=== PATIENT | female | born 1995 | race Hispanic/Latino ===

== ENCOUNTER 2017-05-30 14:33 | Emergency (ER) | payer OTHER ==
--- OUTSIDE RECORDS SUMMARY | 2017-05-30 14:36 | XMS REPORT | Clinical Summary ---
:1995 Author Organization [facility] Address [address] [place] [address] Phone Care Team Providers Name Role Phone Unavailable Primary Care Provider Unavailable Allergies No Known Allergies Current Medications Prescription Sig. Disp. Refills Start Date End Date Status MEDROXYPROGESTERONE Inject Active ACETATE (DEPO-PROVERA IM) intramuscularly . BUDESONIDE/FORMOTEROL Inhale by mouth Active FUMARATE (SYMBICORT INHL) via inhaler. naproxen (NAPROSYN) 500 Take 1 tablet 20 tablet 0 01/05/2016 MG tablet (500 mg total) 7 by mouth 2 (two) times daily with breakfast and dinner. Active Problems Not on file Social History Tobacco Use Types Packs/Day Years Used Date Current Every Day Smoker Cigarettes 0.25 Alcohol Use Drinks/Week oz/Week Comments No Sex Assigned at Date Recorded Not on file Last Filed Vital Signs Not on file Plan of Treatment Not on file Results Not on fileafter 05/29/2016
[2017-05-30] MEDS ORDERED: HYDROCODONE/APAP 5/325 MG TAB ONE (15:11)
--- NOTE | 2017-05-30 16:11 | RAD REPORT ---
EXAM DESCRIPTION: RAD - Ankle Left 3 View -05/30/2017 4:04 pm CLINICAL HISTORY: Left ankle pain status post injury FINDINGS: No fracture or dislocation is seen. Soft tissue swelling is present
--- NOTE | 2017-05-30 16:18 | EDPHYS ---
Physician Documentation [facility] Name: Britney Umana Age: 21 yrs Sex: Female : 1995 Arrival Date: 05/30/2017 Time: 14:36 Bed 23 Private MD: ED Physician Pieter Medrano HPI: 05/30 15:07 This 21 yrs old Female presents to ER via Wheelchair with complaints of Ankle kb Injury. 15:07 The patient presents with decreased range of motion, an injury, pain, that is acute, kb tenderness. The complaints affect the left ankle. Onset: The symptoms/episode began/occurred just prior to arrival. Context: The problem was sustained outdoors, resulted from walking and twisted ankle, The mechanism of injury involved inversion of the affected ankle. The patient is unable to bear weight. The patient is not able to ambulate. Associated signs and symptoms: The patient has no apparent associated signs or symptoms, Pertinent negatives: calf tenderness, fever, nausea, numbness, rash, swelling, tingling, vomiting, warmth, weakness. Modifying factors: The symptoms are alleviated by nothing, the symptoms are aggravated by weight bearing, movement. Severity of symptoms: At their worst the symptoms were mild, moderate, in the emergency department the symptoms are unchanged. The patient has not experienced similar symptoms in the past. The patient has not recently seen a physician. 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 - Social history:: Smoking status: Patient uses tobacco products, smokes one-half pack cigarettes per day. ROS: 15:07 Constitutional: Negative for fever, chills, and weight loss, Cardiovascular: Negative kb for chest pain, palpitations, and edema, Respiratory: Negative for shortness of breath, cough, wheezing, and pleuritic chest pain, Abdomen/GI: Negative for abdominal pain, nausea, vomiting, diarrhea, and constipation, Skin: Negative for injury, rash, and discoloration, Neuro: Negative for headache, weakness, numbness, tingling, and seizure. 15:07 MS/extremity: Positive for injury or acute deformity, decreased range of motion, pain, tenderness. Exam: 15:07 Constitutional: This is a well developed, well nourished patient who is awake, alert, kb and in no acute distress. Head/Face: Normocephalic, atraumatic. Chest/axilla: Normal chest wall appearance and motion. Nontender with no deformity. No lesions are appreciated. Cardiovascular: Regular rate and rhythm with a normal S1 and S2. No gallops, murmurs, or rubs. Normal PMI, no JVD. No pulse deficits. Respiratory: Lungs have equal breath sounds bilaterally, clear to auscultation and percussion. No rales, rhonchi or wheezes noted. No increased work of breathing, no retractions or nasal flaring. Abdomen/GI: Soft, non-tender, with normal bowel sounds. No distension or tympany. No guarding or rebound. No evidence of tenderness throughout. Skin: Warm, dry with normal turgor. Normal color with no rashes, no lesions, and no evidence of cellulitis. Neuro: Awake and alert, GCS 15, oriented to person, place, time, and situation. Cranial nerves II-XII grossly intact. Motor strength 5/5 in all extremities. Sensory grossly intact. Cerebellar exam normal. Normal gait. 15:07 Musculoskeletal/extremity: Extremities: grossly normal except: noted in the left lateral ankle: decreased ROM, pain, tenderness, ROM: limited active range of motion, in the left lateral ankle, Circulation is intact in all extremities. Sensation intact. Weight bearing: is unable to bear weight. Vital Signs: 14:51 BP 119 / 66; Pulse 96; Resp 17; Temp 98.0; Pulse Ox 97% on R/A; Weight 92.99 kg; Height aj 5 ft. 2 in. (157.48 cm); Pain 7/10; 16:50 BP 125 / 76; Pulse 99; Resp 16; Pulse Ox 97% on R/A; rk2 14:51 Body Mass Index 37.49 (92.99 kg, 157.48 cm) aj MDM: 15:04 Patient medically screened. kb 15:13 Data reviewed: vital signs, nurses notes. Data interpreted: Pulse oximetry: on room air kb is 97 %. Interpretation: normal. 16:16 Counseling: I had a detailed discussion with the patient and/or guardian regarding: the kb historical points, exam findings, and any diagnostic results supporting the discharge/admit diagnosis, radiology results, the need for outpatient follow up, a family practitioner, to return to the emergency department if symptoms worsen or persist or if there are any questions or concerns that arise at home. 05/30 14:52 Order name: Ankle Left 3 View XRAY; Complete Time: 16:16 kb 05/30 16:17 Order name: Crutches; Complete Time: 16:54 kb 05/30 16:17 Order name: Ankle Splint: Aircast; Complete Time: 16:54 kb Administered Medications: 15:12 Drug: [place] 5 mg-325 mg 1 tabs {Note: Rates pain 10/28.} Route: PO; rk2 15:45 Follow up: Response: No adverse reaction rk2 16:27 Drug: TORadol 60 mg Route: IM; Site: right deltoid; rk2 16:50 Follow up: Response: No adverse reaction rk2 Disposition: 05/31 08:09 Co-signature as Attending Physician, Pieter Medrano MD I agree with the assessment and wa plan of care. Disposition: 05/30/17 16:17 Discharged to Home. Impression: Sprain of unspecified ligament of left ankle. - Condition is Stable. - Discharge Instructions: Ankle Sprain, [id number]. - Prescriptions for Diclofenac Sodium 75 mg Oral Tablet, Delayed Release (E.C.) - take 1 tablet by ORAL route 2 times per day As needed; 30 tablet. - Medication Reconciliation Form, Thank You Letter, Antibiotic Education, Prescription Opioid Use form. - Follow up: Emergency Department; When: As needed; Reason: Worsening of condition. Follow up: Private Physician; When: 2 - 3 days; Reason: Recheck today's complaints, Continuance of care, Re-evaluation by your physician. Signatures: Dispatcher [employer] Em Nicolas, RYAN SARMIENTO-Gabriela Davidson, RN Pieter Keenan MD MD wa Kidder, Rhonda RN RN rk2
--- NOTE | 2017-05-30 16:18 | ER ---
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 Patient aj reports she is unable to bare weight. Transition of care: patient was not received from another setting of care. Onset of symptoms was May 30, 2017. Note Patient is laughing with friend in triage and drinking from Sonic cup. Care prior to arrival: None. 14:50 Method Of Arrival: Wheelchair aj 14:50 Acuity: CARLYLE 4 aj Triage Assessment: 14:51 General: Appears in no apparent distress. comfortable, Behavior is calm, cooperative, aj appropriate for age. Pain: Complains of pain in anterior aspect of left ankle Pain currently is 7 out of 10 on a pain scale. Neuro: Level of Consciousness is awake, alert, obeys commands, Oriented to person, place, time, situation. Respiratory: Airway is patent Respiratory effort is even, unlabored, Respiratory pattern is regular, symmetrical. Derm: Skin is intact, is healthy with good turgor, Skin is pink, warm \T\ dry. normal. Musculoskeletal: Swelling present in anterior aspect of left ankle Reports pain in anterior aspect of left ankle. RN NIGHT: 14:51 LMP 05/30/2017 aj Historical: - Allergies: 14:51 No Known Allergies; aj - Home Meds: 14:51 None [Active]; aj - PMHx: 14:51 Asthma; aj - PSHx: 14:51 None; aj - Immunization history:: Adult Immunizations up to date. - Social history:: Smoking status: Patient uses tobacco products, smokes one-half pack cigarettes per day. Screenin:16 Abuse screen: Denies threats or abuse. Nutritional screening: No deficits noted. rk2 Tuberculosis screening: No symptoms or risk factors identified. Fall Risk Fall in past 12 months (25 points). Assessment: 15:17 General: Appears in no apparent distress. well groomed, well developed, well nourished, rk2 Behavior is calm, cooperative. Pain: Complains of pain in left lateral ankle and left leg and anterior aspect of left ankle. Neuro: Level of Consciousness is alert, obeys commands, Oriented to person, place, time, situation. Respiratory: Airway is patent Trachea midline Respiratory effort is even, unlabored, Respiratory pattern is regular, symmetrical. Derm: Skin is pink, warm \T\ dry. Injury Description: Mild swelling to left ankle, pain on palpation. 16:00 Reassessment: Pt. resting in room with a friend \T\ bedside... appears to be in no rk2 obvious distress. Pt. voiced no needs \T\ this time. Vital Signs: 14:51 BP 119 / 66; Pulse 96; Resp 17; Temp 98.0; Pulse Ox 97% on R/A; Weight 92.99 kg; Height aj 5 ft. 2 in. (157.48 cm); Pain 7/10; 16:50 BP 125 / 76; Pulse 99; Resp 16; Pulse Ox 97% on R/A; rk2 14:51 Body Mass Index 37.49 (92.99 kg, 157.48 cm) aj ED Course: 14:36 Patient arrived in ED. sb2 14:51 Triage completed. aj 14:51 Arm band placed on left wrist. Patient placed in waiting room, Patient notified of wait aj time. X-ray ordered. 15:04 Ken Rai PA is PHCP. cp 15:04 Pieter Medrano MD is Attending Physician. cp 15:04 PHCP role handed off by Ken Rai PA kb 15:04 Em Harris FNP-C is PHCP. kb 15:08 Niki Powers RN is Primary Nurse. rk2 15:16 Patient has correct armband on for positive identification. Bed in low position. Call rk2 light in reach. 15:55 X-ray completed. Portable x-ray completed in exam room. Patient tolerated procedure ml well. 15:56 Ankle Left 3 View XRAY In Process Unspecified. EDMS 16:55 Crutch training done. Air stirrup applied to left ankle. Notified patient to elevate to ag prevent swelling and not to make it to tight. 17:02 No provider procedures requiring assistance completed. Patient did not have IV access rk2 during this emergency room visit. Administered Medications: 15:12 Drug: [place] 5 mg-325 mg 1 tabs {Note: Rates pain 9/10.} Route: PO; rk2 15:45 Follow up: Response: No adverse reaction rk2 16:27 Drug: TORadol 60 mg Route: IM; Site: right deltoid; rk2 16:50 Follow up: Response: No adverse reaction rk2 Outcome: 16:17 Discharge ordered by . leon 17:02 Discharged to home via wheelchair. rk2 17:02 Condition: good 17:02 Discharge instructions given to patient, Prescriptions given X 1. 17:03 Patient left the ED. rk2 Signatures: Dispatcher [employer] EDMS Em Harris, CHIEF INFORMATION OFFICER-C CHIEF INFORMATION OFFICER-CkGabriela Ingram, RN RN Krystyna Chavez Ana ag Page, Corey, PA PA cp Kidder, Rhonda RN RN rk2 Tamia Kirkland sb2
[2017-05-30] MEDS ORDERED: KETOROLAC 30 MG/ML INJ ONE (16:23)
== END 2017-05-30 17:03 | disposition home or self-care (01) ==
LOC: ER 14:33
DX: S93.402A Sprain of unspecified ligament of left ankle, initial encounter (principal); X50.1XXA Overexertion from prolonged static or awkward postures, initial encounter; Y93.01 Activity, walking, marching and hiking; Y92.9 Unspecified place or not applicable
CPT/HCPCS: 96372; 99284

== ENCOUNTER 2017-09-13 15:22 | Emergency (ER) | payer OTHER ==
--- OUTSIDE RECORDS SUMMARY | 2017-09-13 15:25 | XMS REPORT | Clinical Summary ---
:1995 Author Organization [facility] Address [address] [place] [address] Phone Care Team Providers Name Role Phone [...] Not on file Results Not on fileafter 09/12/2016
[2017-09-13] MEDS ORDERED: DIPHENHYDRAMINE 50 MG/ML VIAL ONE (16:18)
[2017-09-13] MEDS ORDERED: METOCLOPRAMIDE 10 MG/2mL INJ ONE (16:18)
[2017-09-13] MEDS ORDERED: NA CHLORIDE 0.9% 1,000 ML ONE (16:19)
[2017-09-13 16:31] LABS: Urine Blood 2+ (NEG); Urine Glucose NEGATIVE (NEG); Urine Protein TRACE (NEG); Urine pH 5.5 (5.0-7.0)
[2017-09-13 16:43] LABS: Absolute Lymphocytes (CBC) 2.4 K/uL (0.7-4.9); Absolute Monocytes 0.8 K/uL (0.1-1.3); Absolute Neutrophil 8.6 K/uL (1.8-8.0); Basophils % 0.8 % (0-1.3); Eosinophils % 0.5 % (0-4.4); Hematocrit 44.5 % (36.0-45.0); MCH 28.9 pg (27.0-35.0); MCV 87.3 fL (80-100); MPV 8.1 fL (7.6-11.3); Monocytes % 6.5 % (3.3-12.3)
[2017-09-13 16:59] LABS: BUN Blood Urea Nitrogen 9 mg/dL (7-18); Bicarbonate 24 mmol/L (21-32); Glucose Level 76 mg/dL (74-106); Potassium 3.7 mmol/L (3.5-5.1); Sodium Level 139 mmol/L (136-145)
--- NOTE | 2017-09-13 17:20 | EDPHYS ---
Physician Documentation [facility] Name: Britney Umana Age: 22 yrs Sex: Female : 1995 Arrival Date: 09/13/2017 Time: 15:30 Bed 19 Private MD: ED Physician Ken Tamayo HPI: 09/13 16:05 This 22 yrs old Female presents to ER via Ambulatory with complaints of CANT cp EAT. 16:05 multiple complaints: decreased appetite, insomnia, headache. Onset: The cp symptoms/episode began/occurred 2 week(s) ago. 16:05 Severity of symptoms: in the emergency department the symptoms are unchanged despite cp home interventions. Patient denies taking any prescribed or OTC meds or supplements. Denies depression. 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 - Social history:: Smoking status: Patient uses tobacco products, 4- 5 cigarettes per week, Patient uses alcohol, occasionally. Patient/guardian denies using street drugs. - Ebola Screening: : Patient denies travel to an Ebola-affected area in the 21 days before illness onset. ROS: 16:12 Constitutional: Negative for body aches, chills, fever, poor PO intake, weight loss. cp 16:12 Eyes: Negative for injury, pain, redness, and discharge. cp 16:12 ENT: Negative for drainage from ear(s), ear pain, rhinorrhea, sinus congestion, sore throat, difficulty swallowing, difficulty handling secretions. 16:12 Neck: Negative for pain with movement, pain at rest, stiffness, swollen nodes. 16:12 Cardiovascular: Negative for chest pain, palpitations. 16:12 Respiratory: Negative for cough, shortness of breath, wheezing. 16:12 Abdomen/GI: Positive for nausea, Negative for abdominal pain, vomiting, diarrhea, constipation, black/tarry stool, rectal bleeding. 16:12 Back: Negative for pain at rest, pain with movement, radiated pain. 16:12 : Negative for urinary symptoms, vaginal bleeding, vaginal discharge. 16:12 Skin: Negative for cellulitis, rash. 16:12 Neuro: Positive for dizziness, headache, Negative for altered mental status, speech changes, syncope, near syncope, weakness. 16:12 Psych: Positive for insomnia, Negative for anxiety, depression, auditory hallucinations, visual hallucinations, homicidal ideation, suicide gesture, suicidal ideation. 16:12 All other systems are negative. Exam: 16:18 Constitutional: The patient appears in no acute distress, alert, awake, non-toxic, well cp developed, well nourished. 16:18 Head/Face: Normocephalic, atraumatic. Eyes: Pupils equal round and reactive to light, cp extra-ocular motions intact. Lids and lashes normal. Conjunctiva and sclera are non-icteric and not injected. Cornea within normal limits. Periorbital areas with no swelling, redness, or edema. ENT: Nares patent. No nasal discharge, no septal abnormalities noted. Tympanic membranes are normal and external auditory canals are clear. Oropharynx with no redness, swelling, or masses, exudates, or evidence of obstruction, uvula midline. Mucous membranes moist. Neck: Trachea midline, no thyromegaly or masses palpated, and no cervical lymphadenopathy. Supple, full range of motion without nuchal rigidity, or vertebral point tenderness. No Meningismus. Chest/axilla: Normal chest wall appearance and motion. Nontender with no deformity. No lesions are appreciated. 16:18 Cardiovascular: Rate: normal, Rhythm: regular, Pulses: Pulses are 2+ in right radial artery and left radial artery. Edema: is not appreciated, JVD: is not appreciated. 16:18 Respiratory: the patient does not display signs of respiratory distress, Respirations: normal, no use of accessory muscles, no retractions, no splinting, no tachypnea, Breath sounds: are clear throughout, no decreased breath sounds, no stridor, no wheezing. 16:18 Abdomen/GI: Inspection: abdomen appears normal, Bowel sounds: active, all quadrants, Palpation: abdomen is soft and non-tender, in all quadrants, rebound tenderness, is not appreciated, voluntary guarding, is not appreciated, involuntary guarding, is not appreciated. 16:18 Back: pain, is absent, ROM is normal. 16:18 Skin: cellulitis, is not appreciated, no rash present. 16:18 Neuro: Orientation: to person, place \T\ time. Mentation: lucid, able to follow commands, Cerebellar function: is grossly normal, Motor: moves all fours, strength is normal, Sensation: is normal. 16:22 ECG was reviewed by the Attending Physician. cp Vital Signs: 15:35 BP 134 / 92; Pulse 88; Resp 18; Temp 97.7(TE); Pulse Ox 99% on R/A; Weight 92.99 kg aj1 (R); Height 5 ft. 2 in. (157.48 cm) (R); Pain 6/10; 16:25 BP 107 / 76 Supine; Pulse 92; em 16:25 BP 87 / 55 Sitting; Pulse 94; em 16:25 BP 78 / 69 Standing; Pulse 101; em 16:52 BP 100 / 61; Pulse 92; Resp 18; Pulse Ox 100% on R/A; dh3 17:53 BP 113 / 76; Pulse 85; Resp 18; Temp 98.1(O); Pulse Ox 100% on R/A; em 15:35 Body Mass Index 37.49 (92.99 kg, 157.48 cm) aj1 MDM: 15:42 Patient medically screened. cp 17:18 Data reviewed: vital signs, nurses notes, lab test result(s), EKG. cp 17:18 Test interpretation: by ED physician or midlevel provider: ECG. Counseling: I had a cp detailed discussion with the patient and/or guardian regarding: the historical points, exam findings, and any diagnostic results supporting the discharge/admit diagnosis, lab results, the need for outpatient follow up, a family practitioner. Response to treatment: the patient's symptoms have mildly improved after treatment, Patient requesting to be discharged to home, and as a result, I will discharge patient. 09/13 16:02 Order name: CBC with Diff; Complete Time: 17:02 09/13 17:02 Interpretation: Normal except: WBC 11.9; RBC 5.10; MCV 87.3; MCH 28.9; NEUT A 8.6. 09/13 16:02 Order name: BMP; Complete Time: 17:02 09/13 16:02 Order name: TSH; Complete Time: 17:02 09/13 16:16 Order name: Urine Dipstick--Ancillary (enter results); Complete Time: 17:02 09/13 17:02 Interpretation: Normal except: UKET 2+; UBLD 2+. cp 09/13 16:16 Order name: Urine --Ancillary (enter results); Complete Time: 17:02 eb 09/13 15:42 Order name: Urine Dipstick-Ancillary (obtain specimen); Complete Time: 16:23 cp 09/13 15:42 Order name: Urine Test (obtain specimen); Complete Time: 16:23 cp 09/13 15:42 Order name: Orthostatics; Complete Time: 16:23 cp 09/13 16:02 Order name: IV; Complete Time: 16:23 cp 09/13 16:02 Order name: Misc. Order: place in IV fluids; Complete Time: 17:53 cp 09/13 16:02 Order name: EKG; Complete Time: 16:03 cp 09/13 16:02 Order name: EKG - Nurse/Tech; Complete Time: 16:23 cp 09/13 17:04 Order name: PO challenge; Complete Time: 17:53 cp EC:22 Rhythm is regular. UT interval is normal. QRS interval is normal. QT interval is cp normal. No ST changes noted. Interpreted by me. Reviewed by me. Administered Medications: 16:48 Drug: NS 0.9% 1000 ml Route: IV; Rate: 1 bolus; Site: right antecubital; em 18:01 Follow up: IV Status: Completed infusion; IV Intake: 1000ml em 16:52 Drug: Reglan 20 mg Route: IVP; Site: right antecubital; iw 18:01 Follow up: Response: No adverse reaction em 16:52 Drug: Benadryl 25 mg Route: IVP; Site: right antecubital; iw 18:01 Follow up: Response: No adverse reaction em Disposition: 09/13/17 17:19 Discharged to Home. Impression: Dehydration, Headache. - Condition is Stable. - Discharge Instructions: Dehydration, Adult, General Headache Without Cause. - Prescriptions for Fiorinal 50- 325-40 mg Oral Capsule - take 1 capsule by ORAL route every 4 hours As needed - not to exceed 6 capsules per day; 20 capsule. Zofran 4 mg Oral Tablet - take 1 tablet by ORAL route every 12 hours As needed; 20 tablet. - Medication Reconciliation Form, Thank You Letter, Antibiotic Education, Prescription Opioid Use form. - Follow up: Private Physician; When: 1 - 2 days; Reason: Recheck today's complaints. - Problem is new. - Symptoms have improved. Addendum: 09/16/2017 10:05 Co-signature as Attending Physician, Ken Tamayo MD I agree with the assessment and c francisco plan of care. Signatures: Dispatcher [employer] Amy Corrigan RN RN aj1 Kne Tamayo MD MD cha Munoz, Edgar, SOFTWARE TEST TECHNICIAN SOFTWARE TEST TECHNICIAN em Karely Olvera RN OBIE iw Ken Rai PA PA cp Corrections: (The following items were deleted from the chart) 09/13 18:02 17:19 09/13/2017 17:19 Discharged to Home. Impression: Dehydration; Headache. Condition em is Stable. Forms are Medication Reconciliation Form, Thank You Letter, Antibiotic Education, Prescription Opioid Use. Follow up: Private Physician; When: 1 - 2 days; Reason: Recheck today's complaints. Problem is new. Symptoms have improved. cp
--- NOTE | 2017-09-13 17:20 | ER ---
Nurse's Notes [facility] Name: Britney Umana Age: 22 yrs Sex: Female : 1995 Arrival Date: 09/13/2017 Time: 15:30 Bed 19 Private MD: Diagnosis: Dehydration;Headache Presentation: 09/13 15:31 Presenting complaint: Patient states: "For a couple weeks now I've been having these aj1 little problems like staying up really late and it started getting worse and worse, where I go days without sleeping and when I do sleep its only for 2 hours. I've started slowing down on eating too. I haven't eaten anything in 3 days. I'm shaking I passed out twice today, my vision has been going in and out". Transition of care: patient was not received from another setting of care. Onset of symptoms was August 2017. Risk Assessment: Do you want to hurt yourself or someone else? Patient reports no desire to harm self or others. Initial Sepsis Screen: Does the patient meet any 2 criteria? No. Patient's initial sepsis screen is negative. Does the patient have a suspected source of infection? No. Patient's initial sepsis screen is negative. Care prior to arrival: None. 15:31 Method Of Arrival: Ambulatory aj1 15:31 Acuity: CARLYLE 3 aj1 Triage Assessment: 15:35 General: Appears in no apparent distress. comfortable, Behavior is calm, cooperative, aj1 appropriate for age. Pain: Complains of pain in forehead, right eye and left eye Pain currently is 6 out of 10 on a pain scale. Quality of pain is described as pounding. Neuro: Level of Consciousness is awake, alert, obeys commands, Oriented to person, place, time, situation, Speech is normal, Facial symmetry appears normal, Reports dizziness, a syncopal episode. Cardiovascular: Patient's skin is warm and dry. Respiratory: Airway is patent Respiratory effort is even, unlabored, Respiratory pattern is regular, symmetrical. SEO STRATEGIST: 15:35 LMP N/A - control method aj1 Historical: - Allergies: 15:35 No Known Allergies; aj1 - Home Meds: 15:35 None [Active]; aj1 - PMHx: 15:35 Asthma; aj1 - PSHx: 15:35 None; aj1 - Immunization history:: Flu vaccine is not up to date. - Social history:: Smoking status: Patient uses tobacco products, 4- 5 cigarettes per week, Patient uses alcohol, occasionally. Patient/guardian denies using street drugs. - Ebola Screening: : Patient denies travel to an Ebola-affected area in the 21 days before illness onset. Screenin:30 Abuse screen: Denies threats or abuse. Nutritional screening: No deficits noted. em Tuberculosis screening: No symptoms or risk factors identified. Fall Risk None identified. Assessment: 16:20 General: Appears in no apparent distress. comfortable, Behavior is calm, cooperative, em Reports chills for not eating and drinking minimally for 3 days, has headache that won't go away. Pain: Complains of pain in head Pain currently is 6 out of 10 on a pain scale. Neuro: Level of Consciousness is awake, alert, obeys commands, Oriented to person, place, time, situation. Cardiovascular: Capillary refill < 3 seconds Patient's skin is warm and dry. Respiratory: Airway is patent Respiratory effort is even, unlabored, Respiratory pattern is regular, symmetrical. GI: Abdomen is round non-distended. : Urine is clear. EENT: No signs and/or symptoms were reported regarding the EENT system. Derm: Skin is intact, Skin is pink, warm \\T\\ dry. Musculoskeletal: Range of motion: intact in all extremities. 16:45 Reassessment: Patient appears in no apparent distress at this time. I agree with above iw assessment by Jasvir Pollack LVN. 17:20 Reassessment: Patient appears in no apparent distress at this time. Patient and/or em family updated on plan of care and expected duration. Pain level reassessed. Patient is alert, oriented x 3, equal unlabored respirations, skin warm/dry/pink. 17:50 Reassessment: Patient appears in no apparent distress at this time. Patient and/or em family updated on plan of care and expected duration. Pain level reassessed. given water for PO challenge, tolerated well. Vital Signs: 15:35 BP 134 / 92; Pulse 88; Resp 18; Temp 97.7(TE); Pulse Ox 99% on R/A; Weight 92.99 kg aj1 (R); Height 5 ft. 2 in. (157.48 cm) (R); Pain 6/10; 16:25 BP 107 / 76 Supine; Pulse 92; em 16:25 BP 87 / 55 Sitting; Pulse 94; em 16:25 BP 78 / 69 Standing; Pulse 101; em 16:52 BP 100 / 61; Pulse 92; Resp 18; Pulse Ox 100% on R/A; dh3 17:53 BP 113 / 76; Pulse 85; Resp 18; Temp 98.1(O); Pulse Ox 100% on R/A; em 15:35 Body Mass Index 37.49 (92.99 kg, 157.48 cm) aj1 ED Course: 15:30 Patient arrived in ED. jb7 15:34 Triage completed. aj1 15:35 Arm band placed on. aj1 15:38 Patient placed in an exam room. aj1 15:41 Ken Rai PA is PHCP. cp 15:41 Ken Tamayo MD is Attending Physician. cp 15:49 Jasvir Pollack LVN is Primary Nurse. em 16:10 Urine collected: clean catch specimen, cloudy. 3 16:22 EKG done, by aviation safety technician. reviewed by Ken CROW. 3 16:22 Initial lab(s) drawn, by me, sent to lab. Inserted saline lock: 20 gauge in right 3 antecubital area, using aseptic technique. Blood collected. 16:30 Patient has correct armband on for positive identification. Bed in low position. Call em light in reach. Side rails up X2. 17:57 No provider procedures requiring assistance completed. IV discontinued, intact, em bleeding controlled, No redness/swelling at site. Pressure dressing applied. Administered Medications: 16:48 Drug: NS 0.9% 1000 ml Route: IV; Rate: 1 bolus; Site: right antecubital; em 18:01 Follow up: IV Status: Completed infusion; IV Intake: 1000ml em 16:52 Drug: Reglan 20 mg Route: IVP; Site: right antecubital; iw 18:01 Follow up: Response: No adverse reaction em 16:52 Drug: Benadryl 25 mg Route: IVP; Site: right antecubital; iw 18:01 Follow up: Response: No adverse reaction em Intake: 18:01 IV: 1000ml; Total: 1000ml. em Outcome: 17:19 Discharge ordered by . cp 18:02 Patient left the ED. em Signatures: Amy Chang RN RN aj1 Jasvir Pollack, BOARD FILLER BOARD FILLER em Karely Olvera RN RN iw Ken Rai PA PA cp Bryant, Jason jb7 Reena La 3 Delmi Fatima 3 Corrections: (The following items were deleted from the chart) 16:30 No provider procedures requiring assistance completed. em em 57 16:30 IV discontinued, intact, bleeding controlled, No redness/swelling at site. em Pressure dressing applied, em
--- NOTE | 2017-09-13 18:07 | EKG ---
Test Date: 2017-09-13 Test Time: 16:12:22 Body Man: SUZANNE MEASUREMENT RESULTS: Intervals: Rate: 87 MI: 124 QRSD: 80 QT: 362 QTc: 435 [place]: P: 15 MI: 124 QRS: 63 T: 26 INTERPRETIVE STATEMENTS: Normal sinus rhythm Normal ECG Compared to ECG 09/25/2014 01:32:05 No significant changes Electronically Signed On 09-13-17 18:06:16 CDT by Capo Baxter
== END 2017-09-13 18:02 | disposition home or self-care (01) ==
LOC: ER 15:22
DX: E86.0 Dehydration (principal); R51 Headache; J45.909 Unspecified asthma, uncomplicated; Z72.0 Tobacco use
CPT/HCPCS: 36415; 80048; 81003; 81025; 84443; 85025; 93005; 96361; 96374; 96375; 99284; J2765; J7030

== ENCOUNTER 2019-08-17 16:41 | Emergency (ER) | payer OTHER ==
--- OUTSIDE RECORDS SUMMARY | 2019-08-17 17:25 | XMS REPORT | Summary of Care ---
:1995 Author Organization [facility] - Health Address [address] [place] [address] Care Team Providers Name Role Phone Doctor Unassigned, Name Insurance Hmo Unavailable Sandro Moran MD Primary Care Provider Encounter Details Date Type Department Care Team Description 06/08/2019 Orders Only [facility] Doctor Unassigned, No [address] [facility] [place] [address] [address] [place] [address] Allergies Active Allergy Reactions Severity Noted Date Comments Egg Unknown - See comments 03/20/2013 Nasal congestion and stuffy nose Milk Other - See comments 03/20/2013 Nasal c ongestion and stuffy nose documented as of this encounter (statuses as of 06/08/2019) Medications Medication Sig Dispensed Refills Start Date End Date Status PROAIR HFA 90 INHALE 2 PUFFS 1 08/10/2015 Active mcg/actuation inhaler EVERY 4-6 HOURSAS NEEDED vit Take 1 Packet by 30 Each 6 01/20/2018 Active 50-vips-nbkjj-dha mouth daily. (SELECT-OB + DHA) 29 mg iron-1 mg -250 mg combo packIndications: Supervision of high risk , antepartum ferrous sulfate (IRON, Take 1 tablet by 60 tablet 3 08/21/2018 Active FERROUS SULFATE,) 325 mouth 2 (two) mg (65 mg iron) times daily. tabletIndications: Anemia of mother in , antepartum vitamin w/FA Take 1 tablet by 100 tablet 3 09/03/2018 Active tabletIndications: mouth daily. Liveborn , of [place] , born in hospital by vaginal delivery, Morbid obesity with body mass index of 40.0-49.9, Insufficient care in third trimester, 39 weeks gestation of , Encounter for elective induction of labor docusate calcium 240 Take 1 capsule by 30 capsule 1 09/03/2018 Active mg capsuleIndications: mouth once daily Liveborn infant, of as needed for [place] , Constipation. born in hospital by vaginal delivery, Morbid obesity with body mass index of 40.0-49.9, Insufficient care in third trimester, 39 weeks gestation of , Encounter for elective induction of labor ferrous sulfate 325 mg Take 1 tablet by 60 tablet 2 09/03/2018 Active (65 mg iron) mouth 2 (two) tabletIndications: times daily. Liveborn , of [place] , born in hospital by vaginal delivery, Morbid obesity with body mass index of 40.0-49.9, Insufficient care in third trimester, 39 weeks gestation of , Encounter for elective induction of labor ibuprofen 600 mg Take 1 tablet by 30 tablet 1 09/03/2018 Active tabletIndications: mouth every 6 Liveborn infant, of (six) hours as [place] , needed for Pain born in hospital by (scale 1-3) or vaginal delivery, Pain (scale 4-6) Morbid obesity with (Pain). Take with body mass index of food or milk. 40.0-49.9, Insufficient care in third trimester, 39 weeks gestation of , Encounter for elective induction of labor SERTraline (ZOLOFT) 50 Take 1 tablet by 30 tablet 2 09/24/2018 Active mg tabletIndications: mouth daily. depression documented as of this encounter (statuses as of 06/08/2019) Active Problems Problem Noted Date 39 weeks gestation of 09/01/2018 Insufficient care in third trimester 07/02/19 19 Right arm weakness 05/29/2018 Morbid obesity with body mass index of 40.0-49.9 05/29 Depression, unspecified depression type 02/19/2018 Rubella non-immune status, antepartum 02/19/2018 Overview: Address in Maternal varicella, non-immune 02/19/2018 Overview: Address in . High risk , antepartum 01/20/2018 Multiparity 01/20/2018 Obesity in 01/20/2018 Left breast mass 01/17/2017 Overview: LEFT BREAST: Solid mass on ultrasound at 2 o'clock. 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 Since it has grown in size over time histology using core biopsy is recommended at this time. OVERALL ASSESSMENT - CATEGORY 4A - LOW S USPICION END OF IMPRESSION Asthma 03/20/2013 Overview: ICD10 Diagnosis Term Manager Health Utility documented as of this encounter (statuses as of 06/08/2019) Resolved Problems Problem Noted Date Resolved Date Liveborn infant, of [place] , born in hospital by 09/03/2018 10/27/2018 vaginal delivery Encounter for elective induction of labor 09/01/2018 10/27/2018 24 weeks gestation of 05/29/2018 09/02/19 19 Nausea and vomiting during prior to 22 weeks 01/2009/01/2018 gestation Encounter for contraceptive management, unspecified type 11/201701/20/2018 Chlamydia trachomatis infection of lower genitourinary sites 01/18/2017 01/20/2018 Tobacco use disorder 01/17/2017 01/20/2018 Right foot pain 08/31/2015 01/17/2017 Lower back pain 03/20/2013 01/17/2017 Lump or mass in breast 03/20/2013 01/17/2017 Rubella immune 03/20/2013 01/17/2017 documented as of this encounter (statuses as of 06/08/2019) Immunizations Name Administration Dates Next Due HPV9 01/17/2017 Influenza Virus Vaccine 12/10/2017 Tdap 07/01/2018 documented as of this encounter Social History Tobacco Use Types Packs/Day Years Used Date Former Smoker Cigarettes 0.25 4 01/17/2013 - 1 03/08/2017 Smokeless Tobacco: Never Used Comments: desires to quit smoking- 4x a month Alcohol Use Drinks/Week oz/Week Comments No 0 Standard drinks or equivalent 0.0 Sex Assigned at Date Recorded Not on file Job Start Date Occupation Industry Not on file Not on file Not on file Travel History Travel Start Travel End No recent travel history available. documented as of this encounter Last Filed Vital Signs Not on filedocumented in this encounter Plan of Treatment Date Type Specialty Care Team Description 06/08/2019 Initial Visit [facility] [place]y [place], [employer] [address] [id number] 15 [phone] Health Maintenance Due Date Last Done Comments VARICELLA VACCINES (1 of 2 - 1998 2-dose childhood series) PNEUMOCOCCAL 0-64 YEARS 07/12/2003 COMBINED SERIES (1 of 1 - PPSV23) MENINGOCOCCAL B VACCINES (1 07/12/2007 of 2 - Risk Bexsero 2-dose series) WELL CARE VISIT: 12-21 YEARS 2009 (yearly) HPV VACCINES (2 - Female 02/14/2017 01/17/2017 3-dose series) PAP SMEAR 2018 INFLUENZA VACCINE (#1) 2018 12/10/2017, 12/10/2017 CHLAMYDIA SCREENING 08/19/2019 08/18/2018, 07/30/2018, 02/17/2018, Additional history exists DTaP,Tdap,and Td Vaccines (2 07/01/2028 07/01/2018 - Td) MENINGOCOCCAL VACCINE Aged Out No longer eligible based on patient 's age to complete this topic documented as of this encounter Procedures Procedure Name Priority Date/Time Associated Diagnosis Comme nts ASSIGNMENT OF BENEFITS Routine 06/08/2019 1:53 PM CDT documented in this encounter Results Not on filedocumented in this encounter Insurance Payer Benefit Plan / Subscriber ID Effective Dates Phone Addre ss Type Group [facility] MEDICAID OF xxxxxxxxx 2019-Present [phone] Medicaid [place] [id number] [place] [phone] documented as of this encounter Advance Directives Type Date Recorded 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
--- OUTSIDE RECORDS SUMMARY | 2019-08-17 17:25 | XMS REPORT | Clinical Summary ---
:1995 Author Organization [facility] Address [address] [place] [address] Care Team Providers Name Role Phone Juni Primary Care Provider Allergies No Known Allergies Medications Medication Sig Dispensed Refills Start Date End Date Status MEDROXYPROGESTERONE ACETATE Inject 0 Active (DEPO-PROVERA IM) intramuscular ly. BUDESONIDE/FORMOTEROL Inhale by 0 Active FUMARATE (SYMBICORT INHL) mouth via inhaler. Active Problems Not on file Social History Tobacco Use Types Packs/Day Years Used Date Current Every Day Smoker Cigarettes 0.25 Alcohol Use Drinks/Week oz/Week Comments No Sex Assigned at Date Recorded Not on file Job Start Date Occupation Industry Not on file Not on file Not on file Travel History Travel Start Travel End No recent travel history available. Last Filed Vital Signs Not on file Plan of Treatment Not on file Results Not on fileafter 08/16/2018 Insurance Payer Benefit Plan / Group Subscriber ID Type Phone A ddress MEDICAID MEDICAID [place] xxxxxxxxx Medicaid
--- OUTSIDE RECORDS SUMMARY | 2019-08-17 17:26 | XMS REPORT | Summary of Care ---
:1995 Author Organization [facility] Address [address] [place] [id number] Care Team Providers Name Role Phone Doctor Unassigned, Name Insurance Hmo Unavailable Sandro Moran MD Primary Care Provider Reason for Visit Reason Comments Initial Visit Encounter Details Date Type Department Care Team Description 06/08/2019 Initial [facility]- Julia England upervision of high risk , antepartum (Primary Dx); Visit Karen R, [employer] Multiparity; [address] [place] [address] Nausea and vomiting during p regnancy prior to 22 weeks gestation; [place], [place] History of anxiety; [id number] [place], [place] History of depression; [phone] [id number] History of asthma; [phone] Obesity in ; [phone] BMI 38.0-38.9,a dult (Fax) Allergies Active Allergy Reactions Severity Noted Date Comments Egg Unknown - See comments 03/20/2013 Nasal congestion and stuffy nose Milk Other - See comments 03/20/2013 Nasal c ongestion and stuffy nose documented as of this encounter (statuses as of 06/08/2019) Medications Medication Sig Dispensed Refills Start Date End Date Status PROAIR HFA 90 INHALE 2 PUFFS 1 08/10/2015 Active mcg/actuation EVERY 4-6 inhaler HOURSAS NEEDED proMETHazine 25 mg Take 1 tablet 30 tablet 1 06/08/2019 Active tabletIndications: by mouth every Nausea and 4 (four) hours vomiting during as needed for prior to Nausea and 22 weeks gestation Vomiting (N/V). vit Take 1 Packet 30 Each 6 06/08/2019 Ac tive 67-muax-ozexw-dha by mouth (SELECT-OB + DHA) daily. 29 mg iron-1 mg -250 mg combo packIndications: Supervision of high risk , antepartum vit Take 1 Packet 30 Each 6 01/20/2018 06/08/2019 D iscontinued 61-qgdf-eziqi-dha by mouth (SELECT-OB + DHA) daily. 29 mg iron-1 mg -250 mg combo packIndications: Supervision of high risk , antepartum ferrous sulfate Take 1 tablet 60 tablet 3 08/21/2018 0 Discontinued (IRON, FERROUS by mouth 2 SULFATE,) 325 mg (two) times (65 mg iron) daily. tabletIndications: Anemia of mother in , antepartum vitamin Take 1 tablet 100 tablet 3 09/03/2018 020 Discontinued w/FA by mouth tabletIndications: daily. Liveborn infant, of [place] , born in hospital by vaginal delivery, Morbid obesity with body mass index of 40.0-49.9, Insufficient care in third trimester, 39 weeks gestation of , Encounter for elective induction of labor docusate calcium Take 1 capsule 30 capsule 1 09/03/20182019 Discontinued 240 mg by mouth once capsuleIndications daily as : Liveborn infant, needed for of mchgee Constipation. , born in hospital by vaginal delivery, Morbid obesity with body mass index of 40.0-49.9, Insufficient care in third trimester, 39 weeks gestation of , Encounter for elective induction of labor ferrous sulfate Take 1 tablet 60 tablet 2 09/03/2018 0 Discontinued 325 mg (65 mg by mouth 2 iron) (two) times tabletIndications: daily. Liveborn infant, of [place] , born in hospital by vaginal delivery, Morbid obesity with body mass index of 40.0-49.9, Insufficient care in third trimester, 39 weeks gestation of , Encounter for elective induction of labor ibuprofen 600 mg Take 1 tablet 30 tablet 1 09/03/2018 06/08/19 20 Discontinued tabletIndications: by mouth every Liveborn infant, 6 (six) hours of [place] as needed for , born in Pain (scale hospital by 1-3) or Pain vaginal delivery, (scale 4-6) Morbid obesity (Pain). Take with body mass with food or index of milk. 40.0-49.9, Insufficient care in third trimester, 39 weeks gestation of , Encounter for elective induction of labor SERTraline Take 1 tablet 30 tablet 2 09/24/2018 06/08/2019 Dis continued (ZOLOFT) 50 mg by mouth tabletIndications: daily. depression documented as of this encounter (statuses as of 06/08/2019) Active Problems Problem Noted Date History of anxiety 06/08/2019 History of depression 06/08/2019 History of asthma 06/08/2019 BMI 38.0-38.9,adult 06/08/2019 39 weeks gestation of 09/01/2018 Insufficient care in third trimester 07/02/19 19 Right arm weakness 05/29/2018 Morbid obesity with body mass index of 40.0-49.9 05/29 Depression, unspecified depression type 02/19/2018 Rubella non-immune status, antepartum 02/19/2018 Overview: Address in Maternal varicella, non-immune 02/19/2018 Overview: Address in . Supervision of high risk , antepartum 018 Nausea and vomiting during prior to 22 weeks gestation 01/20/2018 Multiparity 01/20/2018 Obesity in 01/20/2018 Left breast mass 01/17/2017 Overview: LEFT BREAST: Solid mass on ultrasound at 2 o'clock. 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 Since it has grown in size over time histology using core biopsy is recommended at this time. 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 Estimated Date of Delivery Comments Yes 01/19/2020 Based on last menstr ual period of 04/14/2019 (Exact Date) documented as of this encounter (statuses as of 06/08/2019) Resolved Problems Problem Noted Date Resolved Date Liveborn infant, of [place] , born in hospital by 09/03/2018 10/27/2018 vaginal delivery Encounter for elective induction of labor 09/01/2018 10/27/2018 24 weeks gestation of 05/29/2018 09/02/19 19 Encounter for contraceptive management, unspecified type 11/201701/20/2018 [...] Use Types Packs/Day Years Used Date Current Some Day Smoker Cigarettes 0.25 4 12/21 - 01/06/2018 Smokeless Tobacco: Never Used Comments: 1-2 cig less than a day per wk Alcohol Use Drinks/Week oz/Week Comments No 0 Standard drinks or equivalent 0.0 Estimated Date of Delivery Comments Yes 01/19/2020 Based on last menstr ual period of 04/14/2019 (Exact Date) Sex Assigned at Date Recorded Not on file Job Start Date Occupation Industry Not on file Not on file Not on file Travel History Travel Start Travel End No recent travel history available. documented as of this encounter Last Filed Vital Signs Vital Sign Reading Time Taken Comments Blood Pressure 109/76 06/08/2019 2:14 PM CDT Pulse 91 06/08/2019 2:14 PM CDT Temperature 37.3 C (99.1 F) 06/08/2019 2:14 PM CDT Respiratory Rate 16 06/08/2019 2:14 PM CDT Oxygen Saturation - - Inhaled Oxygen Concentration - - Weight 95 kg (209 lb 8 oz) 06/08/2019 2:14 PM CDT Height 157.5 cm (5' 2") 06/08/2019 2:14 PM CDT Body Mass Index 38.32 06/08/2019 2:14 PM CDT documented in this encounter Progress Notes Julia England FNP - 06/08/2019 2:15 PM CDT Chief complaint: Chief Complaint Patient presents with Initial Visit HPI CC: Initial Visit Britney Umana is a 23 year old, , /White female. Patient's last menstrual period was 04/14/2019 (exact date). She is 7w6d with an intrauterine . Her Estimated Date of Delivery: 01/19/20. She is being seen today for her first obstetrical visit. She complains of nausea and vomiting. Patient has a history of depression and anxiety was on medication but is no longer taking them. Patient also so has a history of asthma, no current problems. Patient admits to being tested for COVID 19 in [place], results on chert, negative. She reports +FM and denies contractions, LOF and bleeding today.Patient denies current or past physical, sexual or emotional abuse. OB History Para Term AB Living 3 2 2 0 2 SAB TAB Ectopic Multiple Live Births 0 2 # Outcome Date GA Lbr Avtar/2nd Weight Sex Delivery Anes PTL Lv 3 Current 2 Term 09/02/18 39w3d 6 lb 5 oz (2.863 kg) F Vag-Spont JOSE 1 Term 02/02/14 37w0d 6 lb 15 oz (3.147 kg) F NORMAL SPONT N JOSE Histories OB History Para Term AB Living 3 2 2 0 2 SAB TAB Ectopic Multiple Live Births 0 2 # Outcome Date GA Lbr Avtar/2nd Weight Sex Delivery Anes PTL Lv 3 Current 2 Term 09/02/18 39w3d 6 lb 5 oz (2.863 kg) F Vag-Spont JOSE 1 Term 02/02/14 37w0d 6 lb 15 oz (3.147 kg) F NORMAL SPONT N JOSE Past Medical History: Diagnosis Date Anxiety 02/2018 resolved Asthma as a child, uses proair inhaler prn Depression, unspecified depression type 02/19/2018 Right foot pain 08/31/2015 Tobacco use disorder 01/17/2017 Family History Problem Relation Age of Onset Depression Mother Hypertension Mother Depression Maternal Aunt Breast Cancer Paternal Grandmother No Significant Medical Problems Father No Significant Medical Problems Sister No Significant Medical Problems Brother Arthritis NoFHx Asthma NoFHx defects NoFHx Colon Cancer NoFHx Ovarian Cancer NoFHx Uterine Cancer NoFHx Cancer NoFHx Diabetes NoFHx Genetic NoFHx Heart NoFHx High cholesterol NoFHx Mental retardation NoFHx Neurological NoFHx Osteoporosis NoFHx Psychiatry NoFHx Other - see comments NoFHx Family Status Relation Name Status Mo Alive MAunt (Not Specified) PGMo (Not Specified) Fa Alive Sis Alive Bro Alive NoFHx (Not Specified) Past Surgical History: Procedure Laterality Date INSERT CERVICAL DILATOR 09/01/2018 Social History Socioeconomic History Marital status: Single Spouse name: Not on file Number of children: Not on file Years of education: Not on file Highest education level: Not on file Occupational History Occupation: student Social Needs Financial resource strain: Not on file Food insecurity: Worry: Not on file Inability: Not on file Transportation needs: Medical: Not on file Non-medical: Not on file Tobacco Use Smoking status: Current Some Day Smoker Packs/day: 0.25 Years: 4.00 Pack years: 1.00 Types: Cigarettes Start date: 01/17/2013 Last attempt to quit: 01/06/2018 Years since quittin.4 Smokeless tobacco: Never Used Tobacco comment: 1-2 cig less than a day per wk Substance and Sexual Activity Alcohol use: No Alcohol/week: 0.0 standard drinks Drug use: No Sexual activity: Yes Partners: Male control/protection: None Comment: Last sexual intercourse: 04/05/2019 Lifestyle Physical activity: Days per week: Not on file Minutes per session: Not on file Stress: Not on file Relationships Social connections: Talks on phone: Not on file Gets together: Not on file Attends buddhist service: Not on file Active member of club or organization: Not on file Attends meetings of clubs or organizations: Not on file Relationship status: Not on file Intimate partner violence: Fear of current or ex partner: Not on file Emotionally abused: Not on file Physically abused: Not on file Forced sexual activity: Not on file Other Topics Concern Not on file Social History Narrative No domestic violence or abuse Patient lives with boyfriend and children. One inside dog. Religion preference is none. Social History Substance and Sexual Activity Sexual Activity Yes Partners: Male control/protection: None Comment: Last sexual intercourse: 04/05/2019 Genetic Screen Autism / Mental Retardation: No Brissa Disease: No Congenital Heart Defect: No Cystic Fibrosis: No Down Syndrome: No Familial Dysautonomia: No Hemophilia or other Blood Disorders: No Wilkes Chorea: No Maternal Metabolic Disorder--specify (eg. Type 1 Diabetes, PKU): No Muscular Dystrophy: No Neural Tube Defect: No Recurrent Loss or a Stillbirth: No Sickle Cell Disease or Trait: No German Sachs: No Teratological Substances (specify type & strength/dose) since LMP: No Thalassemia: No Other Inherited Genetic or Chromosomal Disorder (specify): No No Significant History of Genetic Disorders: No Significant History of Genetic Disorders Labs Labs are pending. Radiology No new radiology. Allergies Britney is allergic to eggs [egg] and milk. Medications Britney has a current medication list which includes the following prescription(s): proair hfa. Review of Systems Constitutional: Negative for activity change, appetite change, fatigue, unexpected weight change, weight gain and weight loss. HENT: Negative for sore throat. Eyes: Negative for visual disturbance. Respiratory: Negative for cough and shortness of breath. Breasts: Negative for discharge, mass, pain and unequal size. Cardiovascular: Negative for chest pain, palpitations and leg swelling. Gastrointestinal: Positive for nausea and vomiting. Negative for abdominal pain, anal bleeding, blood in stool, constipation, diarrhea and rectal pain. Genitourinary: Negative for bladder incontinence, dysuria, urgency, flank pain, vaginal bleeding, vaginal discharge, genital sores, vaginal pain and pelvic pain. Skin: Negative for color change and rash. Neurological: Negative. Negative for dizziness, syncope and headaches. Psychiatric/Behavioral: Negative for confusion, self-injury and sleep disturbance. The patient is not nervous/anxious. Hematological: Negative for cold intolerance and heat intolerance. Endocrine: Negative for hair loss, cold intolerance, heat intolerance, weight gain and weight loss. BP 109/76 (BP Location: Right arm, Patient Position: Sitting, BP CUFF SIZE: Adult Medium) | Pulse 91 | Temp 37.3 C (99.1 F) (Oral) | Resp 16 | Ht 5' 2" (1.575 m) | Wt 209 lb 8 oz (95 kg) | LMP 04/14/2019 (Exact Date) | BMI 38.32 kg/m Pregravid BMI: 38.2 Physical Exam Vitals reviewed. Constitutional: She is oriented to person, place, and time. She appears well- developed, well-nourished and well-groomed. She has no deformities. Neck: No tenderness and no mass. No thyroid nodules and no thyromegaly palpated. Cardiovascular: Regular rate and rhythm. No murmur auscultated. Pulmonary/Chest: Breath sounds clear to auscultation. Normal inspiratory effort. Abdominal: Abdomen is soft. No mass palpated. No tenderness present. There is no guarding. Neuro/Psychiatric: She has a normal mood and affect. She is oriented to person, place, and time. Skin: Skin normal. No lesion and no rash present. Tattoos present on bilateral arms, left thigh, right rib, left shoulder and back of right shoulder Breast: Right breast exhibits no mass, no nipple discharge and no tenderness. Left breast exhibits no mass, no nipple discharge and no tenderness. Normal left breast and normal right breast Rectal: normal rectum External genitalia: Normal external genitalia appropriate for age. Normal hair distribution. No labial lesion. Senior Policy Associate present for the exam: Gabriela Jason MA Vagina:Normal vagina. No lesion inspected. No abnormal vaginal discharge found. Cervix: Normal cervix. No lesion. No tenderness and no discharge present. Closed/50/-3 Uterus: Uterus is normal size and non-tender. 8cm Normal uterus Adnexa: Right adnexa without tenderness or mass. Left adnexa without tenderness or mass. Normal leftadnexa and normal right adnexa Anus/perineum: Normal perineum. PHYSICAL: General Exam: HEENT: Normal Thyroid: Normal Lymph Node: Normal Neurological: Normal Abdomen: Normal Skin: Normal Extremities: Normal Pelvic Exam: Vulva: Normal Vagina: Normal Senior Policy Associate present for the exam: Gabriela Jason MA Cervix: Normal Closed/50/-3 Membrane status: Intact Uterus: 8cm Weeks Adnexa: Normal Spines: Average Sacrum: Concave Subpubic Arch: Normal Assessment/Plan Supervision of high risk , antepartum (primary encounter diagnosis) Multiparity Comment: Routine Visit Plan: POCT URINALYSIS W SPECIFIC GRAVITY, POCT TEST, POCT URINALYSIS W SPECIFIC GRAVITY, GLUCOSE 1 HOUR POST PRANDIAL, CBC WITH DIFF, HEPATITIS B SURFACE ANTIGEN, HIV 1/2 AG-AB WITH REFLEX, POCT URINALYSIS W SPECIFIC GRAVITY, WORKUP, BLOOD BANK, RUBELLA SCREEN (MICHELLE) IGG, GALV ONLY - SYPHILIS IGG/IGM, URINE CULTURE, VZV ANTIBODY SCREEN, GC & CHLAMYDIA AMPLIFIED ASSAY, CBC WITH DIFF, HEPATITIS B SURFACE ANTIGEN, HIV 1/2 AG-AB WITH REFLEX, RUBELLA SCREEN (MICHELLE) IGG, GALV ONLY - SYPHILIS IGG/IGM, URINE CULTURE, VZV ANTIBODY SCREEN, GC & CHLAMYDIA AMPLIFIED ASSAY, CBC WITH DIFFERENTIAL, vit 30-jgkd-urmmb-dha (SELECT-OB + DHA) 29 mg iron-1 mg -250 mg combo pack, PAP Smear-Liquid Based Denies zika virus risk, signs and symptoms such as fever,rash,joint pain, conjunctivitis (red eyes), muscle pain, headaches; outside [place] travel to areas affected by zika, and FOB exposure to zika.Educated on use of mosquito repellent. Nausea and vomiting during prior to 22 weeks gestation Comment: patient reports symptoms Plan: proMETHazine 25 mg tablet History of anxiety History of depression Comment: denies any current complaints, patient denies any SI/HU thoughts or feelings. Plan: will continue to monitor History of asthma Comment: history, no current symtoms Plan: will continue to monitor Obesity in BMI 38.0-38.9,adult Comment: BMI: 38.32 Plan: Patient encouraged to limit weight gain and advised to eat healthy diet, fruits, vegetables, increased fiber and water intake and protein low in fat. Encouraged exercise for 30 min everyday; begin regimen with caution to prevent injury. Encouraged to decrease BMI to <25. Return to clinic in 4 weeks via tele health. Discussed treatment options. Medications as ordered. Reviewed patient instructions and provided printed copy. This visit did not involve counseling and coordination that comprised more than 50% of the visit time. GUILLERMINA Diaz 06/08/2019 3:16 PM Izabela Melendez RN - 06/08/2019 2:15 PM CDTPatient is 23 year old female here for current . Patient is . 1) Previous delivery methods Vaginal deliveries 2) Patient is experiencing mild cramping 3) Patient is not experiencing bleeding. 4) LMP: 04/14/2019 5) Last Pap was: N/a Results: N/a 6) Have you had a flu vaccine this season? Yes 7) PPD candidate? no 8) Patient complains of nausea and mild cramping to the lower abdomen. 9) Patient denies history of physical, emotional, or sexual abuse. Patient states she currently feels safe at home. NOB packet given and reviewed with patient. documented in this encounter Plan of Treatment Date Type Specialty Care Team Description 07/09/2019 Telemedicine Visit [facility] Romy England nda R, [employer] [address] [place], [place] [address] [phone] Name Type Priority Associated Diagnoses Order S chedule POCT URINALYSIS W LAB Routine Supervision of high 20 Occurrences starting SPECIFIC GRAVITY risk , 06/08/19 until antepartum 04/03/2020, 1 c ompleted GLUCOSE 1 HOUR POST LAB Routine Supervision of high O rdered: 06/08/2019 PRANDIAL risk , antepartum CBC WITH DIFF LAB Routine Supervision of high Expecte d: 06/08/2019, risk , Expires: antepartum HEPATITIS B SURFACE LAB Routine Supervision of high E xpected: 06/08/2019, ANTIGEN risk , Expires: antepartum HIV 1/2 AG-AB WITH REFLEX LAB Routine Supervision of high Expected: 06/08/2019, risk , Expires: antepartum POCT URINALYSIS W LAB Routine Supervision of high 20 Occurrences starting SPECIFIC GRAVITY risk , 06/08/19 until antepartum 04/03/2020 WORKUP, BLOOD LAB Routine Supervision of hig h Expected: 06/08/2019, BANK risk , Expires: antepartum RUBELLA SCREEN (MICHELLE) LAB Routine Supervision of hig h Expected: 06/08/2019, IGG risk , Expires: antepartum GALV ONLY - SYPHILIS LAB Routine Supervision of high Expected: 06/08/2019, IGG/IGM risk , Expires: antepartum URINE CULTURE LAB Routine Supervision of high Expecte d: 06/08/2019, risk , Expires: antepartum VZV ANTIBODY SCREEN LAB Routine Supervision of high E xpected: 06/08/2019, risk , Expires: antepartum GC & CHLAMYDIA AMPLIFIED LAB Routine Supervision of h igh Expected: 06/08/2019, ASSAY risk , Expires: antepartum CBC WITH DIFFERENTIAL LAB Routine Supervision of high Ordered: 06/08/2019 risk , antepartum PAP Smear-Liquid Based LAB Routine Supervision of erick mireles Expected: 06/08/2019, risk , Expires: antepartum Health Maintenance Due Date Last Done Comments [...] Name Priority Date/Time Associated Diagnosis Comme nts POCT URINALYSIS Routine 06/08/2019 2:25 Supervision of R esults for this PM CDT risk , procedure ar e in antepartum the results section. POCT TEST Routine 06/08/2019 2:24 Supervision of ak gh Results for this PM CDT risk , procedure ar e in antepartum the results section. documented in this encounter Results POCT URINALYSIS W SPECIFIC GRAVITY (06/08/2019 2:25 PM CDT) Pathologist Sig nature POCT U SP GRAV . 1.005 - 1.025 mg/dl POCT PH U 7 5 - 8 mg/dl POCT U LEUK EST 1+ Negative - Negative POCT U NIT negative Negative - Negative POCT U PROT trace Negative - Negative POCT U GLU negative Negative - Negative POCT U KETONE negative Negative - Negative POCT U UROBILI . 0.2 - 1 mg/dl POCT U BILI . Negative - Negative POCT U BLD negative Negative - Negative POCT U COLOR POCT U APPEAR Specimen Urine - URINE, CLEAN CATCH POCT TEST (06/08/2019 2:24 PM CDT) Pathologist Sig nature POCT PREG Positive On board controls acceptable Yes with C Line POCT PREG LOT # POCT PREG TEST DATE Specimen Urine - URINE, CLEAN CATCH documented in this encounter Visit Diagnoses Diagnosis Supervision of high risk , ante - Primary Multiparity Nausea and vomiting during micaela or to 22 weeks gestation History of anxiety Personal history of other mental disorde r History of depression Personal history of other mental disorde r History of asthma Personal history of other diseases of re spiratory system Obesity in Obesity complicating , childbir th, or the puerperium, unspecified as to episode of care or not applicable BMI 38.0-38.9,adult Body Mass Index 38.0-38.9, adult documented in this encounter Insurance Payer Benefit Plan / Subscriber ID Effective Dates Phone Addre ss Type Group [facility] MEDICAID OF xxxxxxxxx 2019-Present [phone] [address] [place] [id number] [place] [address] [place] [address] documented as of this encounter Advance Directives Type Date Recorded 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
--- OUTSIDE RECORDS SUMMARY | 2019-08-17 17:26 | XMS REPORT | Summary of Care ---
:1995 Author Organization [facility] Address [address] [place] [address] Care Team Providers Name Role Phone Doctor Unassigned, Name Insurance Hmo Unavailable Sandro Moran MD Primary Care Provider Reason for Visit Reason Comments Initial Visit Encounter Details Date Type Department Care Team Description 06/08/2019 Initial [facility]- Julia England upervision of high risk , antepartum (Primary Dx); Visit Karen R, ELECTRONIC DEVICE MONITOR Multiparity; [address] [place] [address] Nausea and vomiting during p regnancy prior to 22 weeks gestation; [place], [place] History of anxiety; [phone] [place], [place] History of depression; [phone] History of asthma; [phone] Obesity in ; [phone] BMI 38.0-38.9,a dult (Fax) Allergies Active Allergy [...] Packet 30 Each 6 06/08/2019 Ac tive 95-qsat-qffcn-dha by mouth (SELECT-OB + DHA) daily. 29 mg iron-1 mg -250 mg combo packIndications: Supervision of high risk , antepartum vit Take 1 Packet 30 Each 6 01/20/2018 06/08/2019 D iscontinued 17-vnwh-tcxcy-dha by mouth (SELECT-OB + DHA) daily. 29 [...] as : Liveborn infant, needed for of [place] Constipation. , born in hospital by vaginal [...] IMPRESSION Asthma 03/20/2013 Overview: ICD10 Diagnosis Term Cuff Knitter Utility Estimated Date of Delivery Comments Yes [...] to being tested for COVID 19 in [place], results on chert, negative. She reports +FM [...] file Gets together: Not on file Attends yazdanism service: Not on file Active member of [...] with boyfriend and children. One inside dog. Judaism preference is none. Social History Substance and Sexual Activity Sexual Activity Yes Partners: Male control/protection: None Comment: Last sexual intercourse: 04/05/2019 Genetic Screen Autism / Mental Retardation: No Brissa Disease: No Congenital Heart Defect: No Cystic Fibrosis: No Down Syndrome: No Familial Dysautonomia: No Hemophilia or other Blood Disorders: No [place] Chorea: No Maternal Metabolic Disorder--specify (eg. Type [...] age. Normal hair distribution. No labial lesion. Endoscopy Tech present for the exam: Gabriela Jason MA [...] Normal Pelvic Exam: Vulva: Normal Vagina: Normal Endoscopy Tech present for the exam: Gabriela Jason MA [...] CHLAMYDIA AMPLIFIED ASSAY, CBC WITH DIFFERENTIAL, vit 79-xzbn-krsfg-dha (SELECT-OB + DHA) 29 mg iron-1 mg [...] 07/09/2019 Telemedicine Visit [facility] Romy [place] R, ELECTRONIC DEVICE MONITOR [address] [place], [place] [address] [phone] Name Type Priority Associated Diagnoses Date/Ti me GLUCOSE 1 HOUR POST LAB Routine Supervision of high r isk 06/08/2019 3:16 PM PRANDIAL , antepartum CDT CBC WITH DIFF LAB Routine Supervision of high risk 3:34 PM , antepartum CDT HEPATITIS B SURFACE LAB Routine Supervision of high r isk 06/08/2019 3:34 PM ANTIGEN , antepartum CDT HIV 1/2 AG-AB WITH REFLEX LAB Routine Supervision of high risk 06/08/2019 3:34 PM , antepartum CDT RUBELLA SCREEN (MICHELLE) LAB Routine Supervision of hig h risk 06/08/2019 3:34 PM IGG , antepartum CDT GALV ONLY - SYPHILIS LAB Routine Supervision of high risk 06/08/2019 3:34 PM IGG/IGM , antepartum CDT URINE CULTURE LAB Routine Supervision of high risk 3:35 PM , antepartum CDT VZV ANTIBODY SCREEN LAB Routine Supervision of high r isk 06/08/2019 3:34 PM , antepartum CDT GC & CHLAMYDIA AMPLIFIED LAB Routine Supervision of h igh risk 06/08/2019 3:35 PM ASSAY , antepartum CDT CBC WITH DIFFERENTIAL LAB Routine Supervision of high risk 06/08/2019 3:34 PM , antepartum CDT PAP Smear-Liquid Based LAB Routine Supervision of hig h risk 06/08/2019 3:33 PM , antepartum CDT Name Type Priority Associated Diagnoses Order S chedule POCT URINALYSIS W LAB Routine Supervision of high ris k 20 Occurrences starting SPECIFIC GRAVITY , antepartum until 04/03/2020, 1 c ompleted CBC WITH DIFF LAB Routine Supervision of high risk Ex pected: 06/08/2019, , antepartum s: 06/07/2020 HEPATITIS B SURFACE LAB Routine Supervision of high r isk Expected: 06/08/2019, ANTIGEN , antepartum s: 06/07/2020 HIV 1/2 AG-AB WITH LAB Routine Supervision of high ri sk Expected: 06/08/2019, REFLEX , antepartum s: 06/07/2020 POCT URINALYSIS W LAB Routine Supervision of high ris k 20 Occurrences starting SPECIFIC GRAVITY , antepartum until 04/03/2020 WORKUP, BLOOD LAB Routine Supervision of hig h risk Expected: 06/08/2019, BANK , antepartum s: 06/07/2020 RUBELLA SCREEN (MICHELLE) LAB Routine Supervision of hig h risk Expected: 06/08/2019, IGG , antepartum s: 06/07/2020 GALV ONLY - SYPHILIS LAB Routine Supervision of high risk Expected: 06/08/2019, IGG/IGM , antepartum s: 06/07/2020 URINE CULTURE LAB Routine Supervision of high risk Ex pected: 06/08/2019, , antepartum s: 06/07/2020 VZV ANTIBODY SCREEN LAB Routine Supervision of high r isk Expected: 06/08/2019, , antepartum s: 06/07/2020 GC & CHLAMYDIA LAB Routine Supervision of high risk E xpected: 06/08/2019, AMPLIFIED ASSAY , antepartum Exp ires: 06/07/2020 PAP Smear-Liquid Based LAB Routine Supervision of hig h risk Expected: 06/08/2019, , antepartum s: 06/07/2020 Health Maintenance Due Date Last Done Comments [...] POCT URINALYSIS Routine 06/08/2019 2:25 Supervision of high R esults for this PM CDT risk , procedure ar e in antepartum the results section. POCT TEST Routine 06/08/2019 2:24 Supervision of hi gh Results for this PM CDT risk [...] Effective Dates Phone Addre ss Type Group [facility] MEDICAID OF xxxxxxxxx 2019-Present [phone] [address] Medicaid [place] [id number] [place] [phone] [place] [address] documented as of this encounter Advance Directives Type Date Recorded Patient Bulldozer/Loader/Compactor/Scraper Explanati on Advance Directives and Living Will Power of Purchasing Manager Name Relationship Healthcare Agent Relationship Co mmunication Lis Wheeler Mother Primary healthcare agent [email or web address]
--- OUTSIDE RECORDS SUMMARY | 2019-08-17 17:26 | XMS REPORT | Summary of Care ---
:1995 Author Organization [facility] Address [address] [place] [address] Care Team Providers Name Role Phone Doctor Unassigned, Name Insurance Hmo Unavailable Sandro Moran MD Primary Care Provider Reason for Visit Reason Comments Initial Visit Encounter Details Date Type Department Care Team Description 06/08/2019 Initial [facility]CH[facility]- Julia England upervision of high risk , antepartum (Primary Dx); Visit Karen R, OIL GAUGER Multiparity; [address] [place] [address] Nausea and vomiting during p regnancy prior to 22 weeks gestation; [place], [place] History of anxiety; [address] [place], [place] History of depression; [phone] History of asthma; [phone] Obesity in ; [phone] BMI 38.0-38.9,a dult (Fax) Allergies Active Allergy [...] Packet 30 Each 6 06/08/2019 Ac tive 26-emxn-ptdlu-dha by mouth (SELECT-OB + DHA) daily. 29 mg iron-1 mg -250 mg combo packIndications: Supervision of high risk , antepartum vit Take 1 Packet 30 Each 6 01/20/2018 06/08/2019 D iscontinued 73-nyct-xefra-dha by mouth (SELECT-OB + DHA) daily. 29 [...] IMPRESSION Asthma 03/20/2013 Overview: ICD10 Diagnosis Term Leather Sprayer Utility Estimated Date of Delivery Comments Yes [...] to being tested for COVID 19 in [place], results on chert, negative. She reports +FM [...] file Gets together: Not on file Attends restoration service: Not on file Active member of [...] with boyfriend and children. One inside dog. Islam preference is none. Social History Substance and Sexual Activity Sexual Activity Yes Partners: Male control/protection: None Comment: Last sexual intercourse: 04/05/2019 Genetic Screen Autism / Mental Retardation: No Brissa Disease: No Congenital Heart Defect: No Cystic Fibrosis: No Down Syndrome: No Familial Dysautonomia: No Hemophilia or other Blood Disorders: No [place] Chorea: No Maternal Metabolic Disorder--specify (eg. Type [...] age. Normal hair distribution. No labial lesion. Filter Changing Technician present for the exam: Gabriela Jason MA [...] Normal Pelvic Exam: Vulva: Normal Vagina: Normal Filter Changing Technician present for the exam: Gabriela Jason MA [...] CHLAMYDIA AMPLIFIED ASSAY, CBC WITH DIFFERENTIAL, vit 08-hxvt-sclvn-dha (SELECT-OB + DHA) 29 mg iron-1 mg [...] than 50% of the visit time. GUILLERMINA Daiz 06/08/2019 3:16 PM Izabela Melendez RN - [...] Visit [facility] Romy [place] nda R, OIL GAUGER [address] [place], [place] [address] [phone] Name Type Priority Associated Diagnoses Date/Ti me PAP Smear-Liquid LAB Routine Supervision of high risk 06/08/2019 3:33 PM CDT Based , antepartum Name Type Priority Associated Diagnoses Order S [...] PAP Smear-Liquid Based LAB Routine Supervision of [facility] Expected: 06/08/2019, risk , Expires: antepartum Health [...] POCT TEST Routine 06/08/2019 2:24 Supervision of nj gh Results for this PM CDT risk [...] Effective Dates Phone Addre ss Type Group [facility] MEDICAID OF xxxxxxxxx 2019-Present [phone] [address] Medicaid [place] [id number] [place] [phone] [place] [address] documented as of this encounter Advance Directives Type Date Recorded Patient Pole Shaver Explanati on Advance Directives and Living Will Power of Die Holder Name Relationship Healthcare Agent Relationship Co mmunication Lis Wheeler Mother Primary healthcare agent ja
--- OUTSIDE RECORDS SUMMARY | 2019-08-17 17:27 | XMS REPORT | Summary of Care ---
:1997 Author Organization [facility] Address [address] [place] [address] Care Team Providers Name Role Phone Doctor Unassigned, Name Insurance Hmo Unavailable Sandro Moran MD Primary Care Provider Reason for Visit Reason Comments Initial Visit Encounter Details Date Type Department Care Team Description 06/08/2019 Initial [facility]CHP- Julia England upervision of high risk , antepartum (Primary Dx); Visit Karen R, WEAVER NARROW FABRICS Multiparity; [address] [place] [address] Nausea and vomiting during p regnancy prior to 22 weeks gestation; [place], [place] History of anxiety; [phone] [place], [place] History of depression; [phone] History of asthma; [phone] Obesity in ; [phone] BMI 38.0-38.9,a dult (Fax) Allergies Active Allergy [...] Packet 30 Each 6 06/08/2019 Ac tive 18-zxec-zevbu-dha by mouth (SELECT-OB + DHA) daily. 29 mg iron-1 mg -250 mg combo packIndications: Supervision of high risk , antepartum vit Take 1 Packet 30 Each 6 01/20/2018 06/08/2019 D iscontinued 53-ltdr-lvkwo-dha by mouth (SELECT-OB + DHA) daily. 29 [...] IMPRESSION Asthma 03/20/2013 Overview: ICD10 Diagnosis Term Interactive Media Project Manager Utility Estimated Date of Delivery Comments Yes [...] to being tested for COVID 19 in [place], results on chert, negative. She reports +FM [...] file Gets together: Not on file Attends baptist service: Not on file Active member of [...] with boyfriend and children. One inside dog. Methodist preference is none. Social History Substance and Sexual Activity Sexual Activity Yes Partners: Male control/protection: None Comment: Last sexual intercourse: 04/05/2019 Genetic Screen Autism / Mental Retardation: No Brissa Disease: No Congenital Heart Defect: No Cystic Fibrosis: No Down Syndrome: No Familial Dysautonomia: No Hemophilia or other Blood Disorders: No [place] Chorea: No Maternal Metabolic Disorder--specify (eg. Type [...] age. Normal hair distribution. No labial lesion. Jailer/Training Officer present for the exam: Gabriela Jason MA [...] Normal Pelvic Exam: Vulva: Normal Vagina: Normal Jailer/Training Officer present for the exam: Gabriela Jason MA [...] CHLAMYDIA AMPLIFIED ASSAY, CBC WITH DIFFERENTIAL, vit 12-zseh-survm-dha (SELECT-OB + DHA) 29 mg iron-1 mg [...] Telemedicine Visit [facility] Romy [place] R, WEAVER NARROW FABRICS [address] [place], [place] [address] [phone] Name Type Priority Associated Diagnoses Date/Ti me [...] Effective Dates Phone Addre ss Type Group [facility] MEDICAID OF xxxxxxxxx 2019-Present [phone] [address] Medicaid [place] [id number] [place] [phone] [place] [address] documented as of this encounter Advance Directives Type Date Recorded Patient Machine Overhauler Explanati on Advance Directives and Living Will Power of Asset Protection Lead Name Relationship Healthcare Agent Relationship Co mmunication Lis Wheeler Mother Primary healthcare agent [email or web address]
--- OUTSIDE RECORDS SUMMARY | 2019-08-17 17:27 | XMS REPORT | Summary of Care ---
:1997 Author Organization [facility] Address [address] [place] [address] Care Team Providers Name Role Phone Doctor Unassigned, Name Insurance Hmo Unavailable Sandro Moran MD Primary Care Provider Reason for Visit Reason Comments Abnormal Lab ASCUS Pap Smear Encounter Details Date Type Department Care Team Description 06/11/2019 [facility] [place] Ab normal Lab (ASCUS [place] DIRECTOR FUNDRAISING Pap Smear) [address] [facility] [address] [place], [place] [phone] Allergies Active Allergy Reactions Severity Noted Date Comments Egg Unknown - See comments 03/20/2013 Nasal congestion and stuffy nose Milk Other - See comments 03/20/2013 Nasal c ongestion and stuffy nose documented as of this encounter (statuses as of 06/11/2019) Medications Medication Sig Dispensed Refills Start Date End Date Status PROAIR HFA 90 INHALE 2 PUFFS 1 08/10/2015 Active mcg/actuation inhaler EVERY 4-6 HOURSAS NEEDED proMETHazine 25 mg Take 1 tablet by 30 tablet 1 06/08/2019 Active tabletIndications: mouth every 4 Nausea and vomiting (four) hours as during prior needed for Nausea to 22 weeks gestation and Vomiting (N/V). vit Take 1 Packet by 30 Each 6 06/08/2019 Active 99-knov-evvey-dha mouth daily. (SELECT-OB + DHA) 29 mg iron-1 mg -250 mg combo packIndications: Supervision of high risk , antepartum documented as of this encounter (statuses as of 06/11/2019) Active Problems Problem Noted Date Atypical squamous cell changes of undetermined signifi cance (ASCUS) on 06/11/2019 vaginal cytology Overview: Repeat Pap Smear in 2020. History of anxiety 06/08/2019 History of depression 06/08/2019 History of asthma 06/08/2019 BMI 38.0-38.9,adult 06/08/2019 39 weeks gestation of 09/01/2018 Insufficient care in third trimester 07/02/19 19 Right arm weakness 05/29/2018 Morbid obesity with body mass index of 40.0-49.9 05/29 Depression, unspecified depression type 02/19/2018 Rubella non-immune status, antepartum 02/19/2018 Overview: Address in (06/09/2019 Maternal varicella, non-immune 02/19/2018 Overview: Address in [...] IMPRESSION Asthma 03/20/2013 Overview: ICD10 Diagnosis Term Managing Cognitive Engineer Utility Estimated Date of Delivery Comments Yes 01/19/2020 Based on last menstr ual period of 04/14/2019 (Exact Date) documented as of this encounter (statuses as of 06/11/2019) Resolved Problems Problem Noted Date Resolved Date [...] as of this encounter (statuses as of 06/11/2019) Immunizations Name Administration Dates Next Due HPV9 [...] Travel End No recent travel history available. COVID-19 Exposure Response Date Recorded In the last month, have you been in contact with No / Unsure 06/08/2019 2:14 PM CDT someone who was confirmed or suspected to have Coronavirus / COVID-19? documented as of this encounter Last Filed Vital Signs Not on filedocumented in this encounter Plan of Treatment Date Type Specialty Care Team Description 07/09/2019 Telemedicine Visit OB [facility] [place] Romy nda R, DIRECTOR FUNDRAISING [address] [place] [address] [phone] Health Maintenance Due Date Last Done Comments VARICELLA VACCINES (1 of 2 - 1998 2-dose childhood series) PNEUMOCOCCAL 0-64 YEARS 07/12/2003 COMBINED SERIES (1 of 1 - PPSV23) MENINGOCOCCAL B VACCINES (1 07/12/2007 of 2 - Risk Bexsero 2-dose series) WELL CARE VISIT: 12-21 YEARS 2009 (yearly) HPV VACCINES (2 - Female 02/14/2017 01/17/2017 3-dose series) PAP SMEAR 2018 INFLUENZA VACCINE (#1) 2018 12/10/2017 CHLAMYDIA SCREENING 06/07/2020 06/08/2019, 08/18/2018, 07/30/2018, Additional history exists DTaP,Tdap,and Td Vaccines (2 07/01/2028 07/01/2018 - Td) MENINGOCOCCAL VACCINE Aged Out No longer eligible based on patient 's age to complete this topic documented as of this encounter Results Not on filedocumented in this encounter Insurance Payer Benefit Plan / Subscriber ID Effective Dates Phone Addre ss Type Group [facility] MEDICAID OF xxxxxxxxx 2019-Present [phone] [address] Medicaid [place] [id number] [place] [phone] documented as of this encounter Advance Directives Type Date Recorded Patient Car Pilot Explanati on Advance Directives and Living Will Power of Clinical Documentation Consultant Name Relationship Healthcare Agent Relationship Co mmunication Lis Wheeler Mother Primary healthcare agent ja [email or web address]
--- OUTSIDE RECORDS SUMMARY | 2019-08-17 17:28 | XMS REPORT | Summary of Care ---
:1997 Author Organization [facility] Address [address] [place] [address] Care Team Providers Name Role Phone Doctor Unassigned, Name Insurance Hmo Unavailable Sandro Moran MD Primary Care Provider Reason for Visit Reason Comments Abnormal Lab ASCUS Pap Smear Encounter Details Date Type Department Care Team Description [facility] [place] [facility] (ASCUS [place] PLUMBING INSPECTOR Pap Smear) [address] [facility] [place] [address] [place], [place] [phone] Allergies Active Allergy Reactions Severity Noted Date Comments Egg Unknown - See comments 03/20/2013 Nasal congestion and stuffy nose Milk Other - See comments 03/20/2013 Nasal c ongestion and stuffy nose documented as of this encounter (statuses as of 06/12/2019) Medications Medication Sig Dispensed Refills Start Date [...] Packet by 30 Each 6 06/08/2019 Active 14-fzdm-gslgq-dha mouth daily. (SELECT-OB + DHA) 29 mg iron-1 mg -250 mg combo packIndications: Supervision of high risk , antepartum documented as of this encounter (statuses as of 06/12/2019) Active Problems Problem Noted Date Atypical squamous [...] IMPRESSION Asthma 03/20/2013 Overview: ICD10 Diagnosis Term Cage Loader Utility Estimated Date of Delivery Comments Yes 01/19/2020 Based on last menstr ual period of 04/14/2019 (Exact Date) documented as of this encounter (statuses as of 06/12/2019) Resolved Problems Problem Noted Date Resolved Date [...] as of this encounter (statuses as of 06/12/2019) Immunizations Name Administration Dates Next Due HPV9 [...] Care Team Description 07/09/2019 Telemedicine Visit OB [facility] [place] Romy nda R, PLUMBING INSPECTOR [address] [place] [address] [phone] Health Maintenance Due Date Last Done Comments VARICELLA VACCINES (1 of 2 - 1998 2-dose childhood series) PNEUMOCOCCAL 0-64 YEARS 07/12/2003 COMBINED SERIES (1 of 1 - PPSV23) MENINGOCOCCAL B VACCINES (1 07/12/2007 of 2 - Risk Bexsero 2-dose series) WELL CARE VISIT: 12-21 YEARS 2009 (yearly) HPV VACCINES (2 - Female 02/14/2017 01/17/2017 3-dose series) INFLUENZA VACCINE (#1) 2018 12/10/2017 CHLAMYDIA SCREENING 06/07/2020 06/08/2019, 08/18/2018, 07/30/2018, Additional history exists PAP SMEAR 06/07/2022 06/08/2019 DTaP,Tdap,and Td Vaccines (2 07/01/2028 07/01/2018 - Td) MENINGOCOCCAL VACCINE Aged Out No longer eligible based on patient 's age to complete this topic documented as of this encounter Results Not on filedocumented in this encounter Insurance Payer Benefit Plan / Subscriber ID Effective Dates Phone Addre ss Type Group [facility] MEDICAID OF xxxxxxxxx 2019-Present [phone] [address] Medicaid [place] [id number] [place] [phone] documented as of this encounter Advance Directives Type Date Recorded Patient Investigative Writer Explanati on Advance Directives and Living Will Power of Mis Director Name Relationship Healthcare Agent Relationship Co mmunication Lis Wheeler Mother Primary healthcare agent [email or web address]
--- OUTSIDE RECORDS SUMMARY | 2019-08-17 17:28 | XMS REPORT | Summary of Care ---
:[address] Author [address] [facility] Address [address] [place] [address] Care Team Providers Name Role Phone Doctor Unassigned, Name Insurance Hmo Unavailable Sandro Moran MD Primary Care Provider Reason for Visit Reason Comments Abnormal Lab ASCUS Pap Smear Encounter Details Date Type Department Care Team Description [facility] [place] Ab normal Lab (ASCUS [place] TOOL AND DIE ASSEMBLER Pap Smear) [address] [facility] [address] [place], [place] [phone] Allergies Active Allergy Reactions Severity Noted Date [...] Packet by 30 Each 6 06/08/2019 Active 70-uskc-uhbvt-dha mouth daily. (SELECT-OB + DHA) 29 mg [...] IMPRESSION Asthma 03/20/2013 Overview: ICD10 Diagnosis Term Upholsterer Helper Utility Estimated Date of Delivery Comments Yes [...] Care Team Description 07/09/2019 Telemedicine Visit OB [facility] [place] Romy nda R, TOOL AND DIE ASSEMBLER [address] [place] [address] [phone] Health Maintenance Due Date Last Done Comments [...] Type Group [facility] MEDICAID OF xxxxxxxxx 2019-Present [phone] [address] Medicaid [place] [id number] [place] [phone] documented as of this encounter Advance Directives Type Date Recorded Patient Dumpcart Driver Explanati on Advance Directives and Living Will Power of Funeral Planning Counselor Name Relationship Healthcare Agent Relationship Co mmunication Lis Wheeler Mother Primary healthcare agent [email or web address]
--- OUTSIDE RECORDS SUMMARY | 2019-08-17 17:28 | XMS REPORT | Summary of Care ---
:1997 Author Organization [facility] Address [address] [place] [address] Care Team Providers Name Role Phone Doctor Unassigned, Name Insurance Hmo Unavailable Sandro Moran MD Primary Care Provider Reason for Visit Reason Comments Abnormal Lab ASCUS Pap Smear Encounter Details Date Type Department Care Team Description [facility] [place] [facility] (ASCUS [place] MOUNTER AUTOMATIC Pap Smear) [address] [facility] [address] [place], [place] [phone] Allergies Active Allergy Reactions Severity Noted Date [...] Packet by 30 Each 6 06/08/2019 Active 59-qkox-hcspz-dha mouth daily. (SELECT-OB + DHA) 29 mg [...] IMPRESSION Asthma 03/20/2013 Overview: ICD10 Diagnosis Term Opto Mechanical Engineer Utility Estimated Date of Delivery Comments [...] Care Team Description 07/09/2019 Telemedicine Visit OB [facility] [place] Romy nda R, MOUNTER AUTOMATIC [address] [place] [address] [phone] Health Maintenance Due Date Last Done Comments [...] Type Group [facility] MEDICAID OF xxxxxxxxx 2019-Present [phone] [address] Medicaid [place] [id number] [place] [phone] documented as of this encounter Advance Directives Type Date Recorded Patient Strap Maker Explanati on Advance Directives and Living Will Power of Provider Network Analyst Name Relationship Healthcare Agent Relationship Co mmunication Lis Wheeler Mother Primary healthcare agent [email or web address]
--- OUTSIDE RECORDS SUMMARY | 2019-08-17 17:29 | XMS REPORT | Summary of Care ---
:1995 Author Organization [facility] Address [address] [place] [address] Care Team Providers Name Role Phone Doctor Unassigned, Name Insurance Hmo Unavailable Landy England ROOMS DIRECTOR Primary Care Provider Reason for Visit Reason Comments Results returning nurses call- recei buster letter stating to call Encounter Details Date Type Department Care Team Description 06/22/2019 Telephone [facility]- Julia England Re sults (returning [facility] nurses call- received [address] [employer] letter stating to call [place], [place] [address] ) [phone] Allergies Active Allergy Reactions Severity Noted Date Comments Egg Unknown - See comments 03/20/2013 Nasal congestion and stuffy nose Milk Other - See comments 03/20/2013 Nasal c ongestion and stuffy nose documented as of this encounter (statuses as of 06/22/2019) Medications Medication Sig Dispensed Refills Start Date [...] Packet by 30 Each 6 06/08/2019 Active 53-qncd-qfrpi-dha mouth daily. (SELECT-OB + DHA) 29 mg iron-1 mg -250 mg combo packIndications: Supervision of high risk , antepartum documented as of this encounter (statuses as of 06/22/2019) Active Problems Problem Noted Date Atypical squamous [...] IMPRESSION Asthma 03/20/2013 Overview: ICD10 Diagnosis Term Aco Coordinator Utility Estimated Date of Delivery Comments Yes 01/19/2020 Based on last menstr ual period of 04/14/2019 (Exact Date) documented as of this encounter (statuses as of 06/22/2019) Resolved Problems Problem Noted Date Resolved Date [...] as of this encounter (statuses as of 06/22/2019) Immunizations Name Administration Dates Next Due HPV9 [...] Care Team Description 07/09/2019 Telemedicine Visit [facility] Romy England nda R, ROOMS DIRECTOR [address] [address] 15 [phone] Health Maintenance Due Date Last Done Comments VARICELLA VACCINES (1 of 2 - 1998 2-dose childhood series) PNEUMOCOCCAL 0-64 YEARS 07/12/2003 COMBINED SERIES (1 of 1 - PPSV23) MENINGOCOCCAL B VACCINES (1 07/12/2007 of 2 - Risk Bexsero 2-dose series) WELL CARE VISIT: 12-21 YEARS 2009 (yearly) HPV VACCINES (2 - Female 02/14/2017 01/17/2017 3-dose series) INFLUENZA VACCINE (Season 10/20/2019 12/10/2017 Ended) CHLAMYDIA SCREENING 06/07/2020 06/08/2019, 08/18/2018, 07/30/2018, Additional [...] Type Group TMHP MEDICAID OF xxxxxxxxx 2019-Present [phone] [address] Medicaid [place] [id number] [place] [id number] documented as of this encounter Advance Directives Type Date Recorded Patient Cath Lab Tech Explanati on Advance Directives and Living Will Power of Insurance Account Assistant Name Relationship Healthcare Agent Relationship Co mmunication Lis Wheeler Mother Primary healthcare agent ja [email or web address]
--- OUTSIDE RECORDS SUMMARY | 2019-08-17 17:29 | XMS REPORT | Summary of Care ---
:1995 Author Organization [facility] Address [address] [place] [address] Care Team Providers Name Role Phone Doctor Unassigned, Name Insurance Hmo Unavailable Landy England Primary Care Provider Reason for Visit Reason Comments Assessment Encounter Details Date Type Department Care Team Description [facility], GUILLERMINA Assessment [address] [facility] [address] [place] [address] [address] [place] [address] [phone] Allergies Active Allergy Reactions Severity Noted Date Comments Egg Unknown - See comments 03/20/2013 Nasal congestion and stuffy nose Milk Other - See comments 03/20/2013 Nasal c ongestion and stuffy nose documented as of this encounter (statuses as of 07/06/2019) Medications Medication Sig Dispensed Refills Start Date [...] Packet by 30 Each 6 06/08/2019 Active 60-jbij-lnqjy-dha mouth daily. (SELECT-OB + DHA) 29 mg iron-1 mg -250 mg combo packIndications: Supervision of high risk , antepartum documented as of this encounter (statuses as of 07/06/2019) Active Problems Problem Noted Date Atypical squamous [...] IMPRESSION Asthma 03/20/2013 Overview: ICD10 Diagnosis Term Grounding Engineer Utility Estimated Date of Delivery Comments Yes 01/19/2020 Based on last menstr ual period of 04/14/2019 (Exact Date) documented as of this encounter (statuses as of 07/06/2019) Resolved Problems Problem Noted Date Resolved Date [...] as of this encounter (statuses as of 07/06/2019) Immunizations Name Administration Dates Next Due HPV9 [...] Care Team Description 07/09/2019 Telemedicine Visit OB [facility] Romy England nda R, ECG TECHNICIAN [address] [id number] 15 [phone] Health Maintenance Due Date Last Done Comments [...] Payer Benefit Plan / Subscriber ID Effective Phone Address T ype Group Dates [facility] MEDICAID OF xxxxxxxxx 2019-Prese [phone] Med icaid [facility] [phone] [place] [address] [facility] xxxxxxxxx 2019-Prese [place] dicaid [facility] HEALTH PLAN - MANAGED MEDICAID documented as of this encounter Advance Directives Type Date Recorded Patient Maths Tutor Explanati on Advance Directives and Living Will Power of Carpet Sewer Name Relationship Healthcare Agent Relationship Co mmunication Lis Wheeler Mother Primary healthcare agent ja [email or web address]
--- OUTSIDE RECORDS SUMMARY | 2019-08-17 17:29 | XMS REPORT | Summary of Care ---
:1995 Author Organization [facility] Address [address] [place] [address] Care Team Providers Name Role Phone Doctor Unassigned, Name Insurance Hmo Unavailable Landy England Primary Care Provider Encounter Details Date Type Department Care Team Description 06/25/2019 Orders Only [facility] Doctor Unassigned, No [address] [facility] [place] [address] [address] [place] [address] Allergies Active Allergy Reactions Severity Noted Date Comments Egg Unknown - See comments 03/20/2013 Nasal congestion and stuffy nose Milk Other - See comments 03/20/2013 Nasal c ongestion and stuffy nose documented as of this encounter (statuses as of 06/25/2019) Medications Medication Sig Dispensed Refills Start Date [...] Packet by 30 Each 6 06/08/2019 Active 87-gkpt-dulrz-dha mouth daily. (SELECT-OB + DHA) 29 mg iron-1 mg -250 mg combo packIndications: Supervision of high risk , antepartum documented as of this encounter (statuses as of 06/25/2019) Active Problems Problem Noted Date Atypical squamous [...] IMPRESSION Asthma 03/20/2013 Overview: ICD10 Diagnosis Term Wire Worker Utility Estimated Date of Delivery Comments Yes 01/19/2020 Based on last menstr ual period of 04/14/2019 (Exact Date) documented as of this encounter (statuses as of 06/25/2019) Resolved Problems Problem Noted Date Resolved Date Liveborn , of [place] , born in [...] as of this encounter (statuses as of 06/25/2019) Immunizations Name Administration Dates Next Due HPV9 [...] Care Team Description 07/09/2019 Telemedicine Visit OB [facility] Romy England nda R, BRIDGE WORKER APPRENTICE [address] [address] [phone] Health Maintenance Due Date Last Done Comments [...] Name Priority Date/Time Associated Diagnosis Comme nts MEDICAL Routine 06/25/2019 12:01 AM CDT RELEASE/CLEARANCE FORMS documented in this encounter Results Not on filedocumented in this encounter Insurance Payer Benefit Plan / Subscriber ID Effective Dates Phone Addre ss Type Group TMHP MEDICAID OF xxxxxxxxx 2019-Present [phone] [address] Medicaid [place] [id number] [place] [phone] documented as of this encounter Advance Directives Type Date Recorded Patient Machinist Tool And Die Explanati on Advance Directives and Living Will Power of Math And Science Division Chair Name Relationship Healthcare Agent Relationship Co mmunication Lis Wheeler Mother Primary healthcare agent ja [email or web address]
--- OUTSIDE RECORDS SUMMARY | 2019-08-17 17:29 | XMS REPORT | Summary of Care ---
:1995 Author Organization [facility] Address [address] [place] [address] Care Team Providers Name Role Phone Doctor Unassigned, Name Insurance Hmo Unavailable Landy England Primary Care Provider Encounter Details Date Type Department Care Team Description 06/22/2019 Letter (Out) [facility]- Romy England R, [facility] [address] [facility] [address] [place] [address] [place] [address] Allergies Active Allergy Reactions Severity Noted Date [...] Packet by 30 Each 6 06/08/2019 Active 10-glub-yjgxe-dha mouth daily. (SELECT-OB + DHA) 29 mg [...] IMPRESSION Asthma 03/20/2013 Overview: ICD10 Diagnosis Term Fretted Instrument Maker Hand Utility Estimated Date of Delivery Comments Yes [...] [facility] Romy England R, VINYL TOP INSTALLER [address] [address] 15 [phone] Health Maintenance Due Date Last Done Comments [...] Effective Dates Phone Addre ss Type Group [facility] MEDICAID OF xxxxxxxxx 2019-Present [phone] [address] Medicaid [place] [id number] [place] [phone] documented as of this encounter Advance Directives Type Date Recorded Patient Precision Dyer Explanati on Advance Directives and Living Will Power of Quill Picking Machine Operator Name Relationship Healthcare Agent Relationship Co mmunication Lis Summer Mother Primary healthcare agent ja [email or web address]
--- OUTSIDE RECORDS SUMMARY | 2019-08-17 17:30 | XMS REPORT | Summary of Care ---
:1995 Author Organization [facility] Address [address] [place] [address] Care Team Providers Name Role Phone Doctor Unassigned, Name Insurance Hmo Unavailable Landy England Primary Care Provider Reason for Visit Reason Comments Care Encounter Details Date Type Department Care Team Description 08/06/2019 Routine [facility]- Julia England upervision of high risk , antepartum (Primary Dx); Visit GUILLERMINA Sal Multiparity; [address] Nausea an d vomiting during prior to 22 weeks gestation; [address] [place] [address] [phone] Allergies Active Allergy Reactions Severity Noted Date Comments Egg Unknown - See comments 03/20/2013 Nasal congestion and stuffy nose Milk Other - See comments 03/20/2013 Nasal c ongestion and stuffy nose documented as of this encounter (statuses as of 08/06/2019) Medications Medication Sig Dispensed Refills Start Date [...] Packet by 30 Each 6 06/08/2019 Active 33-droj-fvzpt-dha mouth daily. 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 History of anxiety 06/08/2019 History of depression 06/08/2019 History of asthma 06/08/2019 BMI 38.0-38.9,adult 06/08/2019 39 weeks gestation of 09/01/2018 Insufficient care in third trimester 07/02/19 Right arm weakness 05/29/2018 Morbid obesity with [...] IMPRESSION Asthma 03/20/2013 Overview: ICD10 Diagnosis Term Activity Aide Utility Estimated Date of Delivery Comments Yes 01/19/2020 Based on last menstr ual period of 04/14/2019 (Exact Date) documented as of this encounter (statuses as of 08/06/2019) Resolved Problems Problem Noted Date Resolved Date [...] as of this encounter (statuses as of 08/06/2019) Immunizations Name Administration Dates Next Due HPV9 01/17/2017 Influenza Virus Vaccine 12/10/2017 TDAP 07/01/2018 documented as of this encounter Social [...] been in contact with No / Unsure 08/06/2019 2:39 PM CDT someone who was confirmed or suspected to have Coronavirus / COVID-19? documented as of this encounter Last Filed Vital Signs Vital Sign Reading Time Taken Comments Blood Pressure 127/70 08/06/2019 2:39 PM CDT Pulse 98 08/06/2019 2:39 PM CDT Temperature 36.8 C (98.2 F) 08/06/2019 2:39 PM CDT Respiratory Rate 16 08/06/2019 2:39 PM CDT Oxygen Saturation - - Inhaled Oxygen Concentration - - Weight 91.4 kg (201 lb 7 oz) 08/06/2019 2:39 PM CDT Height 157.5 cm (5' 2") 08/06/2019 2:39 PM CDT Body Mass Index 36.84 08/06/2019 2:39 PM CDT documented in this encounter Progress Notes Julia England, GUILLERMINA - 08/06/2019 2:30 PM CDT Chief complaint: Chief Complaint Patient presents with Care HPI CC: Follow Up Visit Britney Umana is a 24 year old, , /White female. Patient's last menstrual period was 04/14/2019 (exact date). She is 16w2d with an intrauterine . Her estimated dateof delivery is 01/19/2020, by Last Menstrual Period. She has no complaints today. She reports +FM and denies contractions, LOF and bleeding today. Patient denies current or past physical, sexual or emotional abuse. Histories OB History Para Term AB Living [...] Last attempt to quit: 01/06/2018 Years since quittin.5 Smokeless tobacco: Never Used Tobacco comment: 1-2 [...] file Gets together: Not on file Attends religion service: Not on file Active member of [...] with boyfriend and children. One inside dog. Holiness preference is none. Social History Substance and Sexual Activity Sexual Activity Yes Partners: Male control/protection: None Comment: Last sexual intercourse: 04/05/2019 Labs Labs are pending. Radiology Radiology pending. Allergies Britney is allergic to eggs [egg] and milk. Medications Britney has a current medication list which includes the following prescription(s): vit 91-djaa-dqkse-dha, promethazine, and proair hfa. Review of Systems Eyes: Negative for visual disturbance. Cardiovascular: Negative for leg swelling. Gastrointestinal: Negative for abdominal pain, nausea and vomiting. Genitourinary: Negative for vaginal bleeding, vaginal discharge and pelvic pain. Neurological: Negative for headaches. BP 127/70 (BP Location: Right arm, Patient Position: Sitting, BP CUFF SIZE: Adult Medium) | Pulse 98 | Temp 36.8 C (98.2 F) (Oral) | Resp 16 | Ht 5' 2" (1.575 m) | Wt 201 lb 7 oz (91.4 kg) | LMP 04/14/2019 (Exact Date) | BMI 36.84 kg/m Pregravid BMI: 38.2 Physical Exam PHYSICAL: General Exam: Neurological: Normal Abdomen: Normal Extremities: Normal Pelvic Exam: Uterus: 16cm Weeks Assessment/Plan Supervision of high risk , antepartum (primary encounter diagnosis) Multiparity Comment: Routine Visit Plan: POCT URINALYSIS W SPECIFIC GRAVITY Denies zika virus risk, signs and symptoms such as fever,rash,joint pain, conjunctivitis (red eyes), muscle pain, headaches; outside [place] travel to areas affected by zika, and FOB exposure to zika.Educated on use of mosquito repellent. Covid x12 screening done, screening results are negative. Nausea and vomiting during prior to 22 weeks gestation Comment: improving Plan: will continue to monitor Obesity in Comment: BMI: 36.84 Plan: Patient encouraged to limit weight gain and advised to eat healthy diet, fruits, vegetables, increased fiber and water intake and protein low in fat. Encouraged exercise for 30 min everyday; begin regimen with caution to prevent injury. Encouraged to decrease BMI to <25. Return to clinic in 4 weeks. Discussed treatment options. Medications as ordered. Reviewed patient instructions and provided printed copy. This visit did not involve counseling and coordination that comprised more than 50% of the visit time. GUILLERMINA Diaz 08/06/2019 2:50 PM documented in this encounter Plan of Treatment Date Type Specialty Care Team Description 09/01/2019 Initial Visit Obstetrics & Moran, yDan Jo MD Gynecology [address] [place] [address] [address] [address] 15 [phone] 09/02/2019 Staff Veterinarian Visit Maternal Medicine Name Type Priority Associated Diagnoses Order S chedule QUAD SCRN LAB Routine Supervision of high risk Exp ected: 08/06/2019, , antepartum s: 08/05/2020 Health Maintenance Due Date Last Done Comments VARICELLA VACCINES (1 of 2 - 1998 2-dose childhood series) PNEUMOCOCCAL 0-64 YEARS 07/12/2003 COMBINED SERIES (1 of 1 - PPSV23) MENINGOCOCCAL B VACCINES (1 07/12/2007 of 2 - Risk Bexsero 2-dose series) HPV VACCINES (2 - Female 02/14/2017 01/17/2017 3-dose series) INFLUENZA VACCINE (Season 10/20/2019 12/10/2017 Ended) CHLAMYDIA SCREENING 06/07/2020 06/08/2019, 08/18/2018, 07/30/2018, Additional history exists Depression Screening 08/05/2020 08/06/2019 PAP SMEAR 06/07/2022 06/08/2019 DTaP,Tdap,and Td Vaccines (2 07/01/2028 07/01/2018 - Td) MENINGOCOCCAL VACCINE Aged Out No longer eligible based on patient 's age to complete this topic documented as of this encounter Procedures Procedure Name Priority Date/Time Associated Diagnosis Comme nts POCT URINALYSIS Routine 08/06/2019 2:40 PM Supervision of erick mireles Results for this CDT risk , procedure ar e in antepartum the results section. documented in this encounter Results POCT URINALYSIS W SPECIFIC GRAVITY (08/06/2019 2:40 PM CDT) Pathologist Sig nature POCT U SP GRAV . 1.005 - 1.025 mg/dl POCT PH U . 5 - 8 mg/dl POCT U LEUK EST . Negative - Negative POCT U NIT . Negative - Negative POCT U PROT trace Negative - Negative POCT U GLU negative Negative - Negative POCT U KETONE . Negative - Negative POCT U UROBILI . 0.2 - 1 mg/dl POCT U BILI . Negative - Negative POCT U BLD . Negative - Negative POCT U COLOR POCT U APPEAR Specimen Urine - URINE, CLEAN CATCH documented in this encounter Visit Diagnoses Diagnosis Supervision of high risk , ante - Primary Multiparity Nausea and vomiting during micaela or to 22 weeks gestation Obesity in Obesity complicating , childbir th, or the puerperium, unspecified as to episode of care or not applicable documented in this encounter Insurance Payer Benefit Plan / Subscriber ID Effective Dates Phone Addre ss Type Group [place] [facility] [place] xxxxxxxxx 2019-Present Medicaid HEALTH PLAN - [place] [address] documented as of this encounter Advance Directives Type Date Recorded Patient Machine Operator Slitter Technician Explanati on Advance Directives and Living Will Power of Gravure Press Set Up Operator Name Relationship Healthcare Agent Relationship Co mmunication Lis Wheeler Mother Primary healthcare agent [email or web address]
--- OUTSIDE RECORDS SUMMARY | 2019-08-17 17:30 | XMS REPORT | Summary of Care ---
:1995 Author Organization [facility] Address [address] [place] [address] Care Team Providers Name Role Phone Doctor Unassigned, Name Insurance Hmo Unavailable Landy England Primary Care Provider Reason for Referral (Routine) Status Reason Specialty Diagnoses / Referred By Referred To Procedures Contact Contact New Request Maternal Diagnoses Supervision of high risk , antepartum Julia England Medicine Procedures CONSULT MATERNAL MEDICINE ULTRASOUND Preferred Location: GUILLERMINA Sal [address] [place] [address] Reason for Visit Reason Comments ROUTINE VISIT Tele Health Visit Encounter Details Date Type Department Care Team Description 07/09/2019 Telemedicine Visit [facility]- Julia England Supervision of high risk , antepartum (Primary Dx); GUILLERMINA Sal Multiparity; [address] Nausea and vomiting during p regnancy prior to 22 weeks gestation; [place], [place] History of anxiety; [id number] [place], [place] History of depression; [phone] [id number] History of asthma; [phone] Obesity in Allergies Active Allergy Reactions Severity Noted Date Comments Egg Unknown - See comments 03/20/2013 Nasal congestion and stuffy nose Milk Other - See comments 03/20/2013 Nasal c ongestion and stuffy nose documented as of this encounter (statuses as of 07/09/2019) Medications Medication Sig Dispensed Refills Start Date [...] Packet by 30 Each 6 06/08/2019 Active 98-lqpp-bvkzl-dha mouth daily. (SELECT-OB + DHA) 29 mg iron-1 mg -250 mg combo packIndications: Supervision of high risk , antepartum documented as of this encounter (statuses as of 07/09/2019) Active Problems Problem Noted Date Atypical squamous [...] IMPRESSION Asthma 03/20/2013 Overview: ICD10 Diagnosis Term Air Crew Officer Utility Estimated Date of Delivery Comments Yes 01/19/2020 Based on last menstr ual period of 04/14/2019 (Exact Date) documented as of this encounter (statuses as of 07/09/2019) Resolved Problems Problem Noted Date Resolved Date [...] as of this encounter (statuses as of 07/09/2019) Immunizations Name Administration Dates Next Due HPV9 [...] Signs Not on filedocumented in this encounter Progress Notes Julia England FNP - 07/09/2019 1:00 PM CDT Chief complaint: Chief Complaint Patient presents with ROUTINE VISIT Tele Health Visit TELEHEALTH NOTE Verbal consent obtained from Patient: Britney Umana and Care Provider: GUILLERMINA Diaz due to the COVID-19 pandemic for telehealth services provided below. Communication with patient was conducted via Telephone due to patient unable to obtain video call option. Location of Patient: Home Location of Provider: Home Date of Service: 07/09/2019 Chief Complaint: Routine Visit Via Tele Health HPI: Britney Umana is a 23 year old female with Past Medical History: Diagnosis Date Anxiety 02/2018 resolved Asthma as a child, uses proair inhaler prn Depression, unspecified depression type 02/19/2018 Right foot pain 08/31/2015 Tobacco use disorder 01/17/2017 ROS See Note TELEHEALTH EXAM Constitutional: Alert and no distress Respiratory: Breathing comfortably Neurology: Answers questions appropriately Psychological: Affect Normal ASSESSMENT/ PLAN After visit summary (AVS ) documentation will be available through [facility] for this encounter. A total of 15 minutes was spent on the Telephone due to patient unable to obtain video call option. Julia England, GUILLERMINA HPI CC: Follow Up Visit Britney Umana is a 23 year old, , /White female. Patient's last menstrual period was 04/14/2019 (exact date). She is 12w2d with an intrauterine . Her estimated dateof [...] file Gets together: Not on file Attends anabaptist service: Not on file Active member of [...] with boyfriend and children. One inside dog. Tenriism preference is none. Social History Substance and Sexual Activity Sexual Activity Yes Partners: Male control/protection: None Comment: Last sexual intercourse: 04/05/2019 Labs No new labs Radiology No new radiology. Allergies Britney is allergic to eggs [egg] and milk. Medications Britney has a current medication list which includes the following prescription(s): vit 50-wxdb-dksls-dha, promethazine, and proair hfa. Review of Systems Eyes: Negative for visual disturbance. Cardiovascular: Negative for leg swelling. Gastrointestinal: Negative for abdominal pain, nausea and vomiting. Genitourinary: Negative for vaginal bleeding, vaginal discharge and pelvic pain. Neurological: Negative for headaches. LMP 04/14/2019 (Exact Date) Pregravid BMI: 38.2 Physical Exam PHYSICAL: General Exam: Neurological: Normal Assessment/Plan Supervision of high risk , antepartum (primary encounter diagnosis) Multiparit Comment: Routine Visit Plan: CONSULT MATERNAL MEDICINE ULTRASOUND Preferred Location: [place] Denies zika virus risk, signs and symptoms such as fever,rash,joint pain, conjunctivitis (red eyes), muscle pain, headaches; outside [place] travel to areas affected by zika, and FOB exposure to zika. Educated on use of mosquito repellent. Covid x12 screening done, screening results are negative. Nausea and vomiting during prior to 22 weeks gestation Comment: improving, declines medication Plan: will continue to monitor History of anxiety History of depression Comment: denies any concerns at this time Plan: patient advised to call clinic if needed History of asthma Comment: went to PCP for managament Plan: PCP will manage symptoms Obesity in Comment: See BMI Plan: .michael Return to clinic in 4 weeks. Discussed treatment options. Medications as ordered. Reviewed patient instructions and provided printed copy. This visit did not involve counseling and coordination that comprised more than 50% of the visit time. GULILERMINA Diaz 07/09/2019 10:14 AM documented in this encounter Plan of Treatment Health Maintenance Due Date Last Done Comments [...] Results Not on filedocumented in this encounter Visit Diagnoses Diagnosis Supervision [...] Effective Dates Phone Addre ss Type Group [place] [facility] [place] [facility] xxxxxxxxx 2019-Present Medicaid HEALTH PLAN - [place] [address] documented as of this encounter Advance Directives Type Date Recorded Patient Personnel And Payroll Technician Explanati on Advance Directives and Living Will Power of Trench Pipe Layer Name Relationship Healthcare Agent Relationship Co mmunication Lis Wheeler Mother Primary healthcare agent ja [email or web address]
--- OUTSIDE RECORDS SUMMARY | 2019-08-17 17:31 | XMS REPORT | Summary of Care ---
:1995 Author Organization [facility] Address [address] [place] [address] Care Team Providers Name Role Phone Doctor Unassigned, Name Insurance Hmo Unavailable Landy England Primary Care Provider Reason for Visit Reason Comments Care Encounter Details Date Type Department Care Team Description 08/06/2019 Routine [facility]- Julia England upervision of high risk , antepartum (Primary Dx); Visit GUILLERMINA Sal Multiparity; [address] Nausea an d vomiting during prior to 22 weeks gestation; [address] [place] [address] [phone] Allergies Active Allergy Reactions Severity Noted Date [...] Packet by 30 Each 6 06/08/2019 Active 33-dbjz-zmzxc-dha mouth daily. 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 One inside dog. Voodoo preference is none. Social History Substance and Sexual Activity Sexual Activity Yes Partners: Male control/protection: None Comment: Last sexual intercourse: 04/05/2019 Labs Labs are pending. Radiology Radiology pending. Allergies Britney is allergic to eggs [egg] and milk. Medications Britney has a current medication list which includes the following prescription(s): vit 54-qsfz-lbsjw-dha, promethazine, and proair hfa. Review of Systems [...] Description 09/01/2019 Initial Visit Obstetrics & Moran, Dyan Jo MD Gynecology [address] [place] [address] DR. 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 Maternal Medicine Name Type Priority Associated Diagnoses Date/Ti me QUAD SCRN LAB Routine Supervision of high risk pre gnancy, 08/06/2019 2:57 PM CDT antepartum Name Type Priority Associated Diagnoses Order [...] URINALYSIS Routine 08/06/2019 2:40 PM Supervision of [facility] Results for this CDT risk , procedure [...] Effective Dates Phone Addre ss Type Group [place] [facility] [place] [facility] xxxxxxxxx 2019-Present Medicaid HEALTH PLAN - [place] [address] documented as of this encounter Advance Directives Type Date Recorded 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
--- OUTSIDE RECORDS SUMMARY | 2019-08-17 17:31 | XMS REPORT | Continuity of Care Document ---
:1995 Author Organization [facility] t Address [address] [place] [address] Care Team Providers Name Role Phone Juni Primary Care Physician Landy Mcdermott Attending Clinician Problems This patient has no known problems. Allergies, Adverse Reactions, Alerts This patient has no known allergies or adverse reactions. Social History Social Habit Start Date Stop Date Quantity Comments Source History of tobacco Cigarette Smoker [facility] Sex Assigned At [facility] Cigarettes smoked 2016-01-05 2016-01-05 [facility] - current (pack per 00:00:00 00:00:00 [facility] Center day) - Reported Smoking Status Start Date Stop Date Source Current every day smoker 2016-01-05 00:00:00 [facility] Medications Ordered Filled Start Stop Current Ordering Indication Dosage Frequency Signature Comments Components Source Medication Medication Date Date Medication? Clinician (SIG) Name Name MEDROXYPROG 2015-02 Yes Inject [facility] ESTERONE 1-17 intramuscu [facility] - ACETATE 01:55: larly. Medical (DEPO-PROVE 30 Center RA IM) BUDESONIDE/ 2015-02 Yes Inhale by [facility] FORMOTEROL 1-17 mouth via [facility] - FUMARATE 01:55: inhaler. Medic al (SYMBICORT 30 [facility] INHL) Procedures This patient has no known procedures. 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
[2019-08-17 17:40] LABS: Absolute Lymphocytes (CBC) 1.9 K/uL (0.7-4.9); Basophils % 0.4 % (0-1.3); Hematocrit 41.7 % (36.0-45.0); Lymphocytes % 16.6 % (15.3-44.8); MPV 7.9 fL (7.6-11.3); RBC Red Blood Cell Count 4.88 M/uL (3.86-4.86)
[2019-08-17 17:46] LABS: Protime INR 0.94
[2019-08-17 17:56] LABS: Urine Blood TRACE (NEG); Urine Glucose NEGATIVE (NEG); Urine Protein NEGATIVE (NEG)
[2019-08-17 18:00] LABS: Barbiturates NEGATIVE (NEGATIVE); Benzodiazepines NEGATIVE (NEGATIVE); Cocaine NEGATIVE (NEGATIVE); METHAMPHETAM NEGATIVE (NEGATIVE); Methadone NEGATIVE (NEGATIVE); Opiates NEGATIVE (NEGATIVE); Phencyclidine NEGATIVE (NEGATIVE); THC Cannibis POSITIVE (NEGATIVE)
[2019-08-17 18:01] LABS: ALT/SGPT 13 U/L (12-78); AST/SGOT 13 U/L (15-37); Albumin 3.2 g/dL (3.4-5.0); Alkaline Phosphatase 50 U/L (45-117); BUN Blood Urea Nitrogen 7 mg/dL (7-18); Bicarbonate 23 mmol/L (21-32); Bilirubin Direct < 0.1 mg/dL (0-0.2); Bilirubin Total 0.2 mg/dL (0.2-1.0); Glucose Level 83 mg/dL (74-106); Potassium 3.8 mmol/L (3.5-5.1); Protein, Total 7.2 g/dL (6.4-8.2); Sodium Level 138 mmol/L (136-145)
[2019-08-17] MEDS ORDERED: NA CHLORIDE 0.9% 0 ML ONE (18:07)
[2019-08-17] MEDS ORDERED: NA CHLORIDE 0.9% 1,000 ML ONE (18:22)
[2019-08-17] MEDS ORDERED: NA CHLORIDE 0.9% 50 ML IV ONE (18:22)
[2019-08-17] MEDS ORDERED: CEFTRIAXONE 1000 MG/VIAL ONE (18:22)
[2019-08-17] MEDS ORDERED: ACETAMINOPHEN 325 MG TABLET ONE (18:22)
--- NOTE | 2019-08-17 19:03 | ER ---
Nurse's Notes [facility] Name: Britney Umana Age: 24 yrs Sex: Female : 1995 Arrival Date: 08/17/2019 Time: 16:44 Bed 15 Private MD: Diagnosis: Suicidal ideations;Major depressive disorder, recurrent;Urinary tract infection, site not specified; related conditions, unspecified, first trimester Presentation: 08/16 16:51 Chief complaint: Patient states: suicidal thoughts started a couple of days ago, sv started self harming 3 days ago with cutting on the upper thighs. Reports her plan today was to cut her wrists. Coronavirus screen: Proceed with normal triage. Patient reports a cough. Patient denies shortness of breath or difficulty breathing. Patient denies measured and/or subjective temperature greater than 100.4F prior to today's visit. Patient denies travel on a cruise ship or to a country the [facility] currently lists as an affected area. Patient denies contact with known and/or suspected case of COVID-19. Ebola Screen: No symptoms or risks identified at this time. Risk Assessment: Do you want to hurt yourself or someone else? Patient reports desire/thoughts of hurting themselves or someone else. Provider notified. Onset of symptoms was July 2019. 16:51 Method Of Arrival: Ambulatory sv 16:51 Acuity: CARLYLE 2 sv 16:55 Initial Sepsis Screen: Does the patient meet any 2 criteria? HR > 90 bpm. No. Patient's sv initial sepsis screen is negative. Does the patient have a suspected source of infection? No. Patient's initial sepsis screen is negative. Triage Assessment: 16:57 General: Appears in no apparent distress. comfortable, Behavior is cooperative, sv appropriate for age, crying. Pain: Denies pain. Neuro: Level of Consciousness is awake, alert, obeys commands, Oriented to person, place, time, situation, Gait is steady. Respiratory: Respiratory effort is even, unlabored. SKIN TOGGLER: 17:15 Verified vc Historical: - Allergies: 16:53 No Known Allergies; sv - PMHx: 16:53 Asthma; Depression; sv - PSHx: 16:53 None; sv - Immunization history:: Adult Immunizations up to date. - Social history:: Smoking status: Patient denies any tobacco usage or history of. Patient/guardian denies using street drugs, IV drugs. - Family history:: not pertinent. Screenin:55 Abuse screen: Denies threats or abuse. Nutritional screening: No deficits noted. vc Tuberculosis screening: No symptoms or risk factors identified. Fall Risk None identified. Assessment: 17:51 General: Appears in no apparent distress. Behavior is cooperative, anxious, crying. ah Pain: Denies pain. Neuro: Level of Consciousness is awake, alert, Oriented to person, place, time, situation, Appropriate for age. Cardiovascular: Capillary refill < 3 seconds Patient's skin is warm and dry. Respiratory: Airway is patent Respiratory effort is even, unlabored, Respiratory pattern is regular, symmetrical. GI: Pt states that she is . EENT:. Derm: Skin is intact, is healthy with good turgor, Wound noted right quadriceps Wound is superficial lacerations noted. 18:30 Reassessment: Patient appears in no apparent distress at this time. Patient and/or vc family updated on plan of care and expected duration. Pain level reassessed. Patient is alert, oriented x 3, equal unlabored respirations, skin warm/dry/pink. 19:30 Reassessment: Patient appears in no apparent distress at this time. Patient and/or vc family updated on plan of care and expected duration. Pain level reassessed. Patient is alert, oriented x 3, equal unlabored respirations, skin warm/dry/pink. 20:30 Reassessment: Patient appears in no apparent distress at this time. Patient and/or vc family updated on plan of care and expected duration. Pain level reassessed. Patient is alert, oriented x 3, equal unlabored respirations, skin warm/dry/pink. 21:30 Reassessment: Patient appears in no apparent distress at this time. Patient and/or vc family updated on plan of care and expected duration. Pain level reassessed. Patient laying with eyes closed resting. 22:30 Reassessment: Patient appears in no apparent distress at this time. Patient and/or vc family updated on plan of care and expected duration. Pain level reassessed. Patient is alert, oriented x 3, equal unlabored respirations, skin warm/dry/pink. Patient denies pain at this time. 23:30 Reassessment: Patient appears in no apparent distress at this time. Patient and/or vc family updated on plan of care and expected duration. Pain level reassessed. Patient is alert, oriented x 3, equal unlabored respirations, skin warm/dry/pink. Patient denies pain at this time. 08/17 00:30 Reassessment: Patient appears in no apparent distress at this time. Patient and/or vc family updated on plan of care and expected duration. Pain level reassessed. Patient is alert, oriented x 3, equal unlabored respirations, skin warm/dry/pink. Patient denies pain at this time. 01:30 Reassessment: Patient appears in no apparent distress at this time. Patient and/or vc family updated on plan of care and expected duration. Pain level reassessed. Patient is alert, oriented x 3, equal unlabored respirations, skin warm/dry/pink. Patient denies pain at this time. 01:51 Reassessment: Patient using restroom at this time. Psych: 08/16 16:53 Subjective: Patient's mood is sad, Delusions are denied, Hallucinations are denied sv Having thoughts of suicide. Plan for suicide is "I was going to cut my wrists.". Objective: Patient is cooperative, Speech is normal, Affect is appropriate, Patient has mutilated themselves by cutting herself on her upper thighs. Suicide Risk Assessment: Sad Person Scale: Sex of patient: Female: Score 0 points. Age of patient: Score 1 point if patient 15-34. Depression: Score 1 point if signs of depression are present. Previous Attempt: Score 1 point if patient has previously attempted suicide. Substance Abuse: Score 1 point if patient abuses alcohol or drugs. Rational Thinking: Score 0 point if patient has rational thinking. Social Support: Score 1 point if social support is lacking and/or unavailable. Organized Plan: Score 1 point if patient had a plan in place. Relationship: Score 1 point if patient is , , , or for a single male Chronic Sickness: Score 0 point if patient does not have a chronic illness, debilitating, or severe disorder. TOTAL POINTS: If total points are 7-10, the proposed clinical action is to hospitalize or commit. Implement suicide precautions. Patient uses marijuana Last use was 3 days ago. Reports she ate an edible marijuana cookie but was unaware that it had marijuana in it. Commitment: Patient will be a voluntary commitment. 17:10 Interventions: Removed personal items and placed in bag. Patient placed in hospital vc gown. Searched person for dangerous items. Urine collected and sent for urine drug test. Belonging list filled out. 17:10 Safety Checks: Personal items have been removed. Door is open. No visitors are present vc at this time. maintenance shop technician sitting outside the room as sitter. Vital Signs: 16:55 BP 112 / 70; Pulse 102; Resp 20; Temp 98.9; Pulse Ox 97% ; Weight 92.08 kg; Height 5 sv ft. 2 in. (157.48 cm); Pain 0/10; 23:00 BP 118 / 68; Pulse 90; Resp 18; Temp 98.8; Pulse Ox 100% ; vc 16:55 Body Mass Index 37.13 (92.08 kg, 157.48 cm) sv ED Course: 16:44 Patient arrived in ED. mr 16:51 Arm band placed on. sv 16:52 Triage completed. sv 16:58 Ken Tamayo MD is Attending Physician. [facility] 17:05 Beverly Baxter, RN is Primary Nurse. 17:30 Inserted saline lock: 20 gauge in right antecubital area, using aseptic technique. jp3 Blood collected. 17:30 Initial lab(s) drawn, by il, sent to lab. jp3 17:40 Urine collected: clean catch specimen, clear, mary colored. jp3 17:45 Safety checks: Items removed: yes. Door open/sign placed on door: yes. Family/friend jp3 present: no. Sitter present: Yes. Bed in low position. Pillow given. Verbal reassurance given. 18:04 called the [facility] Crisis Line at [phone]/ Vita will page out the screener on eb call. 18:28 connected Lucila from [facility] with the patient via ipad. eb 19:15 EKG done, by ED staff, reviewed by Ken Tamayo MD. jp3 22:40 Initiated pt transfer with [facility]. Faxed over requested information. tt3 23:40 Patient was accepted to [facility] while doing Doc to Doc with Mitzi. tt3 23:48 Francisco Cartagena PA is PHCP. jr8 08/17 02:13 No provider procedures requiring assistance completed. IV discontinued, intact, vc bleeding controlled, No redness/swelling at site. Pressure dressing applied. Administered Medications: 08/16 18:30 Drug: NS 0.9% 1000 ml Route: IV; Rate: 1 bolus; Site: right antecubital; vc 19:30 Follow up: IV Status: Completed infusion; IV Intake: 1000ml vc 18:30 Drug: Rocephin - (cefTRIAXone) 1 grams Route: IVPB; Infused Over: 30 mins; Site: right vc antecubital; 19:30 Follow up: IV Status: Completed infusion; IV Intake: 50ml vc 18:31 Drug: Tylenol 650 mg Route: PO; vc 21:35 Follow up: Response: No adverse reaction; Pain is decreased vc Point of Care Testing: Urine : 17:40 hCG Reading: Positive; Control Reading: Positive; jp3 Intake: 19:30 IV: 50ml; Total: 50ml. vc 19:30 IV: 1000ml; Total: 1050ml. vc Outcome: 19:03 ER care complete, transfer ordered by MD. chandra 08/17 02:13 Transferred by ground EMS to other acute care facility: [facility]. vc Transfer form completed. Condition: good Instructed on the need for transfer. 02:14 Patient left the ED. vc Signatures: Elyse Mckeon RN RN Ken Machado MD MD cha Rivera, Radha mr Francisco Cartagena PA PA jr8 Guerda Barboza Jacob jp3 Opal Carpenter RN RN vc Harris, Amy RN Adien Betancourt tt3 Corrections: (The following items were deleted from the chart) 08/16 16:58 16:55 Pulse 102bpm; Resp 20bpm; Pulse Ox 97%; Temp 98.9F; 92.08 kg; Height 5 ft. 2 in.; sv BMI: 37.1; sv
--- NOTE | 2019-08-17 19:04 | EDPHYS ---
Physician Documentation [facility] Name: Britney Umana Age: 24 yrs Sex: Female : 1995 Arrival Date: 08/17/2019 Time: 16:44 Bed 15 Private MD: ED Physician Ken Tamayo HPI: 08/16 17:59 This 24 yrs old Female presents to ER via Ambulatory with complaints of corazon Suicidal Ideation. 17:59 The patient presents to the emergency department with depression, suicide ideation, but corazon the patient has no formulated plan. Onset: The symptoms/episode began/occurred 3 day(s) ago. Past psychiatric history: Prior diagnosis: depression. Associated signs and symptoms: The patient has no apparent associated signs or symptoms. Severity of symptoms: At their worst the symptoms were mild moderate in the emergency department the symptoms are unchanged. The patient has not experienced similar symptoms in the past. ASSEMBLER FINAL: 17:15 Verified vc Historical: - Allergies: 16:53 No Known Allergies; sv - PMHx: 16:53 Asthma; Depression; sv - PSHx: 16:53 None; sv - Immunization history:: Adult Immunizations up to date. - Social history:: Smoking status: Patient denies any tobacco usage or history of. Patient/guardian denies using street drugs, IV drugs. - Family history:: not pertinent. ROS: 17:59 Constitutional: Negative for fever, chills, and weight loss, Eyes: Negative for injury, corazon pain, redness, and discharge, ENT: Negative for injury, pain, and discharge, Neck: Negative for injury, pain, and swelling, Cardiovascular: Negative for chest pain, palpitations, and edema, Respiratory: Negative for shortness of breath, cough, wheezing, and pleuritic chest pain, Abdomen/GI: Negative for abdominal pain, nausea, vomiting, diarrhea, and constipation, Back: Negative for injury and pain, : Negative for injury, bleeding, discharge, and swelling, MS/Extremity: Negative for injury and deformity, Skin: Negative for injury, rash, and discoloration, Neuro: Negative for headache, weakness, numbness, tingling, and seizure, Allergy/Immunology: Negative for hives, rash, and allergies, Endocrine: Negative for neck swelling, polydipsia, polyuria, polyphagia, and marked weight changes, Hematologic/Lymphatic: Negative for swollen nodes, abnormal bleeding, and unusual bruising. 17:59 Psych: Positive for depression. Exam: 17:59 Constitutional: This is a well developed, well nourished patient who is awake, alert, corazon and in no acute distress. Head/Face: Normocephalic, atraumatic. Eyes: Pupils equal round and reactive to light, extra-ocular motions intact. Lids and lashes normal. Conjunctiva and sclera are non-icteric and not injected. Cornea within normal limits. Periorbital areas with no swelling, redness, or edema. ENT: Nares patent. No nasal discharge, no septal abnormalities noted. Tympanic membranes are normal and external auditory canals are clear. Oropharynx with no redness, swelling, or masses, exudates, or evidence of obstruction, uvula midline. Mucous membranes moist. Neck: Trachea midline, no thyromegaly or masses palpated, and no cervical lymphadenopathy. Supple, full range of motion without nuchal rigidity, or vertebral point tenderness. No Meningismus. Chest/axilla: Normal chest wall appearance and motion. Nontender with no deformity. No lesions are appreciated. Cardiovascular: Regular rate and rhythm with a normal S1 and S2. No gallops, murmurs, or rubs. Normal PMI, no JVD. No pulse deficits. Respiratory: Lungs have equal breath sounds bilaterally, clear to auscultation and percussion. No rales, rhonchi or wheezes noted. No increased work of breathing, no retractions or nasal flaring. Abdomen/GI: Soft, non-tender, with normal bowel sounds. No distension or tympany. No guarding or rebound. No evidence of tenderness throughout. Back: No spinal tenderness. No costovertebral tenderness. Full range of motion. Skin: Warm, dry with normal turgor. Normal color with no rashes, no lesions, and no evidence of cellulitis. MS/ Extremity: Pulses equal, no cyanosis. Neurovascular intact. Full, normal range of motion. Neuro: Awake and alert, GCS 15, oriented to person, place, time, and situation. Cranial nerves II-XII grossly intact. Motor strength 5/5 in all extremities. Sensory grossly intact. Cerebellar exam normal. Normal gait. Psych: Awake, alert, with orientation to person, place and time. Behavior, mood, and affect are within normal limits. Vital Signs: 16:55 BP 112 / 70; Pulse 102; Resp 20; Temp 98.9; Pulse Ox 97% ; Weight 92.08 kg; Height 5 sv ft. 2 in. (157.48 cm); Pain 0/10; 23:00 BP 118 / 68; Pulse 90; Resp 18; Temp 98.8; Pulse Ox 100% ; vc 16:55 Body Mass Index 37.13 (92.08 kg, 157.48 cm) sv MDM: 16:58 Patient medically screened. [facility] 18:01 Data reviewed: vital signs, nurses notes, lab test result(s), EKG. corazon 23:48 Counseling: I had a detailed discussion with the patient and/or guardian regarding: the jr8 historical points, exam findings, and any diagnostic results supporting the discharge/admit diagnosis, lab results, the need to transfer to another facility. ED course: Talked to a Dr. Calvert at [facility] who excepted patient . 08/16 16:59 Order name: Acetaminophen; Complete Time: 19: [facility] 08/16 16:59 Order name: Basic Metabolic Panel; Complete Time: 19:08/16 16:59 Order name: CBC with Diff; Complete Time: 19: [facility] 08/16 16:59 Order name: ETOH Level; Complete Time: 19:08/16 16:59 Order name: Hepatic Function; Complete Time: 19:08/16 16:59 Order name: PT-INR; Complete Time: 19:08/16 16:59 Order name: Ptt, Activated; Complete Time: 19:08/16 16:59 Order name: Salicylate; Complete Time: 19:08/16 16:59 Order name: Urine Drug Screen; Complete Time: 19: [facility] 08/16 17:53 Order name: Urine Dipstick--Ancillary (enter results); Complete Time: 19: 08/16 17:53 Order name: Urine --Ancillary (enter results); Complete Time: 19: 08/16 17:59 Order name: Urine Culture [facility] 08/16 16:59 Order name: Urine Test (obtain specimen); Complete Time: 17:54 [facility] 08/16 16:59 Order name: EKG; Complete Time: 17:00 [facility] 08/16 16:59 Order name: EKG - Nurse/Tech; Complete Time: 20:29 [facility] 08/16 16:59 Order name: IV Saline Lock; Complete Time: 17:51 [facility] 08/16 16:59 Order name: Labs collected and sent; Complete Time: 17:51 [facility] 08/16 16:59 Order name: Urine Dipstick-Ancillary (obtain specimen); Complete Time: 17:54 [facility] 08/16 17:25 Order name: Diet Finger Food; Complete Time: 17:25 em1 Administered Medications: 18:30 Drug: NS 0.9% 1000 ml Route: IV; Rate: 1 bolus; Site: right antecubital; vc 19:30 Follow up: IV Status: Completed infusion; IV Intake: 1000ml vc 18:30 Drug: Rocephin - (cefTRIAXone) 1 grams Route: IVPB; Infused Over: 30 mins; Site: right vc antecubital; 19:30 Follow up: IV Status: Completed infusion; IV Intake: 50ml vc 18:31 Drug: Tylenol 650 mg Route: PO; vc 21:35 Follow up: Response: No adverse reaction; Pain is decreased vc Point of Care Testing: Urine : 17:40 hCG Reading: Positive; Control Reading: Positive; jp3 Disposition: 08/17 13:20 Co-signature as Attending Physician, Ken Tamayo MD I agree with the assessment and [facility] plan of care. Disposition: 08/17/19 19:03 Transfer ordered to Psych Facility. Diagnosis are Suicidal ideations, Major depressive disorder, recurrent, Urinary tract infection, site not specified, related conditions, unspecified, first trimester. - Reason for transfer: Higher level of care. - Accepting physician is psych. - Condition is Stable. - Problem is new. - Symptoms have improved. Signatures: Dispatcher [employer] Elyse Christine RN RN sv Anderson, Corey, MD MD cha Roszak, Josh, PA PA [id number] Opal Carpenter RN RN vc Corrections: (The following items were deleted from the chart) 02:14 08/16 19:03 08/17/2019 19:03 Transfer ordered to Psych Facility. Diagnosis is Suicidal vc ideations; Major depressive disorder, recurrent; Urinary tract infection, site not specified; related conditions, unspecified, first trimester. Reason for transfer: Higher level of care. Accepting physician is psych. Condition is Stable. Problem is new. Symptoms have improved. corazon
[2019-08-18 02:26] VITALS: BP 118/68; TEMP 98.8; O2SAT 100
--- NOTE | 2019-08-19 07:20 | EKG ---
Test Date: 2019-08-17 Test Time: 19:06:37 Hand Braille Transcriber: GERBER MEASUREMENT RESULTS: Intervals: Rate: 80 SC: 146 QRSD: 84 QT: 368 QTc: 424 [place]: P: 53 SC: 146 QRS: 63 T: 33 INTERPRETIVE STATEMENTS: Normal sinus rhythm Normal ECG Compared to ECG 09/13/2017 16:12:22 No significant changes Electronically Signed On 08-19-19 07:16:08 CDT by Inocencio Angelo
== END 2019-08-18 02:14 ==
LOC: ER 16:41
DX: O99.341 Other mental disorders complicating pregnancy, first trimester (principal); F33.9 Major depressive disorder, recurrent, unspecified; O23.41 Unspecified infection of urinary tract in pregnancy, first trimester; Z3A.00 Weeks of gestation of pregnancy not specified
CPT/HCPCS: 96365; 93005; 87088; 85025; 87086; 80048; 36415; 80320; 80329 ×2; 81025; 85610; 80076; 80307 ×8; 85730; 81003; 99285; J7030

== ENCOUNTER 2021-08-12 00:01 | Emergency (ER) | payer OTHER ==
--- OUTSIDE RECORDS SUMMARY | 2021-08-12 00:05 | XMS REPORT | Continuity of Care Document ---
:1995 Author Organization [facility] t Address [address] [place] [address] Care Team Providers Name Role Phone Sharpless Primary Care Physician Jacob MAYBERRY C Attending Clinician Yoandy WHITFIELD Attending Clinician Unavailable Renato MICHELLE Attending Clinician Olu MICHELLE Attending Clinician Nolan MICHELLE Attending Clinician VICKY Attending Clinician Unavailable MD GILBERTO PERRY Attending Clinician Unavailable Renato MICHELLE Admitting Clinician MIYA Admitting Clinician Unavailable MD MIYA Admitting Clinician Unavailable Payers Payer Name Policy Type Policy Number Effective Date Expiration Date S ource Problems Condition Condition Condition Status Onset Resolution Last Treating Co mments Source Name Details Category Date Date Treatment Clinician Date Other Other Disease Active Univers general general 5-31 ity of counseling [place] advice and advice 00 Me dical for for Branch contracept contracept tony tony management management Marijuana Marijuana Disease Active 2019-02 Uni vers use use 1-16 ity of 00:00: [place] 00 Medical Branch Tubal Tubal Disease Active 2019-02 Univers ligation ligation 0-20 ity of status status 00:00: [place] [facility] 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 on vaginal on vaginal Repeat cytology cytology Pap Smear in 2020. History of History of Disease Active U nivers depression depression 4-20 it y of 00:00: [place] [facility] History of History of Disease Active U nivers asthma asthma 4-20 ity of 00:: [place] [facility] History of History of Disease Active U nivers anxiety anxiety 4-20 ity of 00:: [place] [facility] Obesity Obesity Disease Active Univers (BMI (BMI 4-11 ity of 30-39.9) 30-39.9) 00:00: [place] [facility] Rubella Rubella Disease Active Overview: Univ ers non-immune non-immune 02-19 Formattin ity of status, status, 00:00: g of this [place] antepartum antepartum 00 note Me dical might be Branch different from the original. Address in Post[place] ( 0 Maternal Maternal Disease Active Overview: Un juan jose varicella, varicella, 02-19 Formattin ity of non-immune non-immune 00:00: g of this [place] note Medical might be Branch different from the original. Address in Post[place]. Left Left Disease Active 2016-02 Overview: Univer s breast breast 03-19 Formattin ity of mass mass 00:00: g of this [place] note is Medical different Branch from the original. LEFT BREAST: Solid mass on ultrasoun d at 2 o'clock. This is most likely a fibroaden lillie. Since it has grown in size over time histology using core biopsy is recommend ed at this time. ?OVERALL ASSESSMEN T - CATEGORY 4A - LOW SUSPICION END OF IMPRESSIO N Allergies, Adverse Reactions, Alerts Allergy Allergy Status Severity Reaction(s) Onset Inactive Treating Comm ents Source Name Type Date Date Clinician NO KNOWN Drug Active Univers ALLERGIE Class ity of S [facility] Social History Social Habit Start Date Stop Date Quantity Comments Source History SDOH [facility] Alcohol Comment Hospital History SDOH [facility] Std Drinks Hospit al History SDOH [facility] B[facility] ASSERTION [facility] Exposure to 2021-07-08 2021-07-18 Not sure [facility] SARS-CoV-2 (event) 00:00:00 08:34:00 [facility] Cigarettes smoked 2021-07-18 2021-07-18 Univers ity of current (pack per 00:00:00 00:00:00 [facility] ed) - Reported Branch Cigarette 2021-07-18 2021-07-18 University of pack-years 00:00:00 00:00:00 [facility] Alcohol intake 2021-07-18 2021-07-18 0 /d University of 00:00:00 00:00:00 [facility] Tobacco use and 2021-07-18 2021-07-18 Never used Universit y of exposure 00:00:00 00:00:00 [facility] History SDOH 2019-08-18 2019-08-18 1 [facility] Alcohol Frequency 00:00:00 00:00:00 Hospita l Tobacco Comment 2019-06-08 2019-06-08 1-2 cig less Univers ity of 00:00:00 00:00:00 than a day per [facility] Branch History of tobacco 2013-01-17 2018-01-06 Cigarette Smoker University of use 00:00:00 00:00:00 [facility] Sex Ass[birth year] At [birth year] Universit y of 00:00:00 00:00:00 [facility] Smoking Status Start Date Stop Date Source Former smoker 2021-07-18 00:00:00 2021-07-18 00:00:[address] [facility] Never smoked tobacco [facility] Current every day 2016-01-05 00:00:00 [facility] Medications Ordered Filled Start Stop Current Ordering Indication Dosage Frequency Signature Comments Components Source Medication Medication Date Date Medication? Clinician (SIG) Name Name metroNIDAZO Yes [id number] 500mg Take 1 Univers LE 500 mg -02 tablet by ity o f tablet 00:00: mouth 2 [place] 00 (two) Medical times Branch daily. terconazole 202- Yes [id number] 80mg Insert 1 Univers 80 mg 07-20 06-06 Suppositor ity of vaginal 00:00: 04:59 y into [place] suppository 00 :00 vagina at [facility] bedtime Branch for 3 days. chlorphenir 2020-02 Yes [id number] 4mg Take 1 Univers amine 4 mg 0-06 tablet by ity of tablet 00:00: mouth [place] 00 every 6 Medical (six) Branch hours as needed for Allergies or Runny nose. calcium/mag 2020-02 Yes [id number] 1{each} Take 1 Univers nesium/zinc 0-06 Each by ity o f (CALCIUM-MA 00:00: mouth [place] GNESUIUM-ZI 00 daily. Medica l NC) Branch 333-133-5 mg Tab benzonatate 2020-02 Yes [id number] 100mg Take 1 Univers 100 mg 0-06 capsule by ity of capsule 00:00: mouth 3 (three) Medical times Branch daily as needed for Cough. chlorphenir 2020-02 Yes [id number] 4mg Take 1 Univers amine 4 mg 0-06 tablet by ity of tablet 00:00: mouth [place] 00 every 6 Medical (six) Branch hours as needed for Allergies or Runny nose. calcium/mag 2020-02 Yes [id number] 1{each} Take 1 Univers nesium/zinc 0-06 Each by ity o f (CALCIUM-MA 00:00: mouth [place] GNESUIUM-ZI 00 daily. Medica l NC) Branch 333-133-5 mg Tab benzonatate 2020-02 Yes [id number] 100mg Take 1 Univers 100 mg 0-06 capsule by ity of capsule 00:00: mouth 3 (three) Medical times Branch daily as needed for Cough. ciprofloxac Yes [id number] 500mg Take 1 Univers in HCl 500 8-17 tablet by ity of mg tablet 00:00: mouth 2 (two) Medical times Branch daily. metroNIDAZO Yes [id number] 500mg Take 1 Univers LE 500 mg 8-17 tablet by ity o f tablet 00:00: mouth 2 (two) Medical times Branch daily. ondansetron Yes [id number] 4mg Take 1 Univers 4 mg 8-17 tablet by ity of disintegrat 00:00: mouth [place] ing tablet 00 every 8 Medica l (eight) Branch hours as needed for Nausea and Vomiting (N/V). ciprofloxac Yes [id number] 500mg Take 1 Univers in HCl 500 8-17 tablet by ity of mg tablet 00:00: mouth 2 [place] 00 (two) Medical times Branch daily. metroNIDAZO Yes [id number] 500mg Take 1 Univers LE 500 mg 8-17 tablet by ity o f tablet 00:00: mouth 2 [place] 00 (two) Medical times Branch daily. ondansetron Yes [id number] 4mg Take 1 Univers 4 mg 8-17 tablet by ity of disintegrat 00:00: mouth [place] ing tablet 00 every 8 Medica l (eight) Branch hours as needed for Nausea and Vomiting (N/V). 2019-02 Yes [id number] 1{tbl} Take 1 Univers vitamin 1-18 tablet by ity of w/FA tablet 00:00: mouth [place] 00 daily. Medical Branch docusate 2019-02 Yes [id number] 240mg Take 1 U nivers calcium 240 1-18 capsule by it y of mg capsule 00:00: mouth [place] 00 daily as Medical needed for Branch Constipati on. ferrous 2019-02 Yes [id number] 325mg Take 1 Un juan jose sulfate 325 1-18 tablet by ity of mg (65 mg 00:00: mouth 2 [place] iron) 00 (two) Medical tablet times Branch daily. ibuprofen 2019-02 Yes [id number] 600mg Take 1 Univers 600 mg 1-18 tablet by ity of tablet 00:00: mouth [place] 00 every 6 Medical (six) Branch hours as needed (Pain). Take with food or milk. 2019-02 Yes [id number] 1{tbl} Take 1 Univers vitamin 1-18 tablet by ity of w/FA tablet 00:00: mouth [place] 00 daily. Medical Branch docusate 2019-02 Yes [id number] 240mg Take 1 U nivers calcium 240 1-18 capsule by it y of mg capsule 00:00: mouth once [place] 00 daily as Medical needed for Branch Constipati on. ferrous 2019-02 Yes [id number] 325mg Take 1 Un juan jose sulfate 325 1-18 tablet by ity of mg (65 mg 00:00: mouth 2 [place] iron) 00 (two) Medical tablet times Branch daily. ibuprofen 2019-02 Yes [id number] 600mg Take 1 Univers 600 mg 1-18 tablet by ity of tablet 00:00: mouth [place] 00 every 6 Medical (six) Branch hours as needed (Pain). Take with food or milk. montelukast 2019-02 Yes Univer s 10 mg 1-09 ity of tablet 00:00: Medical Branch montelukast 2019-02 Yes Univer s 10 mg -09 ity of tablet 00:00: [place] [facility] SERTraline 2019-02 Yes 50mg Take 50 mg U nivers 50 mg 0-18 by mouth ity of tablet 00:00: daily. Medical Branch SERTraline 2019-02 Yes 50mg Take 50 mg U nivers 50 mg 0-18 by mouth ity of tablet 00:00: daily. Medical Branch albuterol Yes 1{ampul Q6H Take 1 Met hodi (ACCUNEB) 7-07 e} ampule by st 1.25 mg/3 15:33: nebulizati Ho spita mL 52 on every 6 l nebulizer (six) solution hours as needed for wheezing. albuterol Yes 1{ampul Q6H Take 1 Met hodi (ACCUNEB) 7-07 e} ampule by st 1.25 mg/3 10:33: nebulizati Ho spita mL 52 on every 6 l nebulizer (six) solution hours as needed for wheezing. MEDROXYPROG 2015-[address] [facility] [address] [facility] 1-[facility] ACETATE 02:02: larly. Medical (DEPO-PROVE 03 [facility]) BUDESONIDE/ 2015-02 Yes Inhale by [facility] FORMOTEROL 1-17 mouth via Luke s FUMARATE 02:02: inhaler. Medic al (SYMBICORT 03 [facility]) MEDROXYPROG 2015-[address] [facility] EST[facility]ONE 1-17 [facility] ACETATE 02:02: larly. Medical (DEPO-PROVE 03 [facility]) BUDESONIDE/ 2015-02 Yes Inhale by C [facility] FORMOTEROL 1-17 mouth via Luke s FUMARATE 02:02: inhaler. Medic al (SYMBICORT 03 [facility]) PROAIR HFA 2015- Yes INHALE 2 Uni vers 90 6-22 PUFFS ity of mcg/actuati 00:00: EVERY 4-6 [place] on inhaler 00 HOURSAS Medica l NEEDED Branch PROAIR HFA 2015-0 Yes INHALE 2 Uni vers 90 6-22 PUFFS ity of mcg/actuati 00:00: EVERY 4-6 [place] on inhaler 00 HOURSAS Medica l NEEDED Branch Immunizations Ordered Filled Immunization Date Status Comments [facility] e Immunization Name Name HPV9 2021-07-18 Completed University of 00:00:00 [facility] HPV9 2021-07-18 Completed University of 00:00:00 [facility] HPV9 2020-01-06 Completed University of 00:00:00 [facility] HPV9 2020-01-06 Completed University of 00:00:00 [facility] TDAP 2019-11-13 Completed University of 00:00:00 [facility] Influenza Virus 2019-11-13 Completed Universit y of Vaccine Quad .5 mL 00:00:00 [facility] 6+ MO Branch TDAP 2019-11-13 Completed University of 00:00:00 [facility] Influenza Virus 2019-11-13 Completed Universit y of Vaccine Quad .5 mL 00:00:00 [facility] 6+ MO Branch TDAP 2018-07-01 Completed University of 00:00:00 [facility] TDAP 2018-07-01 Completed University of 00:00:00 [facility] Influenza Virus 2017-12-10 Completed Universit y of Vaccine 00:00:00 [facility] Influenza Virus 2017-12-10 Completed Universit y of Vaccine 00:00:00 [facility] HPV9 2017-01-17 Completed University of 00:00:00 [facility] HPV9 2017-01-17 Completed University of 00:00:00 [facility] Vital Signs Vital Name Observation Time Observation Value Comments Source Body weight 2021-07-18 13:35:00 74.985 kg [facility] BMI 2021-07-18 13:35:00 30.24 kg/m2 [facility] Systolic blood 2021-07-18 13:35:00 127 mm[Hg] Univer sity of pressure [facility] Diastolic blood 2021-07-18 13:35:00 74 mm[Hg] Unive rsity of pressure [facility] Heart rate 2021-07-18 13:35:00 89 /min [facility] Body temperature 2021-07-18 13:35:[address] [facility] [place] [facility] 2021-07-18 13:35:00 18 /min [facility] Body height 2021-07-18 13:35:00 157.5 cm [facility] Procedures Procedure Date / Time Performed Performing Clinician Souryoandy e GARDASIL 9 (HPV 9V) 2021-07-18 14:14:00 Trena Whitfield Uni versbecky of [place] VACCINE [facility] POCT URINALYSIS W/O 2021-07-18 13:36:00 Trena Whitfield Uni versbecky [facility] Plan of Care Planned Activity Planned Date Details Comments Source Future Scheduled 2020-12-22 COVID-[address] [facility] Test 05:07:22 (1) [code = COVID-19 VACCINE (1)] Future Scheduled 2020-12-22 [facility] Test 05:07:22 screening (procedure) [code = 786416727] Future Scheduled 2020-12-22 [facility] for [facility] Test 05:07:22 malignant neoplasm of cervix (procedure) [code = 516683693] Future Scheduled 2020-12-22 CHLAMYDIA SCREENING [facility] Test 05:07:22 [code = CHLAMYDIA SCREENING] Future Scheduled 2020-12-22 INFLUENZA VACCINE [facility] Test 05:07:22 [code = INFLUENZA VACCINE] Future Scheduled COVID-[address] [facility] Test (1) [code = COVID-19 VACCINE (1)] Future Scheduled [facility] screening (procedure) [code = 172624530] Future Scheduled [facility] Test malignant neoplasm of cervix (procedure) [code = 628462777] Future Scheduled CHLAMYDIA SCREENING [facility] Test [code = CHLAMYDIA SCREENING] Future Scheduled INFLUENZA VACCINE [facility] Test [code = INFLUENZA VACCINE] Encounters Start End Encounter Admission Attending Care Care Encounter Source Date/Time Date/Time Type Type Clinicians Facility Department ID 2021-07-20 2021-07-20 Telephone BJORN Whitfield [id number] Univers 00:00:00 00:00:00 Trena C SORTER LUMBER STRAIGHTENER [id number] ity of [facility] [id number] Harshad as MATERNAL [id number] [facility] & CHILD [address] [place] [address] 2021-07-18 2021-07-[address] [facility] [id number] Univers 08:30:00 09:19:59 Visit Trena C SORTER LUM[employer] STRAIGHTENER [id number] ity of [facility] [id number] Harshad as MATERNAL [id number] [facility] & CHILD [address] [place] [address] 2021-07-18 2021-07-18 Outpatient R [facility] [id number] Univers 08:30:00 09:19:[address] o [address] [facility] 2020-02-01 2020-02-[address] [facility] [id number] 00:00:00 00:00:00 Trena C SORTER LUM[employer] STRAIGHTENER [id number] [facility] [id number] MATERNAL [id number] & CHILD [address] [place] [address] 2020-01-04 2020-01-06 [facility] SHANNAN Gross [id number] 13:40:00 23:37:00 Encounter Sarahdamien PIERRE [id number] [id number] 2020-01-05 2020-01-05 Anesthesia Jose Raines [id number] 06:00:00 13:07:00 Richard Francisco [id number] ANNEX [id number] 2019-08-25 2019-08-25 Outpatient [facility] [id number] Brave 00:00:00 00:00:[address] 2019-08-18 2019-08-20 Inpatient [facility] [id number] Brave 00:00:00 00:00:00 [place] [address] Results Test Description Test Time Test Comments Results Result Comments Source POCT URINALYSIS W/O SPECIFIC GRAVITY 2021-07-18 13:36:00 Test Item Value Reference Range Interpretation Comme nts POCT PH U (test code = 3254) 5 mg/dl 5-8 POCT U LEUK EST (test code = 3263) Trace Negative - Negative POCT U NIT (test code = 3262) Neg Negative - Negative POCT U PROT (test code = 3259) Trace Negative - Negative POCT U GLU (test code = 3256) Neg Negative - Negative POCT U KETONE (test code = 3258) Small Negative - Negative POCT U BLD (test code = 3257) Trace Negative - Negative [facility] coronavirus 2 RNA [Presence] in Respiratory specimen by JAYLA with probe [id number] 03:25:27 Test Item Value Reference Range Interpretation Comments SARS coronavirus 2 RNA Not detected Not-Detected [Presence] in Respiratory specimen by JAYLA with probe detection (test code = 88596-2)
[2021-08-12 00:46] LABS: Urine Blood Trace-intact (Negative); Urine Glucose Negative (Negative); Urine Protein Negative (Negative); Urine Specific Gravity 1.015 (1.005-1.030); Urine pH 5.5 (5.0-7.0)
[2021-08-12 00:55] LABS: Urine Specific Gravity/Preg 1.015 (1.005-1.030)
[2021-08-12 01:16] LABS: Absolute Lymphocytes (CBC) 3.2 K/uL (0.7-4.9); Hematocrit 37.8 % (36.0-45.0); MPV 6.9 fL (7.6-11.3); RBC Red Blood Cell Count 4.24 M/uL (3.86-4.86)
[2021-08-12 01:29] LABS: Albumin 3.4 g/dL (3.4-5.0); Bilirubin Total 0.3 mg/dL (0.2-1.0); Potassium 3.5 mmol/L (3.5-5.1); Protein, Total 6.4 g/dL (6.4-8.2)
[2021-08-12] MEDS ORDERED: NA CHLORIDE 0.9% 1,000 ML ONE (02:27)
[2021-08-12] MEDS ORDERED: ONDANSETRON 4 MG/2 ML VIAL ONE (02:27)
[2021-08-12] MEDS ORDERED: MORPHINE 4 MG/ML SYR ONE (02:27)
--- NOTE | 2021-08-12 05:32 | ER ---
Nurse's Notes [facility] Name: Britney Umana Age: 26 yrs Sex: Female : 1995 Arrival Date: 08/12/2021 Time: 00:03 Bed 9 Private MD: Diagnosis: Abdominal pain, Generalized;Constipation Presentation: 08/12 00:31 Chief complaint: Patient states: About 1 week ago, began with LUQ abdominal pain, lp1 states pain have become more severe, "I feel like there is a ball of something there when I touch it"; States now having neck stiffness; Denies fever. Coronavirus screen: At this time, the client does not indicate any symptoms associated with coronavirus-19. Ebola Screen: No symptoms or risks identified at this time. Initial Sepsis Screen: Does the patient meet any 2 criteria? No. Patient's initial sepsis screen is negative. Does the patient have a suspected source of infection? No. Patient's initial sepsis screen is negative. Risk Assessment: Do you want to hurt yourself or someone else? Patient reports no desire to harm self or others. Onset of symptoms was August 12, 2021. 00:31 Method Of Arrival: Ambulatory lp1 00:31 Acuity: CARLYLE 3 lp1 OCC THERAPY ASST: 00:34 LMP 08/05/2021 lp1 Historical: - Allergies: 00:33 No Known Allergies; lp1 - Home Meds: 00:33 Wellbutrin Oral [Active]; montelukast oral [Active]; lp1 - PMHx: 00:33 Asthma; Depression; lp1 - PSHx: 00:33 Tubal ligation; lp1 - Immunization history:: Adult Immunizations up to date, Client reports receiving the 1st dose of the Covid vaccine. - Social history:: Smoking status: Reported history of juuling and/or vaping. Screenin:04 Abuse screen: Denies threats or abuse. Nutritional screening: No deficits noted. bb Tuberculosis screening: No symptoms or risk factors identified. Fall Risk None identified. Assessment: 01:04 General: Appears in no apparent distress. uncomfortable, Behavior is calm, cooperative. bb Pain: Complains of pain in left upper quadrant. Neuro: Level of Consciousness is awake, alert, obeys commands, Oriented to person, place, time, situation. Cardiovascular: Capillary refill < 3 seconds Patient's skin is warm and dry. Respiratory: Respiratory effort is even, unlabored, Respiratory pattern is regular. GI: Reports upper abdominal pain. Derm: Skin is pink, warm \\T\\ dry. Musculoskeletal: Circulation, motion, and sensation intact. 02:05 Reassessment: pt resting quietly, eyes closed, resp unlabored. Awaiting Dr Josey cherry evaluation. 05:01 Reassessment: Patient is alert, oriented x 3, equal unlabored respirations, skin bb warm/dry/pink. pt resting quietly awaiting disposition. 05:45 Reassessment: Patient is alert, oriented x 3, equal unlabored respirations, skin bb warm/dry/pink. pt verbalized understanding of and agrees to plan of care discharge instructions given pt ambulated with steady gait to exit. Vital Signs: 00:31 BP 122 / 81; Pulse 92; Resp 18; Temp 98.9(O); Pulse Ox 100% on R/A; Weight 72.57 kg lp1 (R); Height 5 ft. 2 in. (157.48 cm); Pain 8/10; 02:34 BP 103 / 70; Pulse 80; Resp 16 S; Pulse Ox 99% on R/A; Pain 5/10; bb 05:02 BP 105 / 72; Pulse 62; Resp 16 S; Pulse Ox 98% on R/A; bb 00:31 Body Mass Index 29.26 (72.57 kg, 157.48 cm) lp1 ED Course: 00:03 Patient arrived in ED. bp1 00:31 Arm band placed on. lp1 00:33 Triage completed. lp1 00:48 Marty Dowling MD is Attending Physician. [facility] 01:00 Initial lab(s) drawn, by nc, sent to lab. Inserted saline lock: 20 gauge in right bb antecubital area, using aseptic technique. Blood collected. 01:04 Gilma Stephens RN is Primary Nurse. bb 01:04 Patient has correct armband on for positive identification. Placed in gown. Bed in low bb position. Call light in reach. Warm blanket given. 02:55 CT Abd/Pelvis - PO Contrast Only In Process Unspecified. EDMS 05:31 Pieter Schulz MD is Referral Physician. [facility] 05:45 No provider procedures requiring assistance completed. IV discontinued, intact, bb bleeding controlled, No redness/swelling at site. Pressure dressing applied. Administered Medications: 02:23 Drug: NS 0.9% 1000 ml Route: IV; Rate: 1000 ml; Site: right antecubital; bb 03:30 Follow up: IV Status: Completed infusion; IV Intake: 1000ml bb 02:24 Drug: Zofran (Ondansetron) 4 mg Route: IVP; Site: right antecubital; bb 03:30 Follow up: Response: No adverse reaction bb 02:27 Drug: morphine 4 mg Route: IVP; Infused Over: 4 mins; Site: right antecubital; bb 03:30 Follow up: Response: No adverse reaction; Pain is decreased bb Intake: 03:30 IV: 1000ml; Total: 1000ml. bb Outcome: 05:32 Discharge ordered by MD. iraheta 05:45 Discharged to home ambulatory. jo ann 05:45 Condition: stable 05:45 Discharge instructions given to patient, Instructed on discharge instructions, follow up and referral plans. medication usage, Demonstrated understanding of instructions, follow-up care, medications, Prescriptions given X 3. 05:46 Patient left the ED. bb Signatures: Dispatcher [employer] EDMS Gilma Stephens RN RN bb Simona Emery RN RN lp1 Amparo Gordon Maurice, MD MD [id number]
--- NOTE | 2021-08-12 05:32 | EDPHYS ---
Physician Documentation [facility] Name: Britney Umana Age: 26 yrs Sex: Female : 1995 Arrival Date: 08/12/2021 Time: 00:03 Bed 9 Private MD: ED Physician Marty Dowling HPI: 08/12 02:10 This 26 yrs old Female presents to ER via Ambulatory with complaints of mh7 Abdominal Pain. 02:10 The patient presents with abdominal pain in the left upper quadrant, in the left lower mh7 quadrant. Onset: The symptoms/episode began/occurred 1 week(s) ago. The symptoms radiate to the left flank. 02:10 Associated signs and symptoms: Pertinent positives: constipation, Pertinent negatives: mh7 nausea, vomiting, and diarrhea, anorexia, blood in stools, chest pain, diarrhea, dysuria, fever, headache, hematuria, nausea, palpitations, shortness of breath, vaginal discharge, vomiting, vomiting blood. 02:10 The symptoms are described as intermittent, vague, waxing/waning. Modifying factors: mh7 The symptoms are alleviated by nothing, the symptoms are aggravated by nothing. Severity of pain: At its worst the pain was moderate 3 day(s) ago, in the emergency department the pain has improved moderately. [employer]: 00:34 LMP 08/05/2021 lp1 Historical: - Allergies: 00:33 No Known Allergies; lp1 - Home Meds: 00:33 Wellbutrin Oral [Active]; montelukast oral [Active]; lp1 - PMHx: 00:33 Asthma; Depression; lp1 - PSHx: 00:33 Tubal ligation; lp1 - Immunization history:: Adult Immunizations up to date, Client reports receiving the 1st dose of the Covid vaccine. - Social history:: Smoking status: Reported history of juuling and/or vaping. ROS: 02:10 Constitutional: Negative for fever, chills, and weight loss, Eyes: Negative for injury, mh7 pain, redness, and discharge, ENT: Negative for injury, pain, and discharge, Neck: Negative for injury, pain, and swelling, Cardiovascular: Negative for chest pain, palpitations, and edema, Respiratory: Negative for shortness of breath, cough, wheezing, and pleuritic chest pain, : Negative for injury, bleeding, discharge, and swelling, MS/Extremity: Negative for injury and deformity, Skin: Negative for injury, rash, and discoloration, Neuro: Negative for headache, weakness, numbness, tingling, and seizure, Psych: Negative for depression, anxiety, suicide ideation, homicidal ideation, and hallucinations, Allergy/Immunology: Negative for hives, rash, and allergies, Endocrine: Negative for neck swelling, polydipsia, polyuria, polyphagia, and marked weight changes, Hematologic/Lymphatic: Negative for swollen nodes, abnormal bleeding, and unusual bruising. Exam: 02:10 Head/Face: Normocephalic, atraumatic. Eyes: Pupils equal round and reactive to light, mh7 extra-ocular motions intact. Lids and lashes normal. Conjunctiva and sclera are non-icteric and not injected. Cornea within normal limits. Periorbital areas with no swelling, redness, or edema. Neck: Trachea midline, no thyromegaly or masses palpated, and no cervical lymphadenopathy. Supple, full range of motion without nuchal rigidity, or vertebral point tenderness. No Meningismus. Chest/axilla: Normal chest wall appearance and motion. Nontender with no deformity. No lesions are appreciated. Cardiovascular: Regular rate and rhythm with a normal S1 and S2. No gallops, murmurs, or rubs. Normal PMI, no JVD. No pulse deficits. Respiratory: Lungs have equal breath sounds bilaterally, clear to auscultation and percussion. No rales, rhonchi or wheezes noted. No increased work of breathing, no retractions or nasal flaring. 02:10 Back: No spinal tenderness. No costovertebral tenderness. Full range of motion. Skin: Warm, dry with normal turgor. Normal color with no rashes, no lesions, and no evidence of cellulitis. MS/ Extremity: Pulses equal, no cyanosis. Neurovascular intact. Full, normal range of motion. Neuro: Awake and alert, GCS 15, oriented to person, place, time, and situation. Cranial nerves II-XII grossly intact. Motor strength 5/5 in all extremities. Sensory grossly intact. Cerebellar exam normal. Normal gait. Psych: Awake, alert, with orientation to person, place and time. Behavior, mood, and affect are within normal limits. 02:10 Constitutional: The patient appears in no acute distress, alert, awake, uncomfortable. 02:10 Abdomen/GI: Inspection: abdomen appears normal, Bowel sounds: normal, in all quadrants, Palpation: moderate abdominal tenderness, in the left lower quadrant, mass, is not appreciated, rebound tenderness, is not appreciated, voluntary guarding, is not appreciated, involuntary guarding, is not appreciated, no appreciated organomegaly, Indicators: McBurney's point is not tender, Hernandez's sign is negative, Rovsing's sign is negative, Obturator sign is negative, Psoas sign is negative, Liver: no appreciated palpable abnormalities, Hernia: not appreciated. Vital Signs: 00:31 BP 122 / 81; Pulse 92; Resp 18; Temp 98.9(O); Pulse Ox 100% on R/A; Weight 72.57 kg lp1 (R); Height 5 ft. 2 in. (157.48 cm); Pain 8/10; 02:34 BP 103 / 70; Pulse 80; Resp 16 S; Pulse Ox 99% on R/A; Pain 5/10; bb 05:02 BP 105 / 72; Pulse 62; Resp 16 S; Pulse Ox 98% on R/A; bb 00:31 Body Mass Index 29.26 (72.57 kg, 157.48 cm) lp1 MDM: 05:25 Differential diagnosis: bowel obstruction, Ectopic , non-specific abd pain, mh7 Ureterolithiasis, urinary tract infection. Data reviewed: vital signs, nurses notes, lab test result(s), CBC, electrolytes, urinalysis, UPT: negative radiologic studies, CT scan. Data interpreted: Pulse oximetry: on room air is 98 %. Interpretation: normal. Counseling: I had a detailed discussion with the patient and/or guardian regarding: the historical points, exam findings, and any diagnostic results supporting the discharge/admit diagnosis, lab results, radiology results, the need for outpatient follow up, to return to the emergency department if symptoms worsen or persist or if there are any questions or concerns that arise at home. Response to treatment: the patient's symptoms have resolved after treatment, the patient's blood pressure is in an acceptable range, mental status has returned to baseline, the patient no longer shows bradycardia, the patient is not short of breath, the patient is not tachycardic, the patient's pain is gone. 05:32 Patient medically screened. [facility] 08/12 00:46 Order name: Urine Dipstick-Ancillary; Complete Time: 01:51 EDMS 08/12 00:50 Order name: CBC with Diff; Complete Time: 01:51 bb 08/12 00:50 Order name: CMP; Complete Time: 01:51 bb 08/12 00:50 Order name: Lipase; Complete Time: 01:51 bb 08/12 00:51 Order name: Urine --Ancillary (enter results); Complete Time: 01:51 wm 08/12 02:18 Order name: CT Abd/Pelvis - PO Contrast Only [facility] 08/12 00:50 Order name: IV Saline Lock; Complete Time: 01:05 bb 08/12 00:50 Order name: Labs collected and sent; Complete Time: 01:05 bb Administered Medications: 02:23 Drug: NS 0.9% 1000 ml Route: IV; Rate: 1000 ml; Site: right antecubital; bb 03:30 Follow up: IV Status: Completed infusion; IV Intake: 1000ml bb 02:24 Drug: Zofran (Ondansetron) 4 mg Route: IVP; Site: right antecubital; bb 03:30 Follow up: Response: No adverse reaction bb 02:27 Drug: morphine 4 mg Route: IVP; Infused Over: 4 mins; Site: right antecubital; bb 03:30 Follow up: Response: No adverse reaction; Pain is decreased bb Disposition Summary: 08/12/21 05:32 Discharge Ordered Location: Home [facility] Problem: an ongoing problem [facility] Symptoms: have improved [facility] Condition: Stable [facility] Diagnosis - Abdominal pain, Generalized [facility] - Constipation [facility] Followup: [facility] - With: Private Physician - When: 1 - 2 days - Reason: Worsening of condition, Recheck today's complaints, Continuance of care, Re-evaluation by your physician Followup: [facility] - With: Pieter Schulz MD - When: 1 - 2 days - Reason: Worsening of condition, Recheck today's complaints Discharge Instructions: - Discharge Summary Sheet [facility] - Constipation, Adult, [id number] [facility] - Abdominal Pain, Adult, [id number] [facility] Forms: - Medication Reconciliation Form [facility] - Thank You Letter [facility] - Antibiotic Education [facility] - Prescription Opioid Use [facility] Prescriptions: - Dulcolax (bisacodyl) 10 mg Rectal suppository - insert 1 suppository by RECTAL route once daily as needed for constipation; 7 mh7 suppository; Refills: 0, Product Selection Permitted - Lactulose 10 gram/15 mL Oral Solution - take 30 milliliters by ORAL route once daily; 150 milliliter; Refills: 0, 7 Product Selection Permitted - dicyclomine 20 mg Oral Tablet - take 1 tablet by ORAL route 4 times per day As needed; 20 tablet; Refills: 0, 7 Product Selection Permitted Signatures: Dispatcher [employer] Gilma Bowen, OBIE RN bb Simona Emery RN RN lp1 Marty Dowling MD MD [facility]
[2021-08-12 05:53] VITALS: TEMP 98.9
[2021-08-12 05:56] VITALS: BP 105/72; O2SAT 98
--- NOTE | 2021-08-14 12:40 | RAD REPORT ---
EXAM DESCRIPTION: CT - Abdomen Pelvis W Contrast - 08/12/2021 6:51 am CLINICAL HISTORY: 26 years, Female, LLQ abdominal pain COMPARISON: None. TECHNIQUE: Contrast-enhanced images of the abdomen and pelvis were performed utilizing 5 mm slice th ickness at 5 mm interval reconstruction from the lung bases to the ischial tuberosities after the adm inistration of IV contrast. In addition multiplanar reformats in the coronal and sagittal plane were obtained and reviewed. This exam was performed according to our departmental dose-optimization protocol, which includes auto mated exposure control, adjustment of the mA and/or kV according to patient size and/or use of iterat tony reconstruction technique. FINDINGS: The lung bases demonstrate to be clear. The liver, gallbladder, pancreas, spleen and adrenal glands demonstrate to be unremarkable, no focal lesions are noted. The kidneys demonstrate normal uptake of contrast media. No evidence for nephrolithiasis and/or hydro nephrosis. Grossly the unopacified stomach, small bowel and large bowel demonstrate to be within normal limits. There is no evidence for bowel dilatation/or free air. There is mild fecal stasis. The appendix i s normal. The urinary bladder demonstrate to be unremarkable. The uterus is unremarkable. There are no adnexa l masses. The aorta demonstrate to be normal. There is no retroperitoneal lymphadenopathy. There is no evidence for ascites or and/or significant abnormal fluid collections. The rest of the soft tis roman and bony structures are within normal limits. IMPRESSION: Mild fecal stasis. Otherwise unremarkable CT scan of the abdomen and pelvis with contrast. Electronically signed by: Florian Spring MD 08/12/2021 3:15 AM CDT Due to temporary technical issues with the PACS/Fluency reporting system, reports are being signed by the in house radiologist without review as a courtesy to ensure prompt reporting. The interpreting r adiologist is fully responsible for the content of the report.
== END 2021-08-12 05:46 | disposition home or self-care (01) ==
LOC: ER 00:01
DX: K59.00 Constipation, unspecified (principal); F32.A Depression, unspecified; F41.9 Anxiety disorder, unspecified
CPT/HCPCS: 85025; 36415; 81025; 81003; 83690; 80053; 74177; Q9967; J7030; J2405; 96361; 96374; 96375; 99284

== ENCOUNTER 2021-09-12 21:06 | Observation (INO) | payer OTHER ==
--- OUTSIDE RECORDS SUMMARY | 2021-09-12 21:11 | XMS REPORT | Continuity of Care Document ---
:1995 Author Organization [facility] t Address [address] [place] [address] Care Team Providers Name Role Phone Sharpless Primary Care Physician Radiology Attending Clinician Unavailable RADIOLOGY Attending Clinician Unavailable RIDDLE Attending Clinician Unavailable [place] ACNP Attending Clinician Akinsipe WHCNP, C Attending Clinician AKINSIPE, C Attending Clinician Unavailable Renato MICHELLE Attending Clinician [...] Treatment Clinician Date Other Other Disease Active 2021- Univers general general 5-31 ity of counseling [place] and advice and advice 00 Me dical for for Branch contracept contracept tony tony management management Marijuana Marijuana Disease Active 2019-02 Uni vers use use 1-16 ity of 00:00: [place] [address] Medical Branch Tubal Tubal Disease Active 2019-02 Univers ligation ligation 0-20 ity of status status 00:00: [place] 00 Medical Branch 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 on vaginal on vaginal Repeat cytology cytology Pap Smear in 2020. History of History of Disease Active U nivers depression depression 4-20 it y of 00:00: [place] [facility] History of History of Disease Active U nivers asthma asthma 4-20 ity of 00:: [place] [facility] History of History of Disease Active U nivers anxiety anxiety 4-20 ity of 00:: [place] [facility] Obesity Obesity Disease Active Univers (BMI (BMI 4-11 ity of 30-39.9) 30-39.9) 00:00: [place] [facility] Rubella Rubella Disease Active Overview: Univ ers non-immune non-immune 02-19 Formattin ity of status, status, 00:00: g of this [place] antepartum antepartum 00 note Me dical might be Branch different from the original. Address in Postpartu m ( 0 Maternal Maternal Disease Active Overview: Un juan jose varicella, varicella, 02-19 Formattin ity of non-immune non-immune 00:00: g of this [place] 00 note Medical might be Branch different from the original. Address in Postpartu m. Left Left Disease Active 2016-02 Overview: Univer s breast breast 03-19 Formattin ity of mass mass 00:00: g of this [place] note is Medical different Branch from the [...] Active Univers ALLERGIE Class ity of S [facility] [place] Social History Social Habit Start Date Stop Date Quantity Comments Source History SDOH [facility] Hospital History SDOH [facility] St[facility] Dr[facility] Hospit al History SDOH [facility] Exposure to 2021-08-20 2021-08-30 Not sure University SARS-CoV-2 (event) 00:00:00 16:19:00 [facility] [place] Alcohol intake 2021-08-20 2021-08-20 0 /d University of 00:00:00 00:00:00 [facility] [place] Cigarettes smoked 2021-07-18 2021-07-18 Univers ity of current (pack per 00:00:00 00:00:00 [place] ) - Reported Branch Cigarette 2021-07-18 2021-07-18 University of pack-years 00:00:00 00:00:00 [facility] [place] Tobacco use and 2021-07-18 2021-07-18 Smokeless Universit y of exposure 00:00:00 00:00:00 tobacco non-user [facility] dical Branch History SDOH 2019-08-18 2019-08-18 1 [facility] Frequency 00:00:00 00:00:00 Hospita l Tobacco Comment 2019-06-08 2019-06-08 1-2 cig less Univers ity of 00:00:00 00:00:00 than a day per [facility] Branch History of tobacco 2013-01-17 2018-01-06 Cigarette Smoker University of use 00:00:00 00:00:00 [facility] [place] Sex Assigned At [birth year] Universit y of 00:00:00 00:00:00 [facility] [place] Smoking Status Start Date Stop Date Source Ex-smoker 2021-07-18 00:00:00 2021-07-18 00:00:00 Universi ty of [facility] [place] Never smoked tobacco [facility] Current every day 2016-01-05 00:00:00 [facility] Medical smoker Center Medications Ordered Filled Start Stop Current Ordering Indication Dosage Frequency Signature Comments Components Source Medication Medication Date Date Medication? Clinician (SIG) Name Name albuterol Yes [id number] 2{puff} Inhale 2 Univers 90 7-03 Puffs ity of mcg/actuati 00:00: every 4 [place] as on inhaler 00 (four) Medical hours as Branch needed for Wheezing or Shortness of Breath. albuterol Yes [id number] 2{puff} Inhale 2 Univers 90 7-03 Puffs ity of mcg/actuati 00:00: every 4 [place] as on inhaler 00 (four) Medical hours as Branch needed for Wheezing or Shortness of Breath. albuterol Yes [id number] 2{puff} Inhale 2 Univers 90 7-03 Puffs ity of mcg/actuati 00:00: every 4 [place] as on inhaler 00 (four) Medical hours as Branch needed for Wheezing or Shortness of Breath. metroNIDAZO Yes [id number] 500mg Take 1 Univers LE 500 mg 6-02 tablet by ity o f tablet 00:00: mouth 2 [place] 00 (two) Medical times Branch daily. metroNIDAZO Yes [id number] 500mg Take 1 Univers LE 500 mg 6-02 tablet by ity o f tablet 00:00: mouth 2 [place] 00 (two) Medical times Branch daily. metroNIDAZO Yes [id number] 500mg Take 1 Univers LE 500 mg 6-02 tablet by ity o f tablet 00:00: mouth 2 [place] 00 (two) Medical times Branch daily. metroNIDAZO Yes [id number] 500mg Take 1 Univers LE 500 mg 6-02 tablet by ity o f tablet 00:00: mouth 2 [place] 00 (two) Medical times Branch daily. terconazole 2021- Yes [id number] 80mg Insert 1 Univers 80 mg 6-02 06-06 Suppositor ity of vaginal 00:00: 04:59 y into [place] suppository 00 :00 vagina at [facility] bedtime Branch for 3 days. chlorphenir 2020-02 Yes [id number] 4mg Take 1 Univers amine 4 mg 0-06 tablet by ity of tablet 00:00: mouth [place] 00 every 6 Medical (six) Branch hours as needed for Allergies or Runny nose. calcium/mag 2020-02 Yes [id number] 1{each} Take 1 Univers nesium/zinc 0-06 Each by ity o f (CALCIUM-MA 00:00: mouth [place] GNESUIUM-ZI 00 daily. Medica l [place]) Branch 333-133-5 mg Tab benzonatate 2020-02 Yes [id number] 100mg Take 1 Univers 100 mg 0-06 capsule by ity of capsule 00:00: mouth 3 [place] 00 (three) Medical times Branch daily as needed for Cough. chlorphenir 2020-02 Yes [id number] 4mg Take 1 Univers amine 4 mg 0-06 tablet by ity of tablet 00:00: mouth [place] 00 every 6 Medical (six) Branch hours as needed for Allergies or Runny nose. calcium/mag 2020-02 Yes [id number] 1{each} Take 1 Univers nesium/zinc 0-06 Each by ity o f (CALCIUM-MA 00:00: mouth [place] GNESUIUM-ZI 00 daily. [facility]) Branch 333-133-5 mg Tab benzonatate 2020-02 Yes [id number] 100mg Take 1 Univers 100 mg 0-06 capsule by ity of capsule 00:00: mouth 3 [place] 00 (three) Medical times Branch daily as needed for Cough. chlorphenir 2020-02 Yes [id number] 4mg Take 1 Univers amine 4 mg 0-06 tablet by ity of tablet 00:00: mouth [place] 00 every 6 Medical (six) Branch hours as needed for Allergies or Runny nose. calcium/mag 2020-02 Yes [id number] 1{each} Take 1 Univers nesium/zinc 0-06 Each by ity o f (CALCIUM-MA 00:00: mouth [place] GNESUIUM-ZI 00 daily. Medica l [place]) Branch 333-133-5 mg Tab benzonatate 2020-02 Yes [id number] 100mg Take 1 Univers 100 mg 0-06 capsule by ity of capsule 00:00: mouth 3 [place] 00 (three) Medical times Branch daily as needed for Cough. chlorphenir 2020-02 Yes [id number] 4mg Take 1 Univers amine 4 mg 0-06 tablet by ity of tablet 00:00: mouth [place] 00 every 6 Medical (six) Branch hours as needed for Allergies or Runny nose. calcium/mag 2020-02 Yes [id number] 1{each} Take 1 Univers nesium/zinc 0-06 Each by ity o f (CALCIUM-MA 00:00: mouth [place] GNESUIUM-ZI 00 daily. Medica l [place]) Branch 333-133-5 mg Tab benzonatate 2020-02 Yes [id number] 100mg Take 1 Univers 100 mg 0-06 capsule by ity of capsule 00:00: mouth 3 [place] 00 (three) Medical times Branch daily as needed for Cough. chlorphenir 2020-02 Yes [id number] 4mg Take 1 Univers amine 4 mg 0-06 tablet by ity of tablet 00:00: mouth [place] 00 every 6 Medical (six) Branch hours as needed for Allergies or Runny nose. calcium/mag 2020-02 Yes [id number] 1{each} Take 1 Univers nesium/zinc 0-06 Each by ity o f (CALCIUM-MA 00:00: mouth [place] GNESUIUM-ZI 00 daily. Medica l [place]) Branch 333-133-5 mg Tab benzonatate 2020-02 Yes [id number] 100mg Take 1 Univers 100 mg 0-06 capsule by ity of capsule 00:00: mouth 3 [place] 00 (three) Medical times Branch daily as needed for Cough. ciprofloxac Yes [id number] 500mg Take 1 Univers in HCl 500 8-17 tablet by ity of mg tablet 00:00: mouth 2 [place] 00 (two) Medical times Branch daily. metroNIDAZO Yes [id number] 500mg Take 1 Univers LE 500 mg 8-17 tablet by ity o f tablet 00:00: mouth 2 [place] 00 (two) Medical times Branch daily. ondansetron Yes [id number] 4mg Take 1 Univers 4 mg 8-17 tablet by ity of disintegrat 00:00: mouth [place] ing tablet 00 every 8 Medica l (eight) Branch hours as needed for Nausea and Vomiting (N/V). ciprofloxac Yes [id number] 500mg Take 1 Univers in HCl 500 8-17 tablet by ity of mg tablet 00:00: mouth 2 [place] 00 (two) Medical times Branch daily. metroNIDAZO Yes [id number] 500mg Take 1 Univers LE 500 mg 8-17 tablet by ity o f tablet 00:00: mouth 2 [place] 00 (two) Medical times Branch daily. ondansetron 2021-0 Yes [id number] 4mg Take 1 Univers 4 mg 8-17 tablet by ity of disintegrat 00:00: mouth [place] ing tablet 00 every 8 Medica l (eight) Branch hours as needed for Nausea and Vomiting (N/V). ciprofloxac 2021-0 Yes [id number] 500mg Take 1 Univers in HCl 500 8-17 tablet by ity of mg tablet 00:00: mouth 2 (two) Medical times Branch daily. metroNIDAZO 2021-0 Yes [id number] 500mg Take 1 Univers LE 500 mg 8-17 tablet by ity o f tablet 00:00: mouth 2 (two) Medical times Branch daily. ondansetron 2021-0 Yes [id number] 4mg Take 1 Univers 4 mg 8-17 tablet by ity of disintegrat 00:00: mouth [place] ing tablet 00 every 8 Medica l (eight) Branch hours as needed for Nausea and Vomiting (N/V). ciprofloxac 1-0 Yes [id number] 500mg Take 1 Univers in HCl 500 8-17 tablet by ity of mg tablet 00:00: mouth (two) Medical times Branch daily. metroNIDAZO 2021-0 Yes [id number] 500mg Take 1 Univers LE 500 mg 8-17 tablet by ity o f tablet 00:00: mouth (two) Medical times Branch daily. ondansetron 1-0 Yes [id number] 4mg Take 1 Univers 4 mg 8-17 tablet by ity of disintegrat 00:00: mouth [place] ing tablet 00 every 8 Medica l (eight) Branch hours as needed for Nausea and Vomiting (N/V). ciprofloxac 1-0 Yes [id number] 500mg Take 1 Univers in HCl 500 8-17 tablet by ity of mg tablet 00:00: mouth 2 (two) Medical times Branch daily. metroNIDAZO 2021-0 Yes [id number] 500mg Take 1 Univers LE 500 mg 8-17 tablet by ity o f tablet 00:00: mouth 2 (two) Medical times Branch daily. ondansetron 2021-0 Yes [id number] 4mg Take 1 Univers 4 mg 8-17 tablet by ity of disintegrat 00:00: mouth [place] ing tablet 00 every 8 Medica l (eight) Branch hours as needed for Nausea and Vomiting (N/V). 2019-02 Yes [id number] 1{tbl} Take 1 Univers vitamin 1-18 tablet by ity of w/FA tablet 00:00: mouth [place] 00 daily. Medical Branch docusate 2019-02 Yes [id number] 240mg Take 1 U nivers calcium 240 1-18 capsule by it y of mg capsule 00:00: mouth [place] 00 daily as Medical needed for Branch Constipati on. ferrous 2019-02 Yes [id number] 325mg Take 1 Un juan jose sulfate 325 1-18 tablet by ity of mg (65 mg 00:00: mouth 2 [place] iron) 00 (two) Medical tablet times Branch daily. ibuprofen 2019-02 Yes [id number] 600mg Take 1 Univers 600 mg 1-18 tablet by ity of tablet 00:00: mouth [place] 00 every 6 Medical (six) Branch hours as needed (Pain). Take with food or milk. 2019-02 Yes [id number] 1{tbl} Take 1 Univers vitamin 1-18 tablet by ity of w/FA tablet 00:00: mouth [place] 00 daily. Medical Branch docusate 2019-02 Yes [id number] 240mg Take 1 U nivers calcium 240 1-18 capsule by it y of mg capsule 00:00: mouth once [place] 00 daily as Medical needed for Branch Constipati on. ferrous 2019-02 Yes [id number] 325mg Take 1 Un juan jose sulfate 325 1-18 tablet by ity of mg (65 mg 00:00: mouth 2 [place] iron) 00 (two) Medical tablet times Branch daily. ibuprofen 2019-02 Yes [id number] 600mg Take 1 Univers 600 mg 1-18 tablet by ity of tablet 00:00: mouth [place] 00 every 6 Medical (six) Branch hours as needed (Pain). Take with food or milk. 2019-02 Yes [id number] 1{tbl} Take 1 Univers vitamin 1-18 tablet by ity of w/FA tablet 00:00: mouth [place] 00 daily. Medical Branch docusate 2019-02 Yes [id number] 240mg Take 1 U nivers calcium 240 1-18 capsule by it y of mg capsule 00:00: mouth once [place] 00 daily as Medical needed for Branch Constipati on. ferrous 2019-02 Yes [id number] 325mg Take 1 Un juan jose sulfate 325 1-18 tablet by ity of mg (65 mg 00:00: mouth 2 [place] iron) 00 (two) Medical tablet times Branch daily. ibuprofen 2019-02 Yes [id number] 600mg Take 1 Univers 600 mg 1-18 tablet by ity of tablet 00:00: mouth [place] 00 every 6 Medical (six) Branch hours as needed (Pain). Take with food or milk. 2019-02 Yes [id number] 1{tbl} Take 1 Univers vitamin 1-18 tablet by ity of w/FA tablet 00:00: mouth [place] 00 daily. Medical Branch docusate 2019-02 Yes [id number] 240mg Take 1 U nivers calcium 240 1-18 capsule by it y of mg capsule 00:00: mouth once [place] 00 daily as Medical needed for Branch Constipati on. ferrous 2019-02 Yes [id number] 325mg Take 1 Un juan jose sulfate 325 1-18 tablet by ity of mg (65 mg 00:00: mouth 2 [place] iron) 00 (two) Medical tablet times Branch daily. ibuprofen 2019-02 Yes [id number] 600mg Take 1 Univers 600 mg 1-18 tablet by ity of tablet 00:00: mouth [place] 00 every 6 Medical (six) Branch hours as needed (Pain). Take with food or milk. 2019-02 Yes [id number] 1{tbl} Take 1 Univers vitamin 1-18 tablet by ity of w/FA tablet 00:00: mouth [place] 00 daily. Medical Branch docusate 2019-02 Yes [id number] 240mg Take 1 U nivers calcium 240 1-18 capsule by it y of mg capsule 00:00: mouth once [place] 00 daily as Medical needed for Branch Constipati on. ferrous 2019-02 Yes [id number] 325mg Take 1 Un juan jose sulfate 325 1-18 tablet by ity of mg (65 mg 00:00: mouth 2 [place] iron) 00 (two) Medical tablet times Branch daily. ibuprofen 2019-02 Yes [id number] 600mg Take 1 Univers 600 mg 1-18 tablet by ity of tablet 00:00: mouth [place] 00 every 6 Medical (six) Branch hours as needed (Pain). Take with food or milk. montelukast 2019-02 Yes Univer s 10 mg 1-09 ity of tablet 00:00: [place] 00 Medical Branch montelukast 2019-02 Yes Univer s 10 mg 1-09 ity of tablet 00:00: [place] [facility] montelukast 2019-02 Yes Univer s 10 mg 1-09 ity of tablet 00:00: [place] [facility] montelukast 2019-02 Yes Univer s 10 mg 1-09 ity of tablet 00:00: [place] [facility] montelukast 2019-02 Yes Univer s 10 mg -09 ity of tablet 00:00: [place] [facility] SERTraline 2019-02 Yes 50mg Take 50 mg U nivers 50 mg 0-18 by mouth ity of tablet 00:00: daily. [place] [facility] SERTraline 2019-02 Yes 50mg Take 50 mg U nivers 50 mg 0-18 by mouth ity of tablet 00:00: daily. [place] [facility] SERTraline 2019-02 Yes 50mg Take 50 mg U nivers 50 mg 0-18 by mouth ity of tablet 00:00: daily. [place] [facility] SERTraline 2019-02 Yes 50mg Take 50 mg U nivers 50 mg 0-18 by mouth ity of tablet 00:00: daily. [place] [facility] SERTraline 2019-02 Yes 50mg Take 50 mg U nivers 50 mg 0-18 by mouth ity of tablet 00:00: daily. [address] albuterol Yes 1{ampul Q6H Take 1 Met [...] [facility] AC[facility] 02:02: [facility]. Medical (DEPO-PROVE 03 Center RA ) BUDESONIDE/ 2015-02 Yes Inhale by [facility] FORMOTEROL 1-17 mouth via [facility] FUMARATE 02:02: inhaler. Medic al (SYMBICORT 03 Center [facility]) MEDROXYPROG 2015-[address] [facility] ESTERONE 1-17 intramuscu [facility] ACETATE 02:02: [facility]. Medical (DEPO-PROVE 03 Center RA IM) BUDESONIDE/ 2015-02 Yes Inhale by [facility] FORMOTEROL 1-17 mouth via [facility] FUMARATE 02:02: inhaler. Medic al (SYMBICORT 03 Center INH) PROAIR HFA Yes INHALE 2 Uni vers 90 6-22 PUFFS ity of mcg/actuati 00:00: EVERY 4-6 [place] on inhaler 00 HOURSAS Medica l NEEDED Branch PROAIR HFA Yes INHALE 2 Uni vers 90 6-22 PUFFS ity of mcg/actuati 00:00: EVERY 4-6 [place] on inhaler 00 HOURSAS Medica l NEEDED Branch PROAIR HFA 2022- No INHALE 2 Un juan jose 90 6-22 07-03 PUFFS ity of mcg/actuati 00:00: 00:00 EVERY 4-6 [place] on inhaler 00 :00 HOURSAS Medica l NEEDED Branch Immunizations Ordered Filled Immunization Date Status Comments [facility] e Immunization Name Name HPV9 2021-07-18 Completed University of 00:00:00 [facility] [place] HPV9 2021-07-18 Completed University of 00:00:00 [facility] [place] HPV9 2021-07-18 Completed University of 00:00:00 [facility] [place] HPV9 2021-07-18 Completed University of 00:00:00 [facility] [place] HPV9 2021-07-18 Completed University of 00:00:00 [facility] [place] HPV9 2020-01-06 Completed University of 00:00:00 [facility] [place] HPV9 2020-01-06 Completed University of 00:00:00 [facility] [place] HPV9 2020-01-06 Completed University of 00:00:00 [facility] [place] HPV9 2020-01-06 Completed University of 00:00:00 [facility] [place] HPV9 2020-01-06 Completed University of 00:00:00 [facility] [place] TDAP 2019-11-13 Completed University of 00:00:00 [facility] [place] Influenza Virus 2019-11-13 Completed Universit y of Vaccine Quad .5 mL 00:00:00 [facility] 6+ MO Branch TDAP 2019-11-13 Completed University of 00:00:00 [facility] [place] Influenza Virus 2019-11-13 Completed Universit y of Vaccine Quad .5 mL 00:00:00 [facility] IM 6+ MO Branch TDAP 2019-11-13 Completed University of 00:00:00 [facility] [place] Influenza Virus 2019-11-13 Completed Universit y of Vaccine Quad .5 mL 00:00:00 [facility] 6+ MO Branch TDAP 2019-11-13 Completed University of 00:00:00 [facility] [place] Influenza Virus 2019-11-13 Completed Universit y of Vaccine Quad .5 mL 00:00:00 [facility] IM 6+ MO Branch TDAP 2019-11-13 Completed University of 00:00:00 [facility] [place] Influenza Virus 2019-11-13 Completed Universit y of Vaccine Quad .5 mL 00:00:00 [facility] 6+ MO Branch TDAP 2018-07-01 Completed University of 00:00:00 [facility] [place] TDAP 2018-07-01 Completed University of 00:00:00 [facility] [place] TDAP 2018-07-01 Completed University of 00:00:00 [facility] [place] TDAP 2018-07-01 Completed University of 00:00:00 [facility] [place] TDAP 2018-07-01 Completed University of 00:00:00 [facility] [place] Influenza Virus 2017-12-10 Completed Universit y of Vaccine 00:00:00 [facility] [place] Influenza Virus 2017-12-10 Completed Universit y of Vaccine 00:00:00 [facility] [place] Influenza Virus 2017-12-10 Completed Universit y of Vaccine 00:00:00 [facility] [place] Influenza Virus 2017-12-10 Completed Universit y of Vaccine 00:00:00 [facility] [place] Influenza Virus 2017-12-10 Completed Universit y of Vaccine 00:00:00 [facility] [place] HPV9 2017-01-17 Completed University of 00:00:00 [facility] [place] HPV9 2017-01-17 Completed University of 00:00:00 [facility] [place] HPV9 2017-01-17 Completed University of 00:00:00 [facility] [place] HPV9 2017-01-17 Completed University of 00:00:00 [facility] [place] HPV9 2017-01-17 Completed University of 00:00:00 [facility] [place] Vital Signs Vital Name Observation Time Observation Value Comments Source Systolic blood 2021-08-20 18:45:00 125 mm[Hg] Univer sity of pressure [facility] [place] Diastolic blood 2021-08-20 18:45:00 88 mm[Hg] Unive rsity of pressure [facility] [place] Heart rate 2021-08-20 18:45:00 92 /min Universi ty of [facility] [place] Body temperature 2021-08-20 18:45:00 38 Robyn Univ ersity of [facility] [place] Respiratory rate 2021-08-20 18:45:00 16 /min Univ ersity of [facility] [place] Body height 2021-08-20 18:45:00 157.5 cm Universi ty of [facility] [place] Body weight 2021-08-20 18:45:00 71.668 kg Universi ty of [facility] [place] BMI 2021-08-20 18:45:00 28.90 kg/m2 Universi ty of [facility] [place] Oxygen saturation in 2021-08-20 18:45:00 97 /min [facility] Arterial blood by [facility] Pulse oximetry Branch Systolic blood 2021-07-18 13:35:00 127 mm[Hg] Univer sity of pressure [facility] [place] Diastolic blood 2021-07-18 13:35:00 74 mm[Hg] Unive rsity of pressure [facility] [place] Heart rate 2021-07-18 13:35:00 89 /min Universi ty of [facility] [place] Body temperature 2021-07-18 13:35:00 36.11 Robyn [facility] [place] Respiratory rate 2021-07-18 13:35:00 18 /min Univ ersity of [facility] [place] Body height 2021-07-18 13:35:00 157.5 cm Universi ty of [facility] [place] Body weight 2021-07-18 13:35:00 74.985 kg Universi ty of [facility] [place] BMI 2021-07-18 13:35:00 30.24 kg/m2 Universi ty [facility] [place] [facility] Procedures Procedure Date / Time Performed Performing Clinician [facility] e CONSENT/REFUSAL FOR 2021-08-20 18:40:46 [facility] Name Medical [place] TREATMENT GARDASIL 9 (HPV 9V) 2021-07-18 14:14:00 Trena James [facility] [place] VACCINE [facility] POCT URINALYSIS W/O 2021-07-18 13:36:00 [facility] of Care Planned Activity Planned Date Details Comments Source Future Scheduled 2020-12-22 COVID-[address] [facility] Test 05:07:22 (1) [code = COVID-19 VACCINE (1)] Future Scheduled 2020-12-22 [facility] 05:07:22 screening (procedure) [code = 884505475] Future Scheduled 2020-12-22 [facility] for [facility] Test 05:07:22 malignant neoplasm of cervix (procedure) [code = 079753819] Future Scheduled 2020-12-22 CHLAMYDIA SCREENING [facility] Test 05:07:22 [code = CHLAMYDIA SCREENING] Future Scheduled 2020-12-22 INFLUENZA VACCINE [facility] Test 05:07:22 [code = INFLUENZA VACCINE] Future Scheduled COVID-[address] [facility] Test (1) [code = COVID-19 VACCINE (1)] Future Scheduled [facility] screening (procedure) [code = 016298649] Future Scheduled [facility]ening for [facility] Test malignant neoplasm of cervix (procedure) [code = 847684901] Future Scheduled CH[facility]AMYDIA SCREENING [facility] [code = CHLAMYDIA SCREENING] Future Scheduled INFLUENZA VACCINE [facility] Test [code = INFLUENZA VACCINE] Encounters Start End Encounter Admission Attending Care Care Encounter Source Date/Time Date/Time Type Type Clinicians Facility Department ID 2021-08-30 2021-08-30 [facility] Radiology UNIVERSIT [id number] Univers 16:21:40 23:59:00 Encounter Y HEALTH [id number] ity [id number] [id number] [address] 2021-08-30 2021-08-30 Outpatient R RADIOLOGY [facility] [id number] Univers 16:19:52 16:20:00 ity of [facility] [place] 2021-08-30 2021-08-30 [facility] Radiology UNIVERSIT [id number] Univers 16:15:00 16:20:00 Encounter Y HEALTH [id number] ity [id number] [id number] [address] 2021-08-30 2021-08-30 Outpatient R RADIOLOGY [facility] [id number] Univers 00:00:00 00:00:00 [id number] ity of [facility] [place] 2021-08-20 2021-08-20 Emergency X [place], [facility] ERT [id number] Univers 13:53:00 14:36:00 [facility] [place] 2021-08-20 2021-08-20 Emergency [place], [facility] [id number] Univers 13:53:00 14:36:00 [facility] [id number] ity [facility] [id number] [place] [facility] [id number] [address] 2021-07-20 2021-07-20 Telephone Jacob [facility] [id number] Univers 00:00:00 00:00:00 Trena C FOUNDRY OPERATOR [id number] ity of [facility] [id number] Harshad as MATERNAL [phone] [facility] & CHILD [address] [place] [address] 2021-07-18 2021-07-18 Office Jacob, [facility] [id number] Univers 08:30:00 09:19:59 Visit Trena Alamo FOUNDRY OPERATOR [id number] ity of [facility] [id number] Harshad as MATERNAL [id number] [facility] & [address] 2021-07-18 2021-07-18 Outpatient R JACOB [facility] [id number] Univers 08:30:00 09:19:59 TRENA ity o f [facility] 2020-02-01 2020-02-01 [facility] [id number] 00:00:00 00:00:00 Trena C FOUNDRY OPERATOR [id number] [facility] [id number] MATERNAL [phone] & CHILD [address] [place] [address] 2020-01-04 2020-01-06 [facility] SHANNAN Gross [id number] [facility] 13:40:00 23:37:00 Encounter Sarah PIERRE [id number] [facility] [id number] 2020-01-05 2020-01-05 Anesthesia Jose Raines [id number] 06:00:00 13:07:00 Richard Francisco [id number] ANN [id number] 2019-08-25 2019-08-25 Outpatient [facility] [id number] [place] 00:00:00 00:00:[address] 2019-08-18 2019-08-20 Inpatient VICKY [facility] [id number] [place] 00:00:00 00:00:00 [place] [address] [...] code = 3257) Trace Negative - Negative General acute hospital coronavirus 2 RNA [Presence] in Respiratory specimen by JAYLA with probe [id number] 03:25:27 Test Item Value Reference Range Interpretation Comments SARS coronavirus 2 RNA Not detected Not-Detected [Presence] in Respiratory specimen by JAYLA with probe detection (test code = 20179-0)
[2021-09-13] MEDS ORDERED: KETOROLAC 30 MG/ML INJ ONE ×2 (00:43→15:42)
[2021-09-13] MEDS ORDERED: ONDANSETRON 4 MG/2 ML VIAL ONE ×2 (00:44→15:42)
[2021-09-13] MEDS ORDERED: NA CHLORIDE 0.9% 1,000 ML ONE (00:44)
[2021-09-13 01:08] LABS: Absolute Lymphocytes (CBC) 2.4 K/uL (0.7-4.9); Hematocrit 39.7 % (36.0-45.0); Lymphocytes % 20.5 % (15.3-44.8); MCV 87.1 fL (80-100); MPV 7.7 fL (7.6-11.3); RBC Red Blood Cell Count 4.55 M/uL (3.86-4.86)
[2021-09-13 01:14] LABS: Urine Blood Trace-intact (Negative); Urine Glucose Negative (Negative); Urine Protein 1+ (Negative); Urine Specific Gravity >=1.030 (1.005-1.030)
[2021-09-13 01:25] LABS: Albumin 4.1 g/dL (3.4-5.0); Bilirubin Total 0.6 mg/dL (0.2-1.0); Potassium 3.4 mmol/L (3.5-5.1); Protein, Total 7.3 g/dL (6.4-8.2)
[2021-09-13] MEDS ORDERED: MORPHINE 2 MG/ML SYR ONE (05:18)
--- NOTE | 2021-09-13 05:34 | P.HP ---
Certification for Inpatient Patient admitted to: Observation With expected LOS: <2 Midnights Patient will require the following post-hospital care: None Practitioner: I am a practitioner with admitting privileges, knowledge of patient current condition, hospital course, and medical plan of care. Services: Services provided to patient in accordance with Admission requirements found in Title 42 Section 412.3 of the Code of Federal Regulations Patient History Date of Service: 09/13/21 Reason for admission: Stercoral Colitis History of Present Illness: Patient is a 26 y/o F with depression and asthma who presented to the ED with complaints of diffuse abdominal pain and constipation. Patient reports that she has not had a BM in 5 days. Labs unremarkable. Manual disimpaction was attempted but failed in the ED. CT abd pelv showed bowel wall thickening of the rectosigmoid containing large stool with perirectal fat stranding suggesting stercoral colitis. call out operator general surgery was paged 3 times but did not answer. Dr Damon was then notified and recommended admission to hospitalist with general surgery consulting to perform sigmoidoscopy. Patient is admitted for further evaluation and treatment. Allergies No Known Allergies Allergy (Unverified 10/14/14 14:38) - Past Medical/Surgical History Diabetic: No -: Asthma -: Depression -: Tubal Ligation Psychosocial/ Personal History: Patient lives at home. - Family History Family History: Reviewed- Non-Contributory - Social History Smoking Status: Never smoker Alcohol use: Yes CD- Drugs: No Caffeine use: Yes Place of Residence: Home Review of Systems Gastrointestinal: Abdominal Pain, Constipation Physical Examination - Physical Exam General: Alert, In no apparent distress HEENT: Atraumatic, PERRLA, EOMI, Sclerae nonicteric Neck: Supple, 2+ carotid pulse no bruit, No LAD, Without JVD or thyroid abnormality Respiratory: Clear to auscultation bilaterally, Normal air movement Cardiovascular: Regular rate/rhythm, Normal S1 S2 Gastrointestinal: Normal bowel sounds, Non-distended, No tenderness Musculoskeletal: No tenderness Integumentary: No rashes Neurological: Normal speech, Normal strength at 5/5 x4 extr, Normal tone, Normal affect - Studies Laboratory Data (last 24 hrs) 09/13/21 00:50: Sodium 138, Potassium 3.4 L, BUN 7, Creatinine 0.77, Glucose 85, Total Bilirubin 0.6, AST 9 L, ALT 15, Alkaline Phosphatase 49, Lipase 37 L 09/13/21 00:50: WBC 11.9 H, Hgb 13.0, Hct 39.7, Plt Count 314 Assessment and Plan - Problems (Diagnosis) (1) Stercoral colitis Current Visit: Yes Status: Acute (2) Constipation Current Visit: Yes Status: Acute Qualifiers: Constipation type: unspecified constipation type Qualified Code(s): K59.00 - Constipation, unspecified (3) UTI (urinary tract infection) Current Visit: Yes Status: Acute Qualifiers: Urinary tract infection type: acute cystitis Hematuria presence: with he maturia Qualified Code(s): N30.01 - Acute cystitis with hematuria (4) Hypokalemia Current Visit: Yes Status: Acute - Plan -IV cipro and flagyl -General surgery consulted as patient will need sigmoidoscopy -NPO. Continue IVF -Monitor and replete electrolytes per protocol -Lovenox for VTE ppx -Full code Discharge Plan: Home Plan to discharge in: 24 Hours - Advance Directives Does patient have a Living Will: Yes Does patient have a Durable POA for Healthcare: No - Code Status/Comfort Care Code Status Assessed: Yes (Full) Critical Care: No Time Spent Managing Pts Care (In Minutes): 50
--- NOTE | 2021-09-13 05:55 | ER ---
Nurse's Notes [facility] Name: Britney Umana Age: 26 yrs Sex: Female : 1995 Arrival Date: 09/12/2021 Time: 21:08 Bed 17 Private MD: Diagnosis: Cetercoral Colitis;Constipation;Lower abdominal pain, unspecified;Stercoral Colitis Presentation: 09/12 21:41 Chief complaint: Diffuse abdominal pain x 2 days. Last BM was 5 days ago. Coronavirus hb screen: At this time, the client does not indicate any symptoms associated with coronavirus-19. Ebola Screen: No symptoms or risks identified at this time. Initial Sepsis Screen: Does the patient meet any 2 criteria? No. Patient's initial sepsis screen is negative. Does the patient have a suspected source of infection? No. Patient's initial sepsis screen is negative. Risk Assessment: Do you want to hurt yourself or someone else? Patient reports no desire to harm self or others. Onset of symptoms was September 12, 2021. 21:41 Method Of Arrival: Ambulatory hb 21:45 Acuity: CARLYLE 3 hb Historical: - Allergies: 21:43 No Known Allergies; hb - PMHx: 21:43 Asthma; Depression; hb - PSHx: 21:43 tubal ligation; hb - Immunization history:: Adult Immunizations up to date. - Social history:: Smoking status: Patient denies any tobacco usage or history of. Assessment: 09/13 01:33 General: Appears uncomfortable, Behavior is calm, cooperative. Pain: Complains of pain ll3 in Rectum Pain currently is 6 out of 10 on a pain scale. Neuro: Level of Consciousness is awake, alert, obeys commands, Oriented to person, place, time, situation. GI: Last BM was September 08, 2021. Bowel sounds present X 4 quads. Abd is soft and non tender X 4 quads. Reports constipation, Patient currently denies diarrhea, nausea, vomiting. Derm: Skin is pink, warm \T\ dry. 02:30 Reassessment: No changes from previously documented assessment. Patient and/or family ll3 updated on plan of care and expected duration. Pain level reassessed. Patient is alert, oriented x 3, equal unlabored respirations, skin warm/dry/pink. 03:39 Reassessment: No changes from previously documented assessment. Patient and/or family ll3 updated on plan of care and expected duration. Pain level reassessed. Patient is alert, oriented x 3, equal unlabored respirations, skin warm/dry/pink. Vital Signs: 09/12 21:41 BP 119 / 77; Pulse 106; Resp 16; Temp 97.8(TE); Pulse Ox 100% ; Weight 70.31 kg; Height hb 5 ft. 2 in. (157.48 cm); Pain 10/28; 09/13 01:33 BP 116 / 71; Pulse 70; Resp 16; Pulse Ox 100% on R/A; ll3 02:30 BP 101 / 68; Pulse 62; Resp 17; Pulse Ox 100% on R/A; ll3 03:38 BP 108 / 72; Pulse 64; Resp 16; Pulse Ox 99% on R/A; ll3 05:11 BP 121 / 76; Pulse 88; Resp 16; Pulse Ox 99% on R/A; ll3 06:36 BP 102 / 69; Pulse 63; Resp 17; Pulse Ox 99% on R/A; ll3 09/12 21:41 Body Mass Index 28.35 (70.31 kg, 157.48 cm) hb ED Course: 09/12 21:08 Patient arrived in ED. jj6 21:41 Arm band placed on. hb 21:45 Triage completed. hb 09/13 00:21 Ortega Soria MD is Attending Physician. kdr 00:52 Inserted saline lock: 20 gauge in right antecubital area, using aseptic technique. ke1 01:10 Chintan Acosta RN is Primary Nurse. ll3 02:08 CT Abd/Pelvis - IV Contrast Only In Process Unspecified. EDMS 04:41 Harley Monahan is Hospitalizing Provider. kdr Administered Medications: 00:52 Drug: NS 0.9% 1000 ml Route: IV; Rate: 1 bolus; Site: right antecubital; ke1 00:52 Drug: Zofran (Ondansetron) 4 mg Route: IVP; Site: right antecubital; ke1 00:52 Drug: Ketorolac 15 mg Route: IVP; Site: right antecubital; ke1 05:15 Drug: morphine 2 mg Route: IVP; Infused Over: 4 mins; Site: right antecubital; ll3 07:43 Drug: Mineral Oil Enema 60 ml Route: AR; jd3 Outcome: 04:44 Decision to Hospitalize by Provider. kdr 08:37 Patient left the ED. jd3 Signatures: Dispatcher [employer] EDMS Ortega Soria MD MD kdr Leda Eduardo, RN RN Barrett Lester RN RN jd3 Kamala Bean6 Chintan Acosta RN RN ll3 Damien Kennedy RN RN ke1 Corrections: (The following items were deleted from the chart) 03:38 02:30 BP 108 / 72; Pulse 64bpm; Resp 16bpm; Pulse Ox 99% RA; ll3 ll3
--- NOTE | 2021-09-13 05:55 | EDPHYS ---
Physician Documentation [facility] Name: Britney Umana Age: 26 yrs Sex: Female : 1995 Arrival Date: 09/12/2021 Time: 21:08 Bed 17 Private MD: ED Physician Ortega Soria HPI: 09/14 00:33 This 26 yrs old Female presents to ER via Ambulatory with complaints of kdr Abdominal Cramping, PT stating she is having a lot of retal pressure/pain. 00:33 Patient presents with 2 days of mild to moderate abdominal pain. She states that she kdr has had difficulty with bowel movements for several years. Her last bowel movement was 5 days ago. She has never been fully worked up for this issue. She otherwise is nontoxic-appearing.. Onset: The symptoms/episode began/occurred gradually, 2 day(s) ago. Severity of symptoms: At their worst the symptoms were moderate severe in the emergency department the symptoms are unchanged. The patient has experienced similar episodes in the past, chronically, but today's symptoms are worse. The patient has not recently seen a physician. Historical: - Allergies: 09/12 21:43 No Known Allergies; hb - PMHx: 21:43 Asthma; Depression; hb - PSHx: 21:43 tubal ligation; hb - Immunization history:: Adult Immunizations up to date. - Social history:: Smoking status: Patient denies any tobacco usage or history of. ROS: 09/14 00:33 Constitutional: Negative for fever, chills, and weight loss, Eyes: Negative for injury, kdr pain, redness, and discharge, ENT: Negative for injury, pain, and discharge, Neck: Negative for injury, pain, and swelling, Cardiovascular: Negative for chest pain, palpitations, and edema, Respiratory: Negative for shortness of breath, cough, wheezing, and pleuritic chest pain, Back: Negative for injury and pain, : Negative for injury, bleeding, discharge, and swelling, MS/Extremity: Negative for injury and deformity, Skin: Negative for injury, rash, and discoloration, Neuro: Negative for headache, weakness, numbness, tingling, and seizure activity. Psych: Negative for depression, anxiety, suicide ideation, homicidal ideation, and hallucinations, Allergy/Immunology: Negative for hives, rash, and allergies, Endocrine: Negative for neck swelling, polydipsia, polyuria, polyphagia, and marked weight changes, Hematologic/Lymphatic: Negative for swollen nodes, abnormal bleeding, and unusual bruising. Abdomen/GI: Positive for abdominal pain, constipation, abdominal cramps, of the right lower quadrant and left lower quadrant. Exam: 00:33 Constitutional: This is a well developed, well nourished patient who is awake, alert, kdr and in no acute distress. Head/Face: Normocephalic, atraumatic. Eyes: Pupils equal round and reactive to light, extra-ocular motions intact. Lids and lashes normal. Conjunctiva and sclera are non-icteric and not injected. Cornea within normal limits. Periorbital areas with no swelling, redness, or edema. Neck: Trachea midline, no thyromegaly or masses palpated, and no cervical lymphadenopathy. Supple, full range of motion without nuchal rigidity, or vertebral point tenderness. No Meningismus. Chest/axilla: Normal chest wall appearance and motion. Nontender with no deformity. No lesions are appreciated. Cardiovascular: Regular rate and rhythm with a normal S1 and S2. No gallops, murmurs, or rubs. Normal PMI, no JVD. No pulse deficits. Respiratory: Lungs have equal breath sounds bilaterally, clear to auscultation and percussion. No rales, rhonchi or wheezes noted. No increased work of breathing, no retractions or nasal flaring. Back: No spinal tenderness. No costovertebral tenderness. Full range of motion. Skin: Warm, dry with normal turgor. Normal color with no rashes, no lesions, and no evidence of cellulitis. MS/ Extremity: Pulses equal, no cyanosis. Neurovascular intact. Full, normal range of motion. Neuro: Awake and alert, GCS 15, oriented to person, place, time, and situation. Cranial nerves II-XII grossly intact. Motor strength 5/5 in all extremities. Sensory grossly intact. Cerebellar exam normal. Normal gait. Psych: Awake, alert, with orientation to person, place and time. Behavior, mood, and affect are within normal limits. 00:33 Abdomen/GI: Inspection: abdomen appears normal, Bowel sounds: diminished, in all quadrants, Palpation: soft, mild abdominal tenderness, in the suprapubic area, Rectal exam: rectal tone normal, hemorrhoid(s), external, without bleeding, mass, is not appreciated, swelling, is not appreciated, tenderness, that is mild, fecal impaction, is not appreciated, the exam is chaperoned by the nurse, Stool was appreciated in the rectal vault on digital inspection. Vital Signs: 09/12 21:41 BP 119 / 77; Pulse 106; Resp 16; Temp 97.8(TE); Pulse Ox 100% ; Weight 70.31 kg; Height hb 5 ft. 2 in. (157.48 cm); Pain 9/10; 09/13 01:33 BP 116 / 71; Pulse 70; Resp 16; Pulse Ox 100% on R/A; ll3 02:30 BP 101 / 68; Pulse 62; Resp 17; Pulse Ox 100% on R/A; ll3 03:38 BP 108 / 72; Pulse 64; Resp 16; Pulse Ox 99% on R/A; ll3 05:11 BP 121 / 76; Pulse 88; Resp 16; Pulse Ox 99% on R/A; ll3 06:36 BP 102 / 69; Pulse 63; Resp 17; Pulse Ox 99% on R/A; ll3 09/12 21:41 Body Mass Index 28.35 (70.31 kg, 157.48 cm) hb MDM: 04:44 Patient medically screened. kdr 09/14 00:36 Data reviewed: vital signs, nurses notes, lab test result(s), radiologic studies. kdr Counseling: I had a detailed discussion with the patient and/or guardian regarding: the historical points, exam findings, and any diagnostic results supporting the discharge/admit diagnosis, lab results, radiology results, the need for further work-up and treatment in the hospital. 00:37 ED course: Discussed the case with Dr. Damon who felt that the patient was appropriate kdr for management here in the [facility] for at [facility]. Subsequently spoke with Dr. Tovar who also agreed that patient can be managed here. Patient was admitted to the hospitalist service pending consult with surgery. 09/13 00:21 Order name: CBC with Diff; Complete Time: 04:55 kdr 09/13 00:21 Order name: CMP; Complete Time: 04:55 kdr 09/13 00:21 Order name: Lipase; Complete Time: 04:55 kdr 09/13 01:14 Order name: Urine Dipstick-Ancillary; Complete Time: 04:55 EDMS 09/13 05:05 Order name: SARS RAPID ll3 09/13 00:21 Order name: IV Saline Lock; Complete Time: 00:52 kdr 09/13 00:27 Order name: CT Abd/Pelvis - IV Contrast Only kdr 09/13 05:58 Order name: SARS-COV-2 Antigen Rapid; Complete Time: 06:12 EDMS 09/13 00:21 Order name: Labs collected and sent; Complete Time: 00:52 kdr 09/13 00:27 Order name: Urine Dipstick-Ancillary (obtain specimen); Complete Time: 01:10 kdr 09/13 00:27 Order name: Urine Test (obtain specimen); Complete Time: 01:10 kdr Administered Medications: 09/13 00:52 Drug: NS 0.9% 1000 ml Route: IV; Rate: 1 bolus; Site: right antecubital; ke1 00:52 Drug: Zofran (Ondansetron) 4 mg Route: IVP; Site: right antecubital; ke1 00:52 Drug: Ketorolac 15 mg Route: IVP; Site: right antecubital; ke1 05:15 Drug: morphine 2 mg Route: IVP; Infused Over: 4 mins; Site: right antecubital; ll3 07:43 Drug: Mineral Oil Enema 60 ml Route: AR; jd3 Disposition Summary: 09/13/21 04:44 Hospitalization Ordered Hospitalization Status: Observation kdr Provider: Harley Monahan Condition: Fair kdr Problem: new kdr Symptoms: are unchanged kdr Bed/Room Type: Standard kdr [facility]09[facility]13[facility]21 07:26[facility] Diagnosis - Cetercoral Colitis kdr - Constipation kdr - Lower abdominal pain, unspecified kdr - Stercoral Colitis kdr Forms: - Medication Reconciliation Form kdr - SBAR form kdr Signatures: Dispatcher [employer] EDMS Gaviota Salas Kevin, MD MD kdr Leda Eduardo RN RN hb Davies, Jonathon, RN RN jd3 Chintan Acosta RN RN ll3 Damien Kennedy RN RN ke1 Chelsea De La Garza PA PA sb3 Corrections: (The following items were deleted from the chart) 04:44 Telemetry/MedSurg (observation) kdr bd 04:44 kdr bd 07:34 07: 270A- [facility]
[2021-09-13 05:57] LABS: SARS-CoV-2 Antigen Rapid Res Negative (Negative)
[2021-09-13] MEDS ORDERED: ONDANSETRON 4 MG/2 ML VIAL IV PRN (06:31)
[2021-09-13] MEDS ORDERED: NA CHLORIDE 0.9% 1,000 ML IV SCH (06:31)
[2021-09-13 06:47] VITALS: BMI 28.3
[2021-09-13] MEDS ORDERED: MINERAL OIL ENEMA 135 ML BTL PR ONE (07:23)
[2021-09-13] MEDS ORDERED: ACETAMINOPHEN 500 MG TAB ONE (07:43)
[2021-09-13] MEDS: ACETAMINOPHEN 500 MG TAB PO PRN ×3 (07:48→19:28)
[2021-09-13] MEDS ORDERED: METRONIDAZOLE 500mg IVPB 500 MG/100 ML BAG IV SCH (09:00)
[2021-09-13] MEDS ORDERED: Ciprofloxacin 200mg IV 200 MG/100 ML IV.SOLN. IV SCH (09:00)
[2021-09-13] MEDS ORDERED: CIPROFLOXACIN 400mg IV 400 MG/200 ML BAG IV SCH (10:00)
[2021-09-13] MEDS: ENOXAPARIN 40 MG/0.4 ML SQ SCH (10:17)
--- NOTE | 2021-09-13 12:07 | RAD REPORT ---
EXAM DESCRIPTION: CT - Abdomen Pelvis W Contrast - 09/13/2021 6:52 am CLINICAL HISTORY: 26 years Female Abdominal pain, acute, nonlocalized TECHNIQUE: CT of the abdomen and pelvis using intravenous contrast. All CT scans at this facility us e dose modulation, iterative reconstruction, and/or weight based dosing when appropriate to reduce ra diation dose to as low as reasonably achievable. COMPARISON: 08/12/2021 FINDINGS: Lower chest: Lung bases are clear. Abdomen/Pelvis: Liver: No focal lesion. Gallbladder: No calcified stone. Pancreas: Within normal limits. Spleen: Within normal limits. Kidney: No stone or hydronephrosis. No focal lesion. Adrenal glands: Within normal limits. Vascular structures: Unremarkable. Bowel: Bowel wall thickening of the rectosigmoid containing large solid stool with perirectal fat str anding. Appendix: Normal. Peritoneum: No free fluid or free air. Lymph Nodes: No lymphadenopathy. Reproductive: Unremarkable. Urinary bladder: Unremarkable. Osseous structures: Unremarkable. Soft tissues: Unremarkable. IMPRESSION: Bowel wall thickening of the rectosigmoid containing large solid stool with perirectal f at stranding suggesting stercoral colitis. Electronically signed by: Brice De León MD 09/13/2021 3:04 AM CDT Due to temporary technical issues with the PACS/Fluency reporting system, reports are being signed by the in house radiologists without review as a courtesy to insure prompt reporting. The interpreting radiologist is fully responsible for the content of the report.
[2021-09-13 15:05] LABS: Urine Specific Gravity/Preg >1.030 (1.005-1.030)
[2021-09-13] MEDS ORDERED: propofoL 200 MG/20 ML VIAL IV ONE (15:10)
[2021-09-13] MEDS ORDERED: LIDOCAINE 2% MPF 5 ML VIAL ONE (15:10)
[2021-09-13] MEDS ORDERED: FENTANYL CITR 100 MCG/2 ML ONE (15:10)
[2021-09-13] MEDS ORDERED: BUPIVACA 0.5%/EPI 0.0005%/PF 30 ML VIAL ONE (15:12)
--- NOTE | 2021-09-13 15:16 | P.HP ---
Date of Service: 09/13/21 PC: This 26-year-old female presents with rectal pain for diagnosis and treatment HPC: Patient has a history of chronic constipation. Her last bowel movement was last . Has not had a bowel movement since then. Now feels a lot of pain discomfort and pressure in her pelvis. Is unable to go to the restroom. PSHx: Negative PMHx: 3 para 3 Social Hx: No known allergies Sys R: No cough, wheeze, shortness of breath. No chest pain or palpitations. Has a history of chronic constipation. Occasional recreational drug use with marijuana, and ecstasy. States she is also been having with acute hemorrhoids over the last few years. With bleeding, and painful episodes. O/E: Awake alert vital signs are stable HEENT: Within normal limits Chest: Chest movement equal bilaterally Abd: Soft, full feeling in the lower abdomen. Rectal exam was done in the ER last night, was unable to reach the stool. [place]: Intact Data: CT scan shows large stool stuck in the rectosigmoid junction with some reactive areas around it Impression: Fecal impaction with possible ulceration Plan: I will taken the operating room for an examination under anesthesia. We may also do a proctoscopy. The plan is to manually disimpact her. We will also be able to inspect the mucosa in that area with a rigid proctoscope. The possi bility of need for further surgeries and procedures was explained to the patient. The possibility of perforation of this portion of the bowel was outlined. She understands and wants us to proceed.
[2021-09-13] MEDS ORDERED: Ringers Lactate 1,000 ML IV ONE (15:25)
[2021-09-13] MEDS ORDERED: dexAMETHasone 10 MG/ML VIAL ONE (15:42)
--- NOTE | 2021-09-13 16:24 | P.OP ---
Preoperative diagnosis: stercoral ulcer Postoperative diagnosis: Fecal impaction Primary procedure: Examination under anesthesia Secondary procedure: Rigid sigmoidoscopy Other procedure(s): Fecal disimpaction Anesthesia: General Estimated blood loss: None Operative Technique: The patient brought the operating room and placed supine on the table. After the induction of adequate general anesthesia, there the perineum was dressed and draped in the usual manner. A vaginal exam was done first. We were able to feel the posterior wall of vagina there is a large fecal mass that was present high in the rectum. Applying gentle pressure we were able to gradually depress this mass downwards towards the anus itself. A second hand was now placed into the anal canal. We will from this we were able to disimpact this large amount of hard stool. At this point gloves were changed, and a sigmoidoscope was now taken. We were able to gently dilate up the lower portion of the rectum. Under direct vision we could pass the scope up to the rectosigmoid junction. Having achieved 25 cm on the rigid scope, and with a system present on the outside no other fecal matter was noted. We gradually withdrew the scope. The wall of the sigmoid rectal junction was inspected. The rectum itself was also visualized. We did not see any ulceration there was some mild inflammation in that area but no evidence of any trauma. At this point the again with a hand in the vagina, and another in the rectal canal were able to sweep out to remove all the remaining fecal matter. The repeat sigmoidoscope was done. Having clean the area out we were able to also irrigate the area with some saline. At the end of the procedure the patient was in a stable condition was sent to the recovery room. Complications: None Transferred to: Recovery Room Condition: Good
[2021-09-13 16:34] VITALS: O2SAT 100
[2021-09-13] MEDS ORDERED: MINERAL OIL 30 ML UCUP PO ONE (17:26)
--- NOTE | 2021-09-13 17:34 | P.PN ---
Date of Service: 09/13/21 Status post sigmoidoscopy with fecal evacuation by Dr. Tovar. Diagnosis: Fecal impaction Stercoral colitis. Plan: Antibiotics. Stool softeners and laxatives. Diet resumed. Possible discharge in a.m.
[2021-09-13] MEDS ORDERED: MAGNESIUM CITRATE 300 ML BOT PO SCH (18:00)
[2021-09-13] MEDS ORDERED: CIPROFLOXACIN HCL 500 MG TAB PO SCH (21:00)
[2021-09-13] MEDS ORDERED: metroNIDAZOLE 500 MG TABLET PO SCH (21:00)
[2021-09-14] MEDS: ENOXAPARIN 40 MG/0.4 ML SQ SCH (09:00)
[2021-09-14 09:16] VITALS: BP 108/62; TEMP 98
== END 2021-09-14 10:55 | disposition home or self-care (01) ==
LOC: ER 21:06 → ERHOLD 09-13 06:29 → 2ND-WC 09-13 08:15
PROVIDERS: ADMIT Internal Medicine; ATTEND Internal Medicine
PROC: 0DJD8ZZ Inspection of Lower Intestinal Tract, Via Natural or Artificial Opening Endoscopic (ICD-10-PCS; principal; 2021-09-13 14:45)
DX: K56.41 Fecal impaction (principal); K52.89 Other specified noninfective gastroenteritis and colitis; K64.9 Unspecified hemorrhoids; J45.909 Unspecified asthma, uncomplicated; F32.A Depression, unspecified; F12.90 Cannabis use, unspecified, uncomplicated; F16.90 Hallucinogen use, unspecified, uncomplicated; Z98.51 Tubal ligation status; Z20.822 Contact with and (suspected) exposure to COVID-19
CPT/HCPCS: 36415; 74177; 80053; 81003; 81025; 83690; 85025; 87811; 96374; 96375; 99284; G0378; J0744; J1100; J1650; J2270; J2405; J2704; J3010; J7030; J7120; Q9967

== ENCOUNTER 2021-12-11 17:17 | Emergency (ER) | payer OTHER ==
--- OUTSIDE RECORDS SUMMARY | 2021-12-11 17:22 | XMS REPORT | Continuity of Care Document ---
:1995 Author Organization [facility] t Address [address] [place] [address] [address]. [address] [place] [address] Care Team Providers Name Role Phone Sharpless Primary Care Physician DEEDEE COTTRELL Attending Clinician Unavailable DEEDEE COTTRELL Attending Clinician Unavailable Trena Cooper Attending Clinician [phone] TRENA WHITFIELD Attending Clinician Unavailable Julia Mcdermott Attending Clinician YAMILE THOMPSON Attending Clinician Unavailable YAMILE THOMPSON Attending Clinician Unavailable Radiology Attending Clinician Unavailable RADIOLOGY Attending Clinician Unavailable GORDO HO Attending Clinician Unavailable Gordo Geller Attending Clinician Doctor Unassigned, Guerra Attending Clinician Unavailable JULIA PABON Attending Clinician Unavailable DAYAN BANSAL Attending Clinician Unavailable Dayan Bansal DO Attending Clinician Brian Negron Attending Clinician Sarah Gross MD Attending Clinician Jose Raines MD Attending Clinician Deedee Francisco MD Attending Clinician YAMILE HIGGINS Attending Clinician Unavailable Yamile Murdock Attending Clinician Deedee Cottrell MD Attending Clinician Starr Aparicio MD Attending Clinician Lorenzo RAGLAND, Cherrie Telles Attending Clinician Unavailable Ultrasound, Rui-Mfm Attending Clinician Unavailable SATHYA LUNDBERG Attending Clinician Unavailable LISSETTE PERRY Attending Clinician Unavailable MD LISSETTE PERRY Attending Clinician Unavailable Magaly Veronica PA-C Attending Clinician DEEDEE COTTRELL Admitting Clinician Unavailable STARR APARICIO Admitting Clinician Unavailable Sarah Gross MD Admitting Clinician Deedee Cottrell MD Admitting Clinician Starr Aparicio MD Admitting Clinician LIDIA HOLLIDAY Admitting Clinician Unavailable MD LIDIA HOLLIDAY Admitting Clinician Unavailable Payers Payer Name Policy Type Policy Number Effective Date Expiration Date Porsha lloyd [place] [employer] [id number] 2019 HEALTH 00:00:00 [place]ID OF [place] [id number] 2019 00:00:00 Problems Condition Condition Condition Status Onset Resolution [...] vers use use 1-16 ity of 00:00: [address] Tubal Tubal Disease Active 2019-02 Univers ligation ligation 0-20 ity of status status 00:00: [address] 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 on vaginal on vaginal Repeat cytology cytology Pap Smear in 2020. History of History of Disease Active U nivers depression depression 4-20 it y of 00:00: [place] [facility] History of History of Disease Active U nivers asthma asthma 4-20 ity of 00:00: Medical Branch History of History of Disease Active U nivers anxiety anxiety 4-20 ity of 00:00: Medical Branch Obesity Obesity Disease Active Univers (BMI (BMI 4-11 ity of 30-39.9) 30-39.9) 00:00: Medical Branch Rubella Rubella Disease Active Overview: Univ ers non-immune non-immune 02-19 Formattin ity of status, status, 00:00: g of this [place] antepartum antepartum 00 note Me dical might be Branch different from the original. Address in Postpartu m ( 0 Maternal Maternal Disease Active Overview: Un juan jose varicella, varicella, 02-19 Formattin ity of non-immune non-immune 00:00: g of this [place] 00 note Medical might be Branch different from the original. Address in Postpartu m. Left Left Disease Active 2016-02 Overview: Univer s breast breast 03-19 Formattin ity of mass mass 00:00: g of this note is Medical different Branch from the original. LEFT BREAST: Solid mass on ultrasoun d at 2 o'clock. This is most likely a fibroaden lillie. Since it has grown in size over time histology using core biopsy is recommend ed at this time. ?OVERALL ASSESSMEN T - CATEGORY 4A - LOW SUSPICION END OF IMPRESSIO N Allergies, Adverse Reactions, Alerts This patient has no known allergies or adverse reactions. Social History Social Habit Start Date Stop Date Quantity Comments Source History SDOH [facility] Alcohol Comment Hospital History SDOH [facility] Alcohol Std Drinks Hospit al History SDOH [facility] Binge Hospital ASSERTION [facility] Exposure to 2021-10-20 2021-10-30 Not sure [facility] SARS-CoV-2 (event) 00:00:00 15:17:00 [facility] Cigarette 2021-10-30 2021-10-30 University of pack-years 00:00:00 00:00:00 [facility] Tobacco Comment 2021-10-30 2021-10-30 1-2 cig less Univers ity of 00:00:00 00:00:00 than a day per [facility] cecy wk Branch Tobacco use and 2021-10-30 2021-10-30 Smokeless Universit y of exposure 00:00:00 00:00:00 tobacco non-user [facility] dical [place] Alcohol intake 2019-08-18 2019-08-18 Lifetime [facility] 00:00:00 00:00:00 non-drinker Hospital (finding) History SDOH 2019-08-18 2019-08-18 1 [facility] Alcohol Frequency 00:00:00 00:00:00 Hospita l History of tobacco 2013-01-17 2018-01-06 Cigarette Smoker University of use 00:00:00 00:00:00 [facility] Cigarettes smoked 2016-01-05 2016-01-[address] [facility] current (pack per 00:00:00 00:00:00 Medical Center day) - Reported Sex Assigned At [birth year] [facility] 00:00:00 00:00:00 Hospital Smoking Status Start Date Stop Date Source Ex-smoker 2021-10-30 00:00:00 2021-10-30 00:00:00 Universi ty of [facility] Never smoked tobacco [facility] Current every day 2016-01-05 00:00:00 [facility] Medications Ordered Filled Start Stop Current Ordering Indication Dosage Frequency Signature Comments Components Source Medication Medication Date Date Medication? Clinician (SIG) Name Name metroNIDAZO Yes [id number] 500mg Take 1 Univers LE 500 mg 9-15 tablet by ity o f tablet 00:00: mouth in [place] [address] the Medical morning Branch and 1 tablet in the evening. terconazole 2021- Yes [id number] 80mg Insert 1 Univers 80 mg 11-02 Suppositor ity of vaginal 00:00: 04:59 y into [place] suppository 00 :00 vagina at [facility] bedtime Branch for 3 days. albuterol Yes [id number] 2{puff} Inhale 2 Univers 90 7-03 Puffs ity of mcg/actuati 00:00: every 4 Harshad as on inhaler 00 (four) Medical hours as Branch needed for Wheezing or Shortness of Breath. metroNIDAZO Yes [id number] 500mg Take 1 Univers LE 500 mg 6-02 tablet by ity o f tablet 00:00: mouth 2 [place] 00 (two) Medical times Branch daily. chlorphenir 2020-02 Yes [id number] 4mg Take 1 Univers amine 4 mg 0-06 tablet by ity of tablet 00:00: mouth [place] 00 every 6 Medical (six) Branch hours as needed for Allergies or Runny nose. calcium/mag 2020-02 Yes [id number] 1{each} Take 1 Univers nesium/zinc 0-06 Each by ity o f (CALCIUM-MA 00:00: mouth [place] GNESUIUM-ZI 00 daily. Medica l [place]) Branch 333-133-5 mg Tab benzonatate 2020-02 Yes [id number] 100mg Take 1 Univers 100 mg 0-06 capsule by ity of capsule 00:00: mouth 3 [place] 00 (three) Medical times Branch daily as needed for Cough. ciprofloxac Yes [id number] 500mg Take 1 Univers in HCl 500 8-17 tablet by ity of mg tablet 00:00: mouth 2 [place] 00 (two) Medical times Branch daily. metroNIDAZO Yes [id number] 500mg Take 1 Univers LE 500 mg 8-17 tablet by ity o f tablet 00:00: mouth 2 [place] 00 (two) Medical times Branch daily. ondansetron Yes [id number] 4mg Take 1 Univers 4 mg 8-17 tablet by ity of disintegrat 00:00: mouth [place] ing tablet 00 every 8 Medica l (eight) Branch hours as needed for Nausea and Vomiting (N/V). 2019-02 Yes [id number] 1{tbl} Take 1 Univers vitamin 1-18 tablet by ity of w/FA tablet 00:00: mouth [place] 00 daily. Medical Branch docusate 2019-02 Yes [id number] 240mg Take 1 U nivers calcium 240 1-18 capsule by it y of mg capsule 00:00: mouth [place] 00 daily as Medical needed for Branch Constipati on. ferrous 2019-02 Yes [id number] 325mg Take 1 Un juan j[place] sulfate 325 1-18 tablet by ity of mg (65 mg 00:00: mouth 2 [place] iron) 00 (two) Medical tablet times Branch daily. ibuprofen 2019-02 Yes [id number] 600mg Take 1 Univers 600 mg 1-18 tablet by ity of tablet 00:00: mouth [place] 00 every 6 Medical (six) Branch hours as needed (Pain). Take with food or milk. montelukast 2019-02 Yes Univer s 10 mg 1-09 ity of tablet 00:00: [place] [address] Medical Branch SERTraline 2019-02 Yes 50mg Take 50 mg U nivers 50 mg 0-18 by mouth ity of tablet 00:00: daily. [place] [facility] Branch albuterol Yes 1{ampul Q6H Take 1 [...] [facility]ukes ACETATE 02:02: larly. Medical (DEPO-PROVE 03 [facility]) MEDROXYPROG 2015-[address] [facility] ESTERONE 1-17 intramuscu [facility] ACETATE 02:02: larly. Medical (DEPO-PROVE 03 [facility]) BUDESONIDE/ 2015-02 Yes Inhale by [facility] FORMOTEROL 1-17 mouth via Luke s FUMARATE 02:02: inhaler. Medic al (SYMBICORT 03 [facility]) BUDESONIDE/ 2015-02 Yes Inhale by [facility] FORMOTEROL 1-17 mouth via Luke s FUMARATE 02:02: inhaler. Medic al (SYMBICORT 03 [facility]) MEDROXYPROG 2015-[address] [facility] ESTERONE 1-17 intramuscu [facility] ACETATE 02:02: larly. Medical (DEPO-PROVE 03 [facility]) BUDESONIDE/ 2015-02 Yes Inhale by [facility] FORMOTEROL 1-17 mouth via Luke s FUMARATE 02:02: inhaler. Medic al (SYMBICORT [address] [place] [address]) Immunizations Ordered Filled Immunization Date Status Comments [facility] e Immunization Name Name HPV9 2021-07-18 Completed University of 00:00:00 [facility] HPV9 2020-01-06 Completed University of 00:00:00 [facility] TDAP 2019-11-13 Completed University of 00:00:00 [facility] Influenza Virus 2019-11-13 Completed Universit y of Vaccine Quad .5 mL 00:00:00 [facility] 6+ MO [place] TDAP 2018-07-01 Completed University of 00:00:00 [facility] Influenza Virus 2017-12-10 Completed Universit y of Vaccine 00:00:00 [facility] HPV9 2017-01-17 Completed University of 00:00:00 [facility] Procedures This patient has no known procedures. Plan of Care Planned Activity Planned Date Details Comments Source Future Scheduled 2021-10-30 HEPATITIS B VACCINES Met [facility] Test 15:10:41 (1 of 3 - 3-dose series) [code = HEPATITIS B VACCINES (1 of 3 - 3-dose series)] Future Scheduled 2021-10-30 COVID-19 VACCINE (#1) [facility] Test 15:10:41 [code = COVID-19 VACCINE (#1)] Future Scheduled 2021-10-30 Hepatitis C screening [facility] Test 15:10:41 (procedure) [code = 392382839] Future Scheduled 2021-10-30 Screening for [facility] Test 15:10:41 malignant neoplasm of cervix (procedure) [code = 762872726] Future Scheduled 2021-10-30 [facility]ening for [facility] Test 15:10:41 Chlamydia trachomatis (procedure) [code = 750415052] Future Scheduled 2021-10-30 INFLUENZA VACCINE Method t Hospital Test 15:10:41 [code = INFLUENZA VACCINE] Future Scheduled 2020-12-22 COVID-19 VACCINE (1) [facility] Test 05:07:22 [code = COVID-19 VACCINE (1)] Future Scheduled 2020-12-22 [facility] 05:07:22 (procedure) [code = 444910487] Future Scheduled 2020-12-22 [facility] for [facility] Test 05:07:22 malignant neoplasm of cervix (procedure) [code = 207222350] Future Scheduled 2020-12-22 CHLAMYDIA SCREENING [facility] Test 05:07:22 [code = CHLAMYDIA SCREENING] Future Scheduled 2020-12-22 INFLUENZA VACCINE Method ist Hospital Test 05:07:22 [code = INFLUENZA VACCINE] Future Scheduled COVID-19 VACCINE (1) [facility] Test [code = COVID-19 VACCINE (1)] Future Scheduled Hepatitis C screening [facility] (procedure) [code = 442545472] Future Scheduled Screening for [facility] Test malignant neoplasm of cervix (procedure) [code = 095329606] Future Scheduled CHLAMYDIA SCREENING [facility] Test [code = CHLAMYDIA SCREENING] Future Scheduled INFLUENZA VACCINE Method ist Hospital Test [code = INFLUENZA VACCINE] Encounters Start End Encounter Admission Attending Care Care Encounter Source Date/Time Date/Time Type Type Clinicians Facility Department ID 2020-12-19 Emergency [facility] [id number] Univers 15:57:55 ity [facility] 2020-12-17 Emergency [facility] [id number] Univers 05:49[facility] [facility] 2020-12-17 Outpatient P [facility] IV[facility]TE [id number] Univers 00:52:27 ity [facility] 2020-12-17 Outpatient P EDEDEE COTTRELL [facility] [id number] Univers 00:52:[address] [facility] 2020-12-16 Outpatient P [facility] [id number] Univers 23:09:58 ity [facility] 2020-12-16 Outpatient P [facility] [place] [id number] Univers 23:06:[address] [facility] 2021-11-02 2021-11-02 [facility] [id number] Univers 00:00:00 00:00:00 Trena Alamo SMOKE AND FLAME SPECIALIST [id number] ity [facility] [id number] Harshad as MATERNAL [phone] Med ical & CHILD [address] [place] [address] 2021-10-30 2021-10-30 Outpatient R JACOB [facility] [id number] Univers 15:15:00 15:54:54 TRENA ity o f [facility] 2021-10-30 2021-10-30 [facility] [id number] Univers 15:15:00 15:54:54 Visit Trena Alamo SMOKE AND FLAME SPECIALIST [id number] ity of [facility] [id number] Harshad as MATERNAL [phone] [facility] ical & CHILD [address] [place] [address] 2021-10-30 2021-10-30 Telephone [facility] [id number] Univers 00:00:00 00:00:00 Julia Bill SMOKE AND FLAME SPECIALIST [id number] ity of [facility] [id number] Harsh[place] as MATERNAL [id number] [facility] ical & CHILD [address] [place] [address] 2021-10-26 2021-10-26 Outpatient R YAMILE THOMPSON [facility] [id number] Univers 09:00:00 09:00:00 YAMILE THOMPSON ity of [facility] 2021-08-30 2021-08-30 [facility] Radiology UNIVERSIT 1.2.840.114 [id number] Univers 16:21:40 23:59:00 Encounter Y HEALTH [id number] ity of CL[id number] [id number] [address] 2021-08-30 2021-08-30 Outpatient R RADIOLOGY [facility] [id number] Univers 16:19:52 16:20:00 ity of [facility] 2021-08-30 2021-08-30 Hospital Radiology UNIVERSIT [id number] Univers 16:15:00 16:20:00 Encounter Y HEALTH [id number] ity of CL[place] [id number] [address] 2021-08-20 2021-08-20 Emergency X RIDDLE, [facility] ERT [id number] Univers 13:53:00 14:36:00 CHRISTOPHER it y [facility] 2021-08-20 2021-08-20 Emergency [facility], [facility] [id number] Univers 13:53:00 14:36:00 [facility] [id number] ity [facility].2.7.2.686 [id number] [address] 2021-08-20 2021-08-20 Emergency X RIDDLE, [facility] ERT [id number] Univers 13:53:00 14:36:00 CHRISTOPHER it y [facility] 2021-07-20 2021-07-20 Telephone [facility] [id number] Univers 00:00:00 00:00:00 Trena Alamo SMOKE AND FLAME SPECIALIST [id number] ity [facility] 4.2.7.2.686 Harshad as MATERNAL [phone] [facility] [address] [place] [address] 2021-07-18 2021-07-18 [facility] [id number] Univers 08:30:00 09:19:59 Visit Trena Alamo SMOKE AND FLAME SPECIALIST [id number] ity [facility] 4.2.7.2.686 Harshad as MATERNAL [id number] [facility] & [address] 2021-07-18 2021-07-18 Outpatient R AKINSIPE, [facility] [id number] Univers 08:30:00 09:19:59 TRENA ity o [facility] 2021-07-18 2021-07-18 Outpatient R AKINSIPE, [facility] [id number] Univers 08:30:00 09:19:59 TRENA ity o f [facility] 2021-07-18 2021-07-18 Outpatient R AKINSIPE, [facility] [id number] Univers 08:30:00 08:30:00 TRENA heathery o [facility] 2021-07-18 2021-07-18 Orders Doctor SHANNAN 1.2.840.114 [id number] Univers 00:00:00 00:00:00 Only Unassigned, GABBY 350.1.13.10 ity of Guerra [facility] 4.2.7.2.686 Harshad as [phone] [facility] 009 Branch 2021-07-13 2021-07-13 [facility] 1.2.840.114 [id number] Univers 00:00:00 00:00:00 Trena Alamo SMOKE AND FLAME SPECIALIST [id number] ity of [facility] 4.2.7.2.686 Harshad as MATERNAL [id number] Med ical & CHILD [address] [place] [address] 2021-07-05 2021-07-05 Outpatient Landy [facility] [id number] Univers 13:45:00 13:45:00 JULIA noriega [facility] 2021-07-05 2021-07-05 Outpatient Landy [facility] [id number] Univers 13:45:00 13:45:00 ROMYAVANIKar noriega [facility] 2021-07-05 2021-07-05 Outpatient Landy [facility] [id number] Univers 13:45:00 13:45:00 HARITHAOVI noriega [facility] 2020-11-23 2020-11-23 Emergency X [facility] ERT [id number] Univers 08:36:00 11:26:00 DAYAN pena [facility] 2020-11-23 2020-11-23 Emergency X [facility] ERT [id number] Univers 08:36:00 11:26:00 DAYAN pena [facility] 2020-11-23 2020-11-23 Emergency [facility] [id number] Univers 08:36:00 11:26:00 Dayan Jones 350.1.13.10 i ty of [place] 4.2.7.2.686 [facility] [id number] [facility] 084 Branch 2020-11-23 2020-11-23 Emergency X [facility] ERT [id number] Univers 08:36:00 11:26:00 DAYAN pena [facility] 2020-10-05 2020-10-05 Telephone [facility] 1.2.840.114 [id number] Univers 00:00:00 00:00:00 [facility] [id number] it y of [place] 4.2.7.2.686 [facility] [id number] [address] ([facility]) 2020-10-03 2020-10-04 Emergency [facility] [id number] Univers 21:02:00 15:37:00 Brian [place] 350.1.13.10 i ty of [place] 4.2.7.2.686 [facility] [id number] [place] 340714 [place] 2020-10-03 2020-10-03 Orders Doctor SHANNAN 1.2.840.114 [id number] Univers 00:00:00 00:00:00 Only Unassigned, GABBY 350.1.13.10 ity of Guerra [facility] 4.2.7.2.686 Harshad as [id number] [facility] 009 [place] 2020-06-02 2020-06-02 Outpatient R [facility] [id number] Univers 13:00:00 13:00:00 ity of [facility] 2020-02-01 2020-02-01 Telephone [facility] 1.2.840.114 [id number] 00:00:00 00:00:00 Trena Alamo SMOKE AND FLAME SPECIALIST 350.1.13.10 REGIONAL 4.2.7.2.686 MATERNAL [phone] & CHILD [address] [place] [address] 2020-02-01 2020-02-01 Telephone [facility] 1.2.840.114 [id number] Univers 00:00:00 00:00:00 Trena C SMOKE AND FLAME SPECIALIST 350.1.13.10 ity of [facility] 4.2.7.2.686 Harshad as MATERNAL [id number] Med ical & CHILD [address] [place] [address] 2020-01-29 2020-01-29 [facility] [id number] Univers 14:15:00 14:15:00 TRENA pena o f [facility] 2020-01-04 2020-01-06 [facility] SHANNAN Gross 1.2.840.114 [id number] 13:40:00 23:37:00 Encounter Sarahdamien PIERRE 350.1.13.10 [facility] 4.2.7.2.686 [id number] [facility] 2020-01-04 2020-01-06 [facility] SHANNAN Gross 1.2.840.114 [id number] Univers 13:40:00 23:37:00 Encounter Sarah PIERRE 350.1.13.10 ity of HOSPITAL 4.2.7.2.686 Harshad as [id number] [address] 2020-01-05 2020-01-05 Anesthesia Jose Raines 1.2.840.114 [id number] 06:00:00 13:07:00 Deedee Francisco 350.1.13.10 ANNEX 4.2.7.2.686 [id number] [facility] 2020-01-05 2020-01-05 Anesthesia Jose Raines 1.2.840.114 [id number] Univers 06:00:00 13:07:00 Deedee Francisco 350.1.13.10 ity [place] [id number] [address] 2020-01-05 2020-01-05 Outpatient Landy [facility] [id number] Univers 12:45:00 12:45:00 YAMILE pena [facility] 2019-12-29 2019-12-29 Routine Gisela [facility] [id number] Univers 08:17:52 09:01:51 Yamile Bell S[employer]KE AND FLAME SPECIALIST 350.1.13.10 i ty of Visit REGIONAL 4.2.7.2.686 Harshad as MATERNAL [id number] [facility] ical & CHILD [address] [place] [address] 2019-12-29 2019-12-29 Outpatient Landy [facility] [id number] Univers 08:15:00 08:15:00 YAMILE pena [facility] 2019-12-22 2019-12-22 Routine Gisela [facility] [id number] Univers 10:32:34 11:06:53 Yamile Bell S[employer]KE AND FLAME SPECIALIST 350.1.13.10 i ty of Visit [facility] 4.2.7.2.686 Harshad as MATERNAL [id number] Med ical & CHILD [address] [place] [address] 2019-12-22 2019-12-22 Outpatient R [facility] [id number] Univers 10:15:00 10:15:00 YAMILEDUDLEY pena [facility] 2019-12-22 2019-12-22 Telephone [facility] 1.2.840.114 [id number] Univers 00:00:00 00:00:00 Yamile Ray S[employer]KE AND FLAME SPECIALIST 350.1.13.10 it y of [facility] 4.2.7.2.686 Harshad as MATERNAL [id number] [facility] ica & CHILD [address] [place] [address] 2019-12-12 2019-12-12 [facility] 1.2.840.114 [id number] Univers 15:08:00 16:45:00 Encounter Deedee Jones 350.1.13.10 ity [facility] 4.2.7.2.686 [place] [facility] [id number] [address] 2019-12-12 2019-12-12 Outpatient P AUDELIADEEDEE Beebe [facility] [place] [id number] Univers 15:08:00 15:08:00 CHECODEEDEE OLIVEIRA [facility] 2019-12-08 2019-12-08 Routine [facility] [id number] Univers 15:43:10 16:10:28 Yamile Bell S[employer] AND FLAME SPECIALIST 350.1.13.10 i ty of Visit [facility] 4.2.7.2.686 Harshad as MATERNAL [id number] Med ical & CHILD [address] [place] [address] 2019-12-08 2019-12-08 [facility] [id number] Univers 15:45:00 15:45:00 YAMILE [facility] 2019-12-08 2019-12-08 [facility] 1.2.840.114 [id number] Univers 00:00:00 00:00:00 Julia Bill S[employer]KE AND FLAME SPECIALIST 350.1.13.10 ity of [facility] 4.2.7.2.686 Harshad as MATERNAL [id number] Med ical & CHILD [address] [place] [address] 2019-12-03 2019-12-03 [facility] Starr Aparicio [facility] 1.2.840.114 [id number] Univers 09:42:00 11:45:00 Encounter Karen 350.1.13.10 ity of [place] 4.2.7.2.686 [place] [id number] [facility] 083 [place] 2019-12-03 2019-12-03 Nurse SHANNAN [place] 1.2.840.114 [id number] Univers 00:00:00 00:00:00 Triage Cherrie Telles GABBY 350.1.13.10 i ty of [facility] 4.2.7.2.686 Harshad as [id number] [facility] 019 [place] 2019-11-27 2019-11-27 [facility] [id number] Univers 09:30:00 09:30:00 JULAI jackson [facility] 2019-11-13 2019-11-13 Routine [facility] 1.2.840.114 [id number] Univers 09:24:10 10:16:32 Julia Bill [employer]IST [id number] ity of Visit [facility] [id number] Harshad as MATERNAL [phone] [facility] ical & CHILD [address] [place] [address] 2019-11-13 2019-11-13 Outpatient Landy [facility] [id number] Univers 09:00:00 09:00:00 JULIA jackson [facility] 2019-11-13 2019-11-13 Orders Doctor [facility] 1.2.840.114 [id number] Univers 00:00:00 00:00:00 Only Unassigned, GABBY 350.1.13.10 ity of Guerra [facility] [id number] Harshad as [phone] [facility] [address] [place] 2019-11-10 2019-11-10 Outpatient Landy [facility] [id number] Univers 11:00:00 11:00:00 TRENA jackson [facility] 2019-09-09 2019-09-09 Outpatient Landy [facility] [id number] Univers 11:00:00 11:00:00 ROSHUNDA ity o f [facility] 2019-09-04 2019-09-04 Abstract Pepper [facility] 1.2.840.114 [id number] Univers 00:00:00 00:00:00 Lobitoa R [employer] SPECIALIST [id number] ity of REGIONAL [id number] Harshad as MATERNAL [phone] [facility] ical & CHILD [address] [place] [address] 2019-09-03 2019-09-03 Code Official Ultrasound, [place] [facility] 1.2 .840.114 [id number] Univers 13:01:48 14:18:52 Visit Sarah Gross [employer] SPECIALIST [id number] ity of REGIONAL [id number] Harshad as MATERNAL [phone] [facility] ical & CHILD [address] [facility] 2019-09-03 2019-09-03 Outpatient [facility] [id number] Univers 13:00:00 13:00:00 ity [facility] 2019-09-02 2019-09-02 Outpatient R [facility] [id number] Univers 15:30:00 15:30:00 HARITHAJALENNDA itcory o f [facility] 2019-09-01 2019-09-01 Outpatient R SATHYA [facility] [id number] Univers 14:15:00 14:15:[address] [facility] 2019-08-25 2019-08-25 Outpatient [facility] [id number] [place] 00:00:00 00:00:00 911 Method i 2019-08-18 2019-08-20 Inpatient [facility] [id number] 72 [place] 00:00:00 00:00:00 LISSETTE 011 Method i 2019-08-06 2019-08-06 [facility] 1.2.840.114 [id number] Univers 14:27:15 14:57:50 Julia R [employer] SPECIALIST [id number] ity of Visit REGIONAL [id number] Harshad as MATERNAL [phone] [facility] & CHILD [address] [place] [address] 2019-08-06 2019-08-06 [facility] [id number] Univers 14:30:00 14:30:00 ROMYNDA ity o f [facility] 2019-07-09 2019-07-09 Outpatient R [facility] [id number] Univers 13:00:00 13:00:00 ROMYNDA ity o f [facility] 2019-07-09 2019-07-09 [facility]ici [facility] 1.2.840.114 [id number] Univers 09:44:31 09:59:31 ne Visit Julia R [employer] SPECIALIST [id number] ity of [facility] [id number] Harshad as MATERNAL [phone] Med ical & CHILD [address] [place] [address] 2019-07-06 2019-07-06 [facility]phone [facility] [id number] Univers 00:00:00 00:00:00 Romynda R [employer] SPECIALIST [id number] ity of [facility] [id number] Harshad as MATERNAL [phone] Med ical & CHILD [address] [place] [address] 2019-06-25 2019-06-25 Orders Doctor SHANNAN 1.2.840.114 [id number] Univers 00:00:00 00:00:00 Only Unassigned, GABBY 350.1.13.10 ity of Guerra [facility] [id number] Harshad as [id number] [address] 2019-06-22 2019-06-22 Letter [facility] 1.2.840.114 [id number] Univers 00:00:00 00:00:00 (Out) Romynda R [employer] SPECIALIST [id number] ity of [facility] [id number] Harshad as MATERNAL [phone] Med ical & CHILD [address] [place] [address] 2019-06-22 2019-06-22 [facility]phone [facility] [id number] Univers 00:00:00 00:00:00 Roshunda R [employer] SPECIALIST [id number] ity of [facility] [id number] Harshad as MATERNAL [phone] Med ical & CHILD [address] [place] [address] 2019-06-11 2019-06-11 Telephone Pepper [facility] [id number] Univers 00:00:00 00:00:00 Rosjalennda R [employer] SPECIALIST 350.1.13.10 ity of [facility] [id number] Harshad as MATERNAL [phone] [facility] [address] [place] [address] 2019-06-08 2019-06-08 Initial Pepper [facility] 1.2.840.114 [id number] Univers 13:56:12 15:33:20 Rosjalennda R [employer] SPECIALIST [id number] ity of Visit [facility] [id number] Harshad as MATERNAL [id number] [facility] & CHILD [address] [place] [address] 2019-06-08 2019-06-08 Outpatient R [facility] [id number] Univers 14:15:00 14:15:00 ROSHUNDA ity o f [facility] 2019-06-08 2019-06-08 Orders Doctor SHANNAN 1.2.840.114 [id number] Univers 00:00:00 00:00:00 Only Unassigned, GABBY 350.1.13.10 ity of Guerra [facility] [id number] Harshad as [phone] [address] 2019-05-18 2019-05-18 Telephone Pepper [facility] [id number] Univers 00:00:00 00:00:00 Roshunda R [employer] SPECIALIST [id number] ity of [facility] [id number] Harshad as MATERNAL [phone] [facility] [address] [place] [address] 2018-09-24 2018-09-24 Routine Magaly Veronica [facility] 1.2.840.11 [id number] Univers 15:35:46 16:28:34 Deedee Cottrell 350.1.13 .10 ity of Visit [place] 4[place]2.7.2.686 [place] [phone] [place] [address] [place] [address] Results Test Description Test Time Test Comments Results Result Comments Source SARS coronavirus 2 RNA [Presence] in Respiratory speci men by 2019-08-20 03:25:27 JAYLA with probe detection Test Item Value Reference Range Interpretation Comme nts SARS coronavirus 2 RNA [Presence] in Respiratory Not detected Not-D etected specimen by JAYLA with probe detection (test code = 98456-1) ROBBIN GILL
[2021-12-11] MEDS ORDERED: ONDANSETRON 4 MG/2 ML VIAL ONE (17:37)
[2021-12-11] MEDS ORDERED: NA CHLORIDE 0.9% 1,000 ML ONE (17:37)
[2021-12-11 17:58] LABS: Absolute Lymphocytes (CBC) 2.3 K/uL (0.7-4.9); Hematocrit 36.3 % (36.0-45.0); Lymphocytes % 24.5 % (15.3-44.8); MCV 89.1 fL (80-100); MPV 7.5 fL (7.6-11.3); RBC Red Blood Cell Count 4.07 M/uL (3.86-4.86)
[2021-12-11 18:16] LABS: Albumin 3.4 g/dL (3.4-5.0); Bilirubin Total 0.4 mg/dL (0.2-1.0); Potassium 3.6 mmol/L (3.5-5.1); Protein, Total 6.3 g/dL (6.4-8.2)
--- NOTE | 2021-12-11 19:04 | RAD REPORT ---
EXAM DESCRIPTION: CT - Abdomen Pelvis W Contrast - 12/11/2021 6:35 pm CLINICAL HISTORY: Abdominal pain COMPARISON: 2020 TECHNIQUE: Computed axial tomography of the abdomen pelvis was obtained. 100 cc Isovue-300 was admin istered intravenously. Oral contrast was not requested which limits evaluation of bowel and appendix All CT scans are performed using dose optimization technique as appropriate and may include automated exposure control or mA/KV adjustment according to patient size. FINDINGS: The liver, spleen, pancreas, adrenal and kidneys appear unremarkable. There is no evidence of diverticulitis. The appendix is upper limits normal caliber. No adjacent stranding. 2 centimeter left ovarian cyst. The wall of the rectosigmoid colon is mildly to moderately thickened. IMPRESSION: Mild to moderate thickening of the wall of the rectosigmoid colon probably inflammatory
[2021-12-11 19:10] LABS: Urine Blood Negative (Negative); Urine Glucose Negative (Negative); Urine Protein Negative (Negative); Urine pH 6.5 (5.0-7.0)
[2021-12-11] MEDS ORDERED: MORPHINE 2 MG/ML SYR ONE (19:11)
--- NOTE | 2021-12-11 19:34 | EDPHYS ---
Physician Documentation [facility] Name: Britney Umana Age: 26 yrs Sex: Female : 1995 Arrival Date: 12/11/2021 Time: 17:20 Bed 20 Private MD: ED Physician Greg Renteria HPI: 12/11 18:16 This 26 yrs old Female presents to ER via Ambulatory with complaints of jl9 Abdominal Pain. Patient reports that she was seen here a few months ago for a similar issue. . 18:16 The patient presents with abdominal pain that is diffuse. Onset: The symptoms/episode jl9 began/occurred 1 week(s) ago. The symptoms do not radiate. Associated signs and symptoms: Pertinent positives: nausea, Pertinent negatives:. The symptoms are described as crampy, dull. Modifying factors: The symptoms are alleviated by nothing, the symptoms are aggravated by nothing. Severity of pain: in the emergency department the pain is a 2 / 10. The patient has experienced a previous episode. 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 - Social history:: Smoking status: Reported history of juuling and/or vaping. ROS: 18:17 Constitutional: Negative for fever, chills, and weight loss, Eyes: Negative for injury, jl9 pain, redness, and discharge, ENT: Negative for injury, pain, and discharge, Neck: Negative for injury, pain, and swelling, Cardiovascular: Negative for chest pain, palpitations, and edema, Respiratory: Negative for shortness of breath, cough, wheezing, and pleuritic chest pain. 18:17 Back: Negative for injury and pain, : Negative for injury, bleeding, discharge, and swelling, MS/Extremity: Negative for injury and deformity, Skin: Negative for injury, rash, and discoloration, Neuro: Negative for headache, weakness, numbness, tingling, and seizure, Psych: Negative for depression, anxiety, suicide ideation, homicidal ideation, and hallucinations, Allergy/Immunology: Negative for hives, rash, and allergies, Endocrine: Negative for neck swelling, polydipsia, polyuria, polyphagia, and marked weight changes, Hematologic/Lymphatic: Negative for swollen nodes, abnormal bleeding, and unusual bruising. 18:17 Abdomen/GI: Positive for abdominal pain, nausea. Exam: 18:17 Constitutional: This is a well developed, well nourished patient who is awake, alert, jl9 and in no acute distress. Head/Face: Normocephalic, atraumatic. Eyes: Pupils equal round and reactive to light, extra-ocular motions intact. Lids and lashes normal. Conjunctiva and sclera are non-icteric and not injected. Cornea within normal limits. Periorbital areas with no swelling, redness, or edema. ENT: Mucous membranes moist. Neck: Trachea midline, no thyromegaly or masses palpated, and no cervical lymphadenopathy. Supple, full range of motion without nuchal rigidity, or vertebral point tenderness. No Meningismus. Chest/axilla: Normal chest wall appearance and motion. Nontender with no deformity. No lesions are appreciated. Cardiovascular: Regular rate and rhythm with a normal S1 and S2. No gallops, murmurs, or rubs. Normal PMI, no JVD. No pulse deficits. Respiratory: Lungs have equal breath sounds bilaterally, clear to auscultation and percussion. No rales, rhonchi or wheezes noted. No increased work of breathing, no retractions or nasal flaring. 18:17 Back: No spinal tenderness. No costovertebral tenderness. Full range of motion. Skin: Warm, dry with normal turgor. Normal color with no rashes, no lesions, and no evidence of cellulitis. MS/ Extremity: Pulses equal, no cyanosis. Neurovascular intact. Full, normal range of motion. Neuro: Awake and alert, GCS 15, oriented to person, place, time, and situation. Cranial nerves II-XII grossly intact. Motor strength 5/5 in all extremities. Sensory grossly intact. Cerebellar exam normal. Normal gait. Psych: Awake, alert, with orientation to person, place and time. Behavior, mood, and affect are within normal limits. 18:17 Abdomen/GI: Inspection: abdomen appears normal, Bowel sounds: normal, Palpation: mild abdominal tenderness, in all quadrants. Vital Signs: 17:25 BP 136 / 78; Pulse 99; Resp 16; Temp 98.2; Pulse Ox 100% ; Weight 63.5 kg; Height 5 ft. vg1 2 in. (157.48 cm); Pain 8/10; 17:25 Body Mass Index 25.61 (63.50 kg, 157.48 cm) vg1 MDM: 17:30 Patient medically screened. jl9 18:18 Data reviewed: vital signs, nurses notes. jl9 19:33 Differential diagnosis: appendicitis, cholecystitis, Cholelithiasis. Counseling: I had jl9 a detailed discussion with the patient and/or guardian regarding: the historical points, exam findings, and any diagnostic results supporting the discharge/admit diagnosis, lab results, radiology results, the need for outpatient follow up, to return to the emergency department if symptoms worsen or persist or if there are any questions or concerns that arise at home. Response to treatment: the patient's symptoms have resolved after treatment. 12/11 17:31 Order name: CBC with Diff; Complete Time: 18:18 [facility] 12/11 17:31 Order name: CMP; Complete Time: 18:18 [facility] 12/11 17:31 Order name: Lipase; Complete Time: 18:18 [facility] 12/11 17:31 Order name: CT Abd/Pelvis - IV Contrast Only; Complete Time: 19:06 [facility] 12/11 19:10 Order name: Urine Dipstick-Ancillary; Complete Time: 19:31 EDMS 12/11 19:11 Order name: Urine --Ancillary (enter results); Complete Time: 19:57 wm 12/11 17:31 Order name: IV Saline Lock; Complete Time: 17:35 [facility] 12/11 17:31 Order name: Labs collected and sent; Complete Time: 17:35 [facility] 12/11 17:31 Order name: Urine Dipstick-Ancillary (obtain specimen); Complete Time: 19:06 [facility] 12/11 17:31 Order name: Urine Test (obtain specimen); Complete Time: 19:06 9 Administered Medications: 17:44 Drug: NS 0.9% 1000 ml Route: IV; Rate: 1 bolus; Site: right antecubital; ll1 19:14 Follow up: Response: No adverse reaction; IV Status: Completed infusion; IV Intake: ll1 1000ml 17:44 Drug: Zofran (Ondansetron) 4 mg Route: IVP; Site: right antecubital; ll1 19:14 Follow up: Response: No adverse reaction ll1 19:13 Drug: morphine 2 mg {Note: rass 0, pain 8/10.} Route: IVP; Infused Over: 4 mins; Site: ll1 right antecubital; 19:57 Follow up: Response: No adverse reaction; Marked relief of symptoms; Pain is decreased ll3 Disposition Summary: 12/11/21 19:34 Discharge Ordered Location: Home jl9 Condition: Stable jl9 Diagnosis - Abdominal pain, unspecified jl9 Followup: jl9 - With: Private Physician - When: 1 - 2 days - Reason: Recheck today's complaints, Continuance of care, Re-evaluation by your physician Discharge Instructions: - Discharge Summary Sheet jl9 - Abdominal Pain, Adult, [id number] jl9 Forms: - Medication Reconciliation Form jl9 - Thank You Letter jl9 - Antibiotic Education jl9 - Prescription Opioid Use jl9 Prescriptions: - ondansetron 8 mg Oral tablet,disintegrating - take 1 tablet by ORAL route every 8 hours As needed; 12 tablet; Refills: 0, jl9 Product Selection Permitted Addendum: 12/14/2021 07:04 Co-signature as Attending Physician, Greg Renteria MD. r n Signatures: Dispatcher [employer] EDGreg Rouse MD MD rn Garcia, Victoria RN RN vg1 Ata Cortes RN RN ll1 Florian Ha jl9 Chintan Acosta RN ll3
--- NOTE | 2021-12-11 19:34 | ER ---
Nurse's Notes [facility] Name: Britney Umana Age: 26 yrs Sex: Female : 1995 Arrival Date: 12/11/2021 Time: 17:20 Bed 20 Private MD: Diagnosis: Abdominal pain, unspecified Presentation: 12/11 17:25 Chief complaint: Patient states: ABD pain x1 week with nausea and constipation; stated vg1 used a suppository last night and was able to have a BM but 'wasn't much'. Denies vomiting/diarrhea. Coronavirus screen: Vaccine status: Patient reports receiving the 1st dose of the Covid vaccine. Client denies travel out of the [place] in the last 14 days. Ebola Screen: Patient negative for fever greater than or equal to 101.5 degrees Fahrenheit, and additional compatible Ebola Virus Disease symptoms Patient denies exposure to infectious person. Initial Sepsis Screen: Does the patient meet any 2 criteria? No. Patient's initial sepsis screen is negative. Does the patient have a suspected source of infection? No. Patient's initial sepsis screen is negative. Risk Assessment: Do you want to hurt yourself or someone else? Patient reports no desire to harm self or others. Onset of symptoms was December 04, 2021. 17:25 Method Of Arrival: Ambulatory 1 17:25 Acuity: CARLYLE 3 vg1 Triage Assessment: 17:28 General: Appears uncomfortable, Behavior is cooperative. Pain: Complains of pain in vg1 back and abdomen Pain currently is 8 out of 10 on a pain scale. GI: Abdomen is flat, non-distended, Reports constipation, nausea, Patient currently denies diarrhea, vomiting. 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 - Social history:: Smoking status: Reported history of juuling and/or vaping. Screenin:45 Abuse screen: Denies threats or abuse. Nutritional screening: No deficits noted. ll1 Tuberculosis screening: No symptoms or risk factors identified. Fall Risk IV access (20 points). Total Maxwell Fall Scale indicates No Risk (0-24 pts). Assessment: 17:44 Reassessment: No changes from previously documented assessment. Patient and/or family ll1 updated on plan of care and expected duration. Pain level reassessed. 17:58 Reassessment: No changes from previously documented assessment. Patient and/or family ll1 updated on plan of care and expected duration. Pain level reassessed. Patient is alert, oriented x 3, equal unlabored respirations, skin warm/dry/pink. 18:45 Reassessment: No changes from previously documented assessment. Patient and/or family ll1 updated on plan of care and expected duration. Pain level reassessed. Vital Signs: 17:25 BP 136 / 78; Pulse 99; Resp 16; Temp 98.2; Pulse Ox 100% ; Weight 63.5 kg; Height 5 ft. vg1 2 in. (157.48 cm); Pain 8/10; 17:25 Body Mass Index 25.61 (63.50 kg, 157.48 cm) vg1 ED Course: 17:20 Patient arrived in ED. rg4 17:26 Florian Ha is PHCP. jl9 17:26 Greg Renteria MD is Attending Physician. jl9 17:28 Triage completed. vg1 17:28 Arm band placed on. vg1 17:34 Ata Cortes, RN is Primary Nurse. ll1 17:44 Inserted saline lock: 22 gauge in right antecubital area, using aseptic technique. ll1 Blood collected. 17:45 Patient has correct armband on for positive identification. Bed in low position. Call ll1 light in reach. Side rails up X2. Cardiac monitoring not applicable on this patient. 18:37 CT Abd/Pelvis - IV Contrast Only In Process Unspecified. EDMS 19:54 Primary Nurse role handed off by Ata Cortes, OBIE wm 19:57 No provider procedures requiring assistance completed. IV discontinued, intact, ll3 bleeding controlled, No redness/swelling at site. Pressure dressing applied. Administered Medications: 17:44 Drug: NS 0.9% 1000 ml Route: IV; Rate: 1 bolus; Site: right antecubital; ll1 19:14 Follow up: Response: No adverse reaction; IV Status: Completed infusion; IV Intake: ll1 1000ml 17:44 Drug: Zofran (Ondansetron) 4 mg Route: IVP; Site: right antecubital; ll1 19:14 Follow up: Response: No adverse reaction ll1 19:13 Drug: morphine 2 mg {Note: rass 0, pain 8/10.} Route: IVP; Infused Over: 4 mins; Site: ll1 right antecubital; 19:57 Follow up: Response: No adverse reaction; Marked relief of symptoms; Pain is decreased ll3 Medication: 17:45 VIS not applicable for this client. ll1 Intake: 19:14 IV: 1000ml; Total: 1000ml. ll1 Outcome: 19:34 Discharge ordered by MD. vasquez 19:57 Discharged to home ambulatory. ll3 19:57 Condition: stable 19:57 Discharge instructions given to patient, Instructed on discharge instructions, follow up and referral plans. medication usage, Demonstrated understanding of instructions, follow-up care, medications, Prescriptions given X 1. 19:58 Patient left the ED. ll3 Signatures: Dispatcher [employer] EDDebra Rand rg4 Renetta Ventura RN RN [email or web address] Ata Cortes RN RN [email or web address] Ania Reed Lynsea, RN RN ll3 Florian Ha9 Corrections: (The following items were deleted from the chart) 17:29 17:28 GI: Abdomen is flat, non-distended, Reports nausea, Patient currently denies vg1 diarrhea, vomiting, vg1
[2021-12-11 21:16] VITALS: BP 136/78; TEMP 98.2; O2SAT 100
== END 2021-12-11 19:58 | disposition home or self-care (01) ==
LOC: ER 17:17
DX: R10.9 Unspecified abdominal pain (principal); R11.0 Nausea
CPT/HCPCS: 96361; 85025; 36415; 81025; 81003; 83690; 80053; 74177; 96375; 96374; 99284; Q9967; J2270; J7030; J2405

== ENCOUNTER 2022-08-30 18:37 | Emergency (ER) | payer OTHER ==
--- OUTSIDE RECORDS SUMMARY | 2022-08-30 18:41 | XMS REPORT | Continuity of Care Document ---
:1995 Author Organization [facility] t Address [address] [facility] [place] [address] Care Team Providers Name Role Phone Asked, No Pcp Primary Care Physician Unavailable DEEDEE COTTRELL Attending Clinician Unavailable DEEDEE COTTRELL Attending Clinician Unavailable MITZY LEE Attending Clinician Unavailable FER WHITFIELD Attending Clinician Unavailable RADIOLOGY Attending Clinician Unavailable Hammad Lee MD Attending Clinician Harley Cole MD Attending Clinician HARLEY COLE Attending Clinician Unavailable Jacob Fer HIDALGO Attending Clinician [phone] Julia Mcdermott Attending Clinician EMELYN THOMPSON Attending Clinician Unavailable EMELYN THOMPSON Attending Clinician Unavailable Radiology Attending Clinician Unavailable GORDO HO Attending Clinician Unavailable Gordo Geller Attending Clinician Doctor Unassigned, [place] Attending Clinician Unavailable JULIA PABON Attending Clinician Unavailable RAMESH BANSAL Attending Clinician Unavailable Ramesh Bansal DO Attending Clinician Brian Negron Attending Clinician Sarah Gross MD Attending Clinician Jose Raines MD Attending Clinician Deedee Francisco MD Attending Clinician EMELYN HIGGINS Attending Clinician Unavailable Emelyn Murdock Attending Clinician Deedee Cottrell MD Attending Clinician Starr Aparicio MD Attending Clinician Lorenzo RAGLAND, Cherrie Telles Attending Clinician Unavailable Ultrasound, Ang-Mfkatharine Attending Clinician Unavailable SATHYA LUNDBERG Attending Clinician [...] Number Effective Date Expiration Date Porsha lloyd [facility] [id number] 2019 00:00:00 [employer] [id number] 2022 OUT OF NETWORK 00:00:00 MEDICAID OF [place] [id number] 2019 00:00:00 Problems Condition Condition Condition Status Onset Resolution Last Treating Co mments Source Name Details Category Date Date Treatment Clinician Date Other Other Disease Active Univers general general 5-31 ity of counseling [place] advice and advice 00 Me dical for [facility] Branch contracept contracept tony tony management management Marijuana Marijuana Disease Active 2019-02 Uni vers use use 1-16 ity of 00:00: [address] Tubal Tubal Disease Active 2019-02 Univers ligation ligation 0-20 ity of status status 00:00: [address] 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 on vaginal on vaginal Repeat cytology cytology Pap Smear in 2020. History of History of Disease Active U nivers depression depression 4-20 it y of 00:00: [place] [facility] History of History of Disease Active U nivers asthma asthma 4-20 ity of 00:: [place] [facility] History of History of Disease Active U nivers anxiety anxiety 4-20 ity of 00:: [place] [facility] Obesity Obesity Disease Active Univers (BMI (BMI 4-11 ity of 30-39.9) 30-39.9) 00:00: [place] [facility] Rubella Rubella Disease Active Overview: Univ ers non-immune non-immune 02-19 Formattin ity of status, status, 00:00: g of this [place] antepartum antepartum 00 note Me dical might be Branch different from the original. Address in Postpartu m ( 0 Maternal Maternal Disease Active Overview: Un juan jose varicella, varicella, 02-19 Formattin ity of non-immune non-immune 00:00: g of this [place] 00 note Medical might be Branch different from the original. Address in Postpartu m. Left Left Disease Active 2016-02 Overview: Univer s breast breast 03-19 Formattin ity of mass mass 00:00: g of this [place] 00 note is Medical different Branch from the [...] Active Univers ALLERGIE Class ity of [facility] [place] [facility] Social History Social Habit Start Date Stop Date Quantity Comments Source History SDOH [facility] Alcohol Comment Hospital History SDOH [facility] Alcohol Std Drinks Hospit al History SDOH [facility] Gender identity [facility] Sexual orientation [facility] ASSERTION [facility] Cigarette 2021-12-14 2021-12-14 University of pack-years 00:00:00 00:00:00 [facility] Tobacco Comment 2021-12-14 2021-12-14 Patient states Unive rsity of 00:00:00 00:00:00 she vapes [facility] everyday Branch Tobacco use and 2021-12-14 2021-12-14 Smokeless Universit y of exposure 00:00:00 00:00:00 tobacco non-user [facility] Exposure to 2021-10-20 2021-10-30 Not sure University of SARS-CoV-2 (event) 00:00:00 15:17:00 [facility] History of Social 2019-08-25 2019-08-[address] function 00:00:00 00:00:00 Hospital History SDOH 2019-08-18 2019-08-18 1 [facility] Alcohol Frequency 00:00:00 00:00:00 Hospita l History of tobacco 2013-01-17 2018-01-06 Cigarette Smoker University of use 00:00:00 00:00:00 [facility] Cigarettes smoked 2016-01-05 2016-01-[address] [facility] current (pack per 00:00:00 00:00:00 Medical Center day) - Reported Alcohol intake 2016-01-05 2016-01-[address] [facility] [facility] 00:[facility]:00 00:00:00 non-drinker of Medical Ce nter alcohol (finding) Sex Assigned At [address] [facility] 00:00:00 00:00:00 Medical Center Sex Assigned At [birth year] [facility] 00:00:00 00:00:00 Hospital Smoking Status Start Date Stop Date Source Ex-smoker 2021-12-14 00:00:00 2021-12-14 00:00:[address] [facility] Never smoked tobacco [facility] Current every day 2016-01-05 00:00:[address] [facility] [facility] Medical smoker [facility] Medications Ordered Filled Start Stop Current Ordering Indication Dosage Frequency Signature Comments Components Source Medication Medication Date Date Medication? Clinician (SIG) Name Name ADDERALL XR 2021-02 Yes 25mg Take 25 mg Univers 25 mg 24 hr 0-03 by mouth ity of capsule 00:00: daily. [address] Branch buPROPion 2021-02 Yes 150mg Take 150 Uni vers XL 150 mg 0-03 mg by ity of 24 hr 00:00: mouth in [place] tablet the morning. Branch ADDERALL XR 2021-02 Yes 25mg Take 25 mg Univers 25 mg 24 hr 0-03 by mouth ity of capsule 00:00: daily. [address] buPROPion 2021-02 Yes 150mg Take 150 Uni vers XL 150 mg 0-03 mg by ity of 24 hr 00:00: mouth in [place] tablet the morning. Branch metroNIDAZO Yes [id number] 500mg Take 1 Univers LE 500 mg 9-15 tablet by ity o f tablet 00:00: mouth in [place] the Medical morning Branch and 1 tablet in the evening. metroNIDAZO Yes [id number] 500mg Take 1 Univers LE 500 mg 9-15 tablet by ity o f tablet 00:00: mouth in [place] [address] the Medical morning Branch and 1 tablet in the evening. metroNIDAZO Yes [id number] 500mg Take 1 Univers LE 500 mg 9-15 tablet by ity o f tablet 00:00: mouth in [place] [address] the Medical morning Branch and 1 tablet in the evening. terconazole 2021- No [id number] 80mg Insert 1 Univers 80 mg 9-15 11-06 Suppositor ity of vaginal 00:00: 04:59 y into [place] suppository 00 :00 vagina at [facility] bedtime Branch for 3 days. albuterol Yes [id number] 2{puff} Inhale 2 Univers 90 7-03 Puffs ity of mcg/actuati 00:00: every 4 Harshad as on inhaler 00 (four) Medical hours as Branch needed for Wheezing or Shortness of Breath. albuterol Yes [id number] 2{puff} Inhale 2 Univers 90 7-03 Puffs ity of mcg/actuati 00:00: every 4 [place]arsh[place] as on inhaler 00 (four) Medical hours as Branch needed for Wheezing or Shortness of Breath. albuterol Yes [id number] 2{puff} Inhale 2 Univers 90 7-03 Puffs ity of mcg/actuati 00:00: every 4 [place] as on inhaler 00 (four) Medical hours as Branch needed for Wheezing or Shortness of Breath. metroNIDAZO Yes [id number] 500mg Take 1 Univers LE 500 mg 6-02 tablet by ity o f tablet 00:00: mouth 2 [place] 00 (two) Medical times Branch daily. metroNIDAZO 0 Yes [id number] 500mg Take 1 Univers LE 500 mg 6-02 tablet by ity o f tablet 00:00: mouth 2 [place] 00 (two) Medical times Branch daily. metroNIDAZO Yes [id number] 500mg Take 1 Univers LE 500 mg 6-02 tablet by ity o f tablet 00:00: mouth 2 [place] 00 (two) Medical times Branch daily. chlorphenir 2020-02 Yes [id number] 4mg Take 1 Univers amine 4 mg 0-06 tablet by ity of tablet 00:00: mouth [place] 00 every 6 Medical (six) Branch hours as needed for Allergies or Runny nose. calcium/mag 2020-02 Yes [id number] 1{each} Take 1 Univers nesium/zinc 0-06 Each by ity o f (CALCIUM-MA 00:00: mouth [place] GNESUIUM-ZI 00 daily. Medica l [place]) Branch 333-133-5 mg Tab benzonatate 2020-02 Yes [id number] 100mg Take 1 Univers 100 mg 0-06 capsule by ity of capsule 00:00: mouth 3 [place] 00 (three) Medical times Branch daily as needed for Cough. chlorphenir 2020-02 Yes [id number] 4mg Take 1 Univers amine 4 mg 0-06 tablet by ity of tablet 00:00: mouth [place] 00 every 6 Medical (six) Branch hours as needed for Allergies or Runny nose. calcium/mag 2020-02 Yes [id number] 1{each} Take 1 Univers nesium/zinc 0-06 Each by ity o f (CALCIUM-MA 00:00: mouth [place] GNESUIUM-ZI 00 daily. Medica l [place]) Branch 333-133-5 mg Tab benzonatate 2020-02 Yes [id number] 100mg Take 1 Univers 100 mg 0-06 capsule by ity of capsule 00:00: mouth 3 (three) Medical times Branch daily as needed for Cough. chlorphenir 2020-02 Yes [id number] 4mg Take 1 Univers amine 4 mg 0-06 tablet by ity of tablet 00:00: mouth [place] 00 every 6 Medical (six) Branch hours as needed for Allergies or Runny nose. calcium/mag 2020-02 Yes [id number] 1{each} Take 1 Univers nesium/zinc 0-06 Each by ity o f (CALCIUM-MA 00:00: mouth [place] GNESUIUM-ZI 00 daily. Medica l [place]) Branch 333-133-5 mg Tab benzonatate 2020-02 Yes [id number] 100mg Take 1 Univers 100 mg 0-06 capsule by ity of capsule 00:00: mouth 3 00 (three) Medical times Branch daily as needed for Cough. ciprofloxac Yes [id number] 500mg Take 1 Univers in HCl 500 8-17 tablet by ity of mg tablet 00:00: mouth 2 (two) Medical times Branch daily. metroNIDAZO Yes [id number] 500mg Take 1 Univers LE 500 mg 8-17 tablet by ity o f tablet 00:00: mouth 2 (two) Medical times Branch daily. ondansetron Yes [id number] 4mg Take 1 Univers 4 mg 8-17 tablet by ity of disintegrat 00:00: mouth [place] ing tablet 00 every 8 Medica l (eight) Branch hours as needed for Nausea and Vomiting (N/V). ciprofloxac Yes [id number] 500mg Take 1 Univers in HCl 500 8-17 tablet by ity of mg tablet 00:00: mouth 2 (two) Medical times Branch daily. metroNIDAZO Yes [id number] 500mg Take 1 Univers LE 500 mg 8-17 tablet by ity o f tablet 00:00: mouth 2 00 (two) Medical times Branch daily. ondansetron Yes [id number] 4mg Take 1 Univers 4 mg 8-17 tablet by ity of disintegrat 00:00: mouth [place] ing tablet 00 every 8 Medica l (eight) Branch hours as needed for Nausea and Vomiting (N/V). ciprofloxac Yes [id number] 500mg Take 1 Univers in HCl 500 8-17 tablet by ity of mg tablet 00:00: mouth 2 [place] 00 (two) Medical times Branch daily. metroNIDAZO Yes [id number] 500mg Take 1 Univers LE 500 mg 8-17 tablet by ity o f tablet 00:00: mouth 2 [place] 00 (two) Medical times Branch daily. ondansetron Yes [id number] 4mg Take 1 Univers 4 mg 8-17 tablet by ity of disintegrat 00:00: mouth [place] ing tablet 00 every 8 Medica l (eight) Branch hours as needed for Nausea and Vomiting (N/V). 2019-02 Yes [id number] 1{tbl} Take 1 Univers vitamin 1-18 tablet by ity of w/FA tablet 00:00: mouth [place] 00 daily. Medical Branch docusate 2019-02 Yes [id number] 240mg Take 1 U nivers calcium 240 1-18 capsule by it y of mg capsule 00:00: mouth once [place] 00 daily as Medical needed for Branch Constipati on. ferrous 2019-02 Yes [id number] 325mg Take 1 Un juan jose sulfate 325 1-18 tablet by ity of mg (65 mg 00:00: mouth 2 [place] iron) 00 (two) Medical tablet times Branch daily. ibuprofen 2019-02 Yes [id number] 600mg Take 1 Univers 600 mg 1-18 tablet by ity of tablet 00:00: mouth [place] 00 every 6 Medical (six) Branch hours as needed (Pain). Take with food or milk. 2019-02 Yes [id number] 1{tbl} Take 1 Univers vitamin 1-18 tablet by ity of w/FA tablet 00:00: mouth [place] 00 daily. Medical Branch docusate 2019-02 Yes [id number] 240mg Take 1 U nivers calcium 240 1-18 capsule by it y of mg capsule 00:00: mouth once [place] 00 daily as Medical needed for Branch Constipati on. ferrous 2019-02 Yes [id number] 325mg Take 1 Un juan jose sulfate 325 1-18 tablet by ity of mg (65 mg 00:00: mouth 2 [place] iron) 00 (two) Medical tablet times Branch daily. ibuprofen 2019-02 Yes [id number] 600mg Take 1 Univers 600 mg 1-18 tablet by ity of tablet 00:00: mouth [place] every 6 Medical (six) Branch hours as needed (Pain). Take with food or milk. 2019-02 Yes [id number] 1{tbl} Take 1 Univers vitamin 1-18 tablet by ity of w/FA tablet 00:00: mouth [place] daily. Medical Branch docusate 2019-02 Yes [id number] 240mg Take 1 U nivers calcium 240 1-18 capsule by it y of mg capsule 00:00: mouth once [place] 00 daily as Medical needed for Branch Constipati on. ferrous 2019-02 Yes [id number] 325mg Take 1 Un juan jose sulfate 325 1-18 tablet by ity of mg (65 mg 00:00: mouth 2 [place] iron) 00 (two) Medical tablet times Branch daily. ibuprofen 2019-02 Yes [id number] 600mg Take 1 Univers 600 mg 1-18 tablet by ity of tablet 00:00: mouth [place] every 6 Medical (six) Branch hours as needed (Pain). Take with food or milk. montelukast 2019-02 Yes Univer s 10 mg 1-09 ity of tablet 00:00: [place] [facility] montelukast 2019-02 Yes Univer s 10 mg 1-09 ity of tablet 00:00: [place] [facility] montelukast 2019-02 Yes Univer s 10 mg 1-09 ity of tablet 00:00: [place] [facility] SERTraline 2019-02 Yes 50mg Take [...] solution hours as needed for wheezing. albuterol 2020-0 Yes 1{ampul Q6H Take 1 Met hodi (ACCUNEB) 7-07 e} ampule by st 1.25 mg/3 10:33: nebulizati Ho spita mL 52 on every 6 l nebulizer (six) solution hours as needed for wheezing. albuterol 2020-0 Yes 1{ampul Q6H Take 1 Met hodi (ACCUNEB) 7-07 e} ampule by st 1.25 mg/3 10:33: nebulizati Ho spita mL 52 on every 6 l nebulizer (six) solution hours as needed for wheezing. MEDROXYPROG 2015-[address] [facility] 1-[facility] ACETATE 02:02: larly. Medical (DEPO-PROVE 03 [facility]) BUDESONIDE/ 2015-02 Yes Inhale by [facility] FORMOTEROL 1-17 mouth via Luke s FUMARATE 02:02: inhaler. Medic al (SYMBICORT [address] [place] [address]) MEDROXYPROG 2015-[address] [facility]ONE 1-17 [facility] ACETATE 02:02: larly. Medical (DEPO-PROVE 03 [facility]) BUDESONIDE/ 2015-02 Yes Inhale by [facility] FORMOTEROL 1-17 mouth via Luke s FUMARATE 02:02: inhaler. Medic al (SYMBICORT [address] [place] [address]) MEDROXYPROG 2015-[address] [facility]ONE 1-17 [facility] ACETATE 02:02: larly. Medical (DEPO-PROVE 03 [facility]) BUDESONIDE/ 2015-02 Yes Inhale by [facility] FORMOTEROL 1-17 mouth via Luke s FUMARATE 02:02: inhaler. Medic al (SYMBICORT 03 [facility]) MEDROXYPROG 2015-[address] EST[facility]ONE 1-17 intram[facility] ACETATE 02:02: larly. Medical (DEPO-PROVE 03 [facility]) BUDESONIDE/ 2015-02 Yes Inhale by C [facility] FORMOTEROL 1-17 mouth via Luke s FUMARATE 02:02: inhaler. Medic al (SYMBICORT 03 [facility]) Immunizations Ordered Filled Immunization Date Status Comments Sourc e Immunization Name Name HPV9 2021-07-18 Completed University of 00:00: [facility] HPV9 2021-07-18 Completed University of 00:00: [facility] HPV9 2021-07-18 Completed University of 00:00:00 [facility] HPV9 2020-01-06 Completed University of 00:00: [facility] HPV9 2020-01-06 Completed University of 00:00: [facility] HPV9 2020-01-06 Completed University of 00:00:00 [facility] TDAP 2019-11-13 Completed University of 00:00:00 [facility] Influenza Virus 2019-11-13 Completed Universit y of Vaccine Quad .5 mL 00:00:00 [place] [facility] 6+ MO [place] TDAP 2019-11-13 Completed University of 00:00:00 [facility] Influenza Virus 2019-11-13 Completed Universit y of Vaccine Quad .5 mL 00:00:00 [place] [facility] 6+ MO [place] TDAP 2019-11-13 Completed University of 00:00:00 [facility] Influenza Virus 2019-11-13 Completed Universit y of Vaccine Quad .5 mL 00:00:00 [place] [facility] 6+ MO [place] TDAP 2018-07-01 Completed University of 00:00:00 [facility] TDAP 2018-07-01 [facility] 00:[facility]:00 [facility] Influenza Virus 2017-12-10 Completed Universit y of Vaccine 00:00:00 [facility] Influenza Virus 2017-12-10 Completed Universit y of Vaccine 00:00:00 [facility] Influenza Virus 2017-12-10 Completed Universit y of Vaccine 00:00:00 [facility] HPV9 2017-01-17 Completed University of 00:00:00 [facility] HPV9 2017-01-17 Completed University of 00:00:00 [facility] HPV9 2017-01-17 Completed University of 00:00:00 [facility] Vital Signs Vital Name Observation Time Observation Value Comments Source Systolic blood 2021-12-14 12:40:00 103 mm[Hg] Univer sity of pressure [facility] Diastolic blood 2021-12-14 12:40:00 68 mm[Hg] Unive rsity of pressure [facility] Heart rate 2021-12-14 12:40:00 74 /min [facility] Body temperature 2021-12-14 12:40:00 36.78 Robyn [facility] Body height 2021-12-14 12:40:00 157.5 cm [facility] Body weight 2021-12-14 12:40:00 68.584 kg [facility] BMI 2021-12-14 12:40:00 27.65 kg/m2 [facility] Procedures This patient has no known procedures. Plan of Care Planned Activity Planned Date Details Comments Source Future Scheduled 2022-08-05 COVID-19 VACCINE (#1) [facility] Test 10:40:22 [code = COVID-19 VACCINE (#1)] Future Scheduled 2022-08-05 Hepatitis C screening [facility] Test 10:40:22 (procedure) [code = 946675406] Future Scheduled 2022-08-05 [facility] Test 10:40:22 malignant neoplasm of cervix (procedure) [code = 836584160] Future Scheduled 2022-08-05 INFLUENZA VACCINE Method [facility] Test 10:40:22 [code = INFLUENZA VACCINE] Future Scheduled 2021-10-30 COVID-19 VACCINE (#1) [facility] Test 15:10:41 [code = COVID-19 VACCINE (#1)] Future Scheduled 2021-10-30 Hepatitis C screening [facility] Test 15:10:41 (procedure) [code = 606897289] Future Scheduled 2021-10-30 [facility] Test 15:10:41 malignant neoplasm of cervix (procedure) [code = 542624626] Future Scheduled 2021-10-30 [facility] Test 15:10:41 Chlamydia trachomatis (procedure) [code = 373012896] Future Scheduled 2021-10-30 INFLUENZA VACCINE Method ist Hospital Test 15:10:41 [code = INFLUENZA VACCINE] Future Scheduled 2021-10-30 HEPATITIS B VACCINES Met [facility] Test 15:10:41 (1 of 3 - 3-dose series) [code = HEPATITIS B VACCINES (1 of 3 - 3-dose series)] Future Scheduled 2020-12-22 COVID-19 VACCINE (1) [facility] Test 05:07:22 [code = COVID-19 VACCINE (1)] Future Scheduled 2020-12-22 [facility] C [facility] Test 05:07:22 (procedure) [code = 686119778] Future Scheduled 2020-12-22 [facility] Test 05:07:22 malignant neoplasm of cervix (procedure) [code = 542611187] Future Scheduled 2020-12-22 CHLAMYDIA SCREENING Meth [facility] Hospital Test 05:07:22 [code = CHLAMYDIA SCREENING] Future Scheduled 2020-12-22 INFLUENZA VACCINE Method ist Hospital Test 05:07:22 [code = INFLUENZA VACCINE] Future Scheduled COVID-19 VACCINE (1) [facility] Test [code = COVID-19 VACCINE (1)] [facility] ([facility] [code = 545096875] Future Scheduled [facility] Test malignant neoplasm of cervix (procedure) [code = 603890415] Future Scheduled CHLAMYDIA SCREENING Meth odist Hospital Test [code = CHLAMYDIA SCREENING] Future Scheduled INFLUENZA VACCINE Method ist Hospital Test [code = INFLUENZA VACCINE] Encounters Start End Encounter Admission Attending Care Care Encounter Source Date/Time Date/Time Type Type Clinicians Facility Department ID 2020-12-19 Emergency [facility] [id number] Univers 15:57:55 [facility] 2020-12-17 Emergency [facility] [id number] [facility] [id number] [facility]52:27 [facility]17 Outpatient P DEEDEE COTTRELL [facility] [id number] Univers 00:52:27 [facility]-12-16 Outpatient P [facility] [id number] Univers 23:09:58 [facility] 2020-12-16 Outpatient P [facility] [id number] Univers 23:06:39 [facility] 2022-06-04 2022-06-04 Outpatient R JACOB [facility] [id number] Univers 12:45:00 12:45:00 FER [address] o f [facility] 2021-12-14 2021-12-14 Office RosaHammad doss UNIVERSIT [id number] Univers 07:30:00 08:00:00 Visit Harley Cole Hussain [facility] [id number] ity of [facility] [id number] [id number] [address] 2021-12-14 2021-12-14 [facility] [id number] [facility] 07:30:00 07:30:00 HARLEY pena [facility] 2021-11-02 2021-11-02 Telephone [facility] [id number] [facility] 00:00:00 00:00:00 Fer Alamo PASS WORKER [id number] ity of [facility] [id number] Harshad as MATERNAL [id number] Med ical & CHILD [address] [place] [address] 2021-10-30 2021-10-30 [facility] [id number] Univers 15:15:00 15:54:[address] o f [facility] 2021-10-30 2021-10-30 [facility] [id number] Univers 15:15:00 15:54:54 Visit Fer Alamo PASS WORKER [id number] ity of [facility] [id number] Harsh[place] as MATERNAL [id number] [facility] & CHILD [address] [place] [address] 2021-10-30 2021-10-30 [facility] [id number] Univers 00:00:00 00:00:00 Julia R PASS WORKER [id number] ity of [facility] [id number] [place]arsh[place] as MATERNAL [id number] [facility] ical & CHILD [address] [place] [address] 2021-10-26 2021-10-26 Outpatient R EMELYN THOMPSON [facility] [id number] Univers 09:00:00 09:00:00 EMELYN THOMPSON ity of [facility] 2021-08-30 2021-08-30 [facility] UNIVERSIT [id number] Univers 16:21:40 23:59:00 Encounter Y HEALTH [id number] ity of [facility] [id number] [id number] [address] 2021-08-30 2021-08-30 Outpatient R RADIOLOGY [facility] [id number] Univers 16:19:52 16:20:[address] [facility] 2021-08-30 2021-08-30 [facility] UNIVERSIT [id number] Univers 16:15:00 16:20:00 Encounter Y HEALTH 350.1.13.10 ity of [facility] [place].2.[phone] [address] 2021-08-20 2021-08-20 Emergency X RIDD[place], [facility] ERT [id number] Univers 13:53:00 14:36:00 CHRISTOPHER it y of [facility] 2021-08-20 2021-08-20 Emergency [place], [facility] 1.2.527.582 [id number] Univers 13:53:00 14:36:00 [facility] 350.1.13.10 ity [facility] [place].2.7.2.[place] [phone] [address] 2021-08-20 2021-08-20 Emergency X RIDD[place], [facility] ERT [id number] Univers 13:53:00 14:36:00 [facility] 2021-07-20 2021-07-20 Telephone [facility], [facility] 1.2.840.114 [id number] Univers 00:00:00 00:00:00 Fer Alamo PASS WORKER 350.1.13.10 ity of [facility] 4.2.7.2.686 Harshad as MATERNAL [phone] Med ical & CHILD [address] [place] [address] 2021-07-18 2021-07-18 Office [place], [facility] 1.2.863.974 [id number] Univers 08:30:00 09:19:59 Visit Fer Alamo PASS WORKER 350.1.13.10 ity of REGIONAL 4.2.7.2.686 Harshad as MATERNAL [phone] [facility] & [address] 2021-07-18 2021-07-18 [facility] [id number] Univers 08:30:00 09:19:59 FER ity o [facility] 2021-07-18 2021-07-18 Outpatient R JACOB, [facility] [id number] Univers 08:30:00 09:19:59 FER ity o [facility] 2021-07-18 2021-07-18 [facility] [id number] Univers 08:30:00 08:30:00 FER ity o [facility] 2021-07-18 2021-07-18 Orders Doctor SHANNAN 1.2.840.114 [id number] Univers 00:00:00 00:00:00 Only Unassigned, GABBY 350.1.13.10 ity of [place] [facility] 4.2.7.2.686 Harshad as [phone] [address] 2021-07-13 2021-07-13 Telephone [facility] 1.2.840.114 [id number] Univers 00:00:00 00:00:00 Fer Alamo PASS WORKER 350.1.13.10 ity of REGIONAL 4.2.7.2.686 Harshad as MATERNAL [id number] [facility] & CHILD [address] [place] [address] 2021-07-05 2021-07-05 Outpatient R PEPPER [facility] [id number] Univers 13:45:00 13:45:00 ROSHUNDA ity o [facility] 2021-07-05 2021-07-05 Outpatient R PEPPER [facility] [id number] Univers 13:45:00 13:45:00 ROSHUNDA ity o f [facility] 2021-07-05 2021-07-05 Outpatient Landy PABON [facility] [id number] Univers 13:45:00 13:45:00 ROSHUNDA ity o [facility] 2020-11-23 2020-11-23 Emergency X , [facility] ERT [id number] Univers 08:36:00 11:26:00 RAMESH pena [facility] 2020-11-23 2020-11-23 Emergency X , [facility] ERT [id number] Univers 08:36:00 11:26:00 RAMESH pena [facility] 2020-11-23 2020-11-23 Emergency [facility] 1.2.830.546 [id number] Univers 08:36:00 11:26:00 Ramesh Jones 350.1.13.10 i ty of [place] 4.2.7.2.686 [facility] [phone] [address] 2020-11-23 2020-11-23 Emergency X , [facility] ERT [id number] Univers 08:36:00 11:26:00 RAMESH pena [facility] 2020-10-05 2020-10-05 Telephone [facility] 1.2.840.114 [id number] Univers 00:00:00 00:00:00 [facility] [employer] [facility] 350.1.13.10 it y of [facility] 4.2.7.2.686 [facility] [phone] [address] ([facility]) 2020-10-03 2020-10-04 Emergency [facility] 1.2.840.114 [id number] Univers 21:02:00 15:37:00 Jcaide Karen 350.1.13.10 i ty of [place] 4.2.7.2.686 [facility] [phone] [address] 2020-10-03 2020-10-03 Orders Doctor SHANNAN 1.2.840.114 [id number] Univers 00:00:00 00:00:00 Only Unassigned, GABBY 350.1.13.10 ity of [place] [facility] 4.2.7.2.686 [facility] [phone] [address] 2020-06-02 2020-06-02 Outpatient R [facility] [id number] Univers 13:00:00 13:00:[address] [facility] 2020-02-01 2020-02-01 Telephone [facility] 1.2.840.114 [id number] 00:00:00 00:00:00 Fer Alamo PASS WORKER 350.1.13.10 [facility] 4.2.7.2.686 MATERNAL [phone] & CHILD [address] [place] [address] 2020-02-01 2020-02-01 [facility] 1.2.840.114 [id number] Univers 00:00:00 00:00:00 Fer C PASS WORKER 350.1.13.10 ity [facility] 4.2.7.2.686 Harshad as MATERNAL [phone] Med ical & CHILD [address] [place] [address] 2020-01-29 2020-01-29 [facility] [id number] Univers 14:15:00 14:15:00 FER romeroy o f [facility] 2020-01-04 2020-01-06 [facility] SHANNAN 1.2.840.114 [id number] Univers 13:40:00 23:37:00 Encounter Sarah GABBY 350.1.13.10 ity of [place] [id number] Harshad as [phone] [address] 2020-01-04 2020-01-06 [facility] 1.2.840.114 [id number] 13:40:00 23:37:00 Encounter Sarah GABBY 350.1.13.10 [place] [id number] [id number] [facility] 2020-01-05 2020-01-05 Anesthesia Jose Raines 1.2.840.114 [id number] Univers 06:00:00 13:07:00 Deedee Francisco 350.1.13.10 ity of [place] [id number] [address] 2020-01-05 2020-01-05 Anesthesia Jose Raines 1.2.840.114 [id number] 06:00:00 13:07:00 Deedee Francisco 350.1.13.10 [place] 4.2.7.2.686 [id number] [facility] 2020-01-05 2020-01-05 Outpatient [facility] [id number] Univers 12:45:00 12:45:00 EMELYN pena [facility] 2019-12-29 2019-12-29 Routine [facility] 1.2.265.503 [id number] Univers 08:17:52 09:01:51 Emelyn Bell PASS WORKER 350.1.13.10 i ty of Visit [facility] 4.2.7.2.686 Harshad as MATERNAL [id number] [facility] & CHILD [address] [place] [address] 2019-12-29 2019-12-29 Outpatient [facility] [id number] Univers 08:15:00 08:15:00 EMELYN pena [facility] 2019-12-22 2019-12-22 Routine [facility] 1.2.679.053 [id number] Univers 10:32:34 11:06:53 Emelyn Bell PASS WORKER 350.1.13.10 i ty of Visit [facility] 4.2.7.2.686 Harshad as MATERNAL [phone] [facility] & [address] 2019-12-22 2019-12-22 Outpatient [facility] [id number] Univers 10:15:00 10:15:00 EMELYN pena [facility] 2019-12-22 2019-12-22 Telephone [facility] 1.2.840.114 [id number] Univers 00:00:00 00:00:00 Emelyn Bell PASS WORKER 350.1.13.10 it y of [facility] 4.2.7.2.686 Harshad as MATERNAL [phone] [facility] & CHILD [address] [place] [address] 2019-12-12 2019-12-12 [facility] 1.2.840.114 [id number] Univers 15:08:00 16:45:00 Encounter Deedee Jones 350.1.13.10 ity [facility] 4.2.7.2.686 [place] [facility] [phone] [address] 2019-12-12 2019-12-12 Outpatient P DEEDEE COTTRELL [facility] IVETTE [id number] Univers 15:08:00 15:08:00 DEEDEE COTTRELL itcory [facility] 2019-12-08 2019-12-08 Routine [facility] 1.2.726.015 [id number] Univers 15:43:10 16:10:28 Emelyn Bell PASS WORKER 350.1.13.10 i ty of Visit [facility] 4.2.7.2.686 Harshad as MATERNAL [id number] [facility] & CHILD [address] [place] [address] 2019-12-08 2019-12-08 Outpatient R GISELA [facility] [id number] Univers 15:45:00 15:45:00 EMELYN pena [facility] 2019-12-08 2019-12-08 [facility]ill [facility] 1.2.840.114 [id number] Univers 00:00:00 00:00:00 Julia Bill PASS WORKER 350.1.13.10 ity of [facility] 4.2.7.2.686 Harshad as MATERNAL [id number] [facility] & CHILD [address] [place] [address] 2019-12-03 2019-12-03 [facility] Starr Aparicio [facility] 1.2.840.114 [id number] Univers 09:42:00 11:45:00 Encounter [place] 350.1.13.10 ity of [place] 4.2.7.2.686 [place] [facility] [phone] [facility] [address] [place] 2019-12-03 2019-12-03 Nurse SHANNAN [place] 1.2.840.114 [id number] Univers 00:00:00 00:00:00 Triage Cherrie PIERRE 350.1.13.10 i ty of HOSPITAL 4.2.7.2.686 Harshad as [id number] [facility] 019 [place] 2019-11-27 2019-11-27 Outpatient R PEPPER [facility] [id number] Univers 09:30:00 09:30:00 JULIA pena o f [facility] 2019-11-13 2019-11-13 [facility]ine [facility] 1.2.840.114 [id number] Univers 09:24:10 10:16:32 Julia Bill PASS WORKER 350.1.13.10 ity of Visit [facility] 4.2.7.2.686 Harshad as MATERNAL [phone] Med ical & CHILD 107 [facility] 2019-11-13 2019-11-13 Outpatient R PEPPER [facility] [id number] Univers 09:00:00 09:00:00 JULIA pena o renetta [facility] 2019-11-13 2019-11-13 Orders Doctor CAMPBELL 1.2.840.114 [id number] Univers 00:00:00 00:00:00 Only Unassigned, GABBY 350.1.13.10 ity [facility] 4.2.7.2.686 Harshad as [phone] [address] 2019-11-10 2019-11-10 Outpatient R JACOB [facility] [id number] Univers 11:00:00 11:00:00 FER noriega [facility] 2019-09-09 2019-09-09 Outpatient [facility] [id number] Univers 11:00:00 11:00:[address] [facility] 2019-09-04 2019-09-04 Wilder [facility] 1.2.840.114 [id number] Univers 00:00:00 00:00:00 Julia Bill PASS WORKER 350.1.13.10 ity [facility] 4.2.7.2.686 Harshad as MATERNAL [id number] [facility] ical & CHILD 107 [facility] 2019-09-03 2019-09-03 Geometry Professor Ultrasound, [facility] 1.2 .840.114 [id number] Univers 13:01:48 14:18:52 Visit Sarah Gross PASS WORKER 350.1.13.10 ity of [facility] 4.2.7.2.686 Harshad as MATERNAL [phone] [facility] ical & CHILD 369 [facility] 2019-09-03 2019-09-03 Outpatient P [facility] [id number] Univers 13:00:00 13:00:[address] [facility] 2019-09-02 2019-09-02 Outpatient R PEPPER [facility] [id number] Univers 15:30:00 15:30:00 JULIA pena o renetta [facility] 2019-09-01 2019-09-01 Outpatient SATHYA SCHMIDT [facility] [id number] Univers 14:15:00 14:15:[address] [facility] 2019-08-25 2019-08-25 Outpatient [facility] [id number] [place] 00:00:00 00:00:00 911 Method i 2019-08-18 2019-08-20 Inpatient VICKY, [facility] 023 [id number] [place] 00:00:00 00:00:00 LISSETTE 011 Method i 2019-08-06 2019-08-06 [facility] 1.2.840.114 [id number] Univers 14:27:15 14:57:50 Romynda R PASS WORKER 350.1.13.10 ity of Visit [facility] 4.2.7.2.686 Harshad as MATERNAL [phone] Med ical & CHILD [address] [place] [address] 2019-08-06 2019-08-06 [facility] [id number] Univers 14:30:00 14:30:00 JULIA pena o f [facility] 2019-07-09 2019-07-09 Outpatient [facility] [id number] Univers 13:00:00 13:00:00 LISA becky o f [facility] 2019-07-09 2019-07-09 Telemedici [facility] 1.2.840.114 [id number] Univers 09:44:31 09:59:31 ne Visit Julia R PASS WORKER 350.1.13.10 ity of [facility] 4.2.7.2.686 Harshad as MATERNAL [phone] Med ical & CHILD [address] [place] [address] 2019-07-06 2019-07-06 Telephone [facility] 1.2.644.459 [id number] Univers 00:00:00 00:00:00 Rossondranda R PASS WORKER 350.1.13.10 ity of [facility] 4.2.7.2.686 Harshad as MATERNAL [phone] Med ical & CHILD [address] [place] [address] 2019-06-25 2019-06-25 Orders Doctor CAMPBELL 1.2.840.114 [id number] Univers 00:00:00 00:00:00 Only Unassigned, GABBY 350.1.13.10 ity of [place] [facility] 4.2.7.2.686 Harshad as [id number] [address] 2019-06-22 2019-06-22 Letter Pepper [facility] 1.2.840.114 [id number] Univers 00:00:00 00:00:00 (Out) Roshunda R PASS WORKER 350.1.13.10 ity of [facility] 4.2.7.2.686 Harshad as MATERNAL [phone] [facility] ical & CHILD [address] [place] [address] 2019-06-22 2019-06-22 Telephone [facility] 1.2.591.728 [id number] Univers 00:00:00 00:00:00 Roshunda R PASS WORKER 350.1.13.10 ity of [facility] 4.2.7.2.686 Harshad as MATERNAL [phone] [facility] & CHILD [address] [place] [address] 2019-06-11 2019-06-11 Telephone [facility] [id number] Univers 00:00:00 00:00:00 Roshunda R PASS WORKER 350.1.13.10 ity of REG[facility]AL 4.2.7.2.686 Harshad as MATERNAL [phone] [facility] & [address] 2019-06-08 2019-06-08 Initial [facility] 1.2.840.114 [id number] Univers 13:56:12 15:33:20 Roshunda R PASS WORKER 350.1.13.10 ity of Visit REGIONAL 4.2.7.2.686 Harshad as MATERNAL [id number] [facility] & CHILD [address] [place] [address] 2019-06-08 2019-06-08 Outpatient [facility] [id number] Univers 14:15:00 14:15:00 ROSHUNDA ity o f [facility] 2019-06-08 2019-06-08 Orders Doctor CAMPBELL 1.2.840.114 [id number] Univers 00:00:00 00:00:00 Only Unassigned, GABBY 350.1.13.10 ity of [place] [facility] 4.2.7.2.686 Harshad as [phone] [address] 2019-05-18 2019-05-18 Telephone Pepper [facility] 1.2.145.021 [id number] Univers 00:00:00 00:00:00 Caitysondramikel Bill PASS WORKER 350.1.13.10 ity of REGIONAL 4.2.7.2.686 Harshad as MATERNAL [phone] Med ical & CHILD 107 [facility] 2018-09-24 2018-09-24 Routine Magaly Veronica [facility] 1.2.840.11 [id number] Univers 15:35:46 16:28:34 Deedee Cottrell [place] 350.1.13 .10 ity of Visit [place] 4.2.7.2.686 [place] [phone] [place] 134 [facility] Results Test Description Test Time Test Comments Results Result Comments Source SARS coronavirus 2 RNA [Presence] in Respiratory speci men by 2019-08-20 03:25:27 JAYLA with probe detection Test Item Value Reference Range Interpretation Comme nts SARS coronavirus 2 RNA [Presence] in Respiratory Not detected Not-D etected specimen by JAYLA with probe detection (test code = 99124-4) ROBBIN GILL
[2022-08-30 20:37] LABS: Specific Gravity 1.028 (1.005-1.030)
[2022-08-30 20:43] LABS: Specific Gravity 1.028 (1.005-1.030); Urine Bacteria <20 /HPF (<20); Urine Bilirubin NEGATIVE (Negative); Urine Blood 3+ (OVER) (Negative); Urine Clarity Extremely Turbid (Clear); Urine Color Brown (Yellow); Urine Crystals Unidentified Few /HPF (None Seen); Urine Glucose NEGATIVE (Negative); Urine Protein 1+ (Negative); Urine RBC >50 /HPF (None Seen); Urine Urobilinogen Normal (Normal); Urine WBC Clump Occasional /HPF (None Seen); Urine pH 5.5 (5.0-7.0)
[2022-08-30 20:46] LABS: Absolute Lymphocytes (CBC) 3.7 K/uL (0.7-4.9); Hematocrit 38.2 % (36.0-45.0); Lymphocytes % 33.9 % (15.3-44.8); MCV 90.7 fL (80-100); MPV 6.8 fL (7.6-11.3); RBC Red Blood Cell Count 4.22 M/uL (3.86-4.86)
[2022-08-30] MEDS ORDERED: KETOROLAC 30 MG/ML INJ ONE (20:49)
[2022-08-30] MEDS ORDERED: NA CHLORIDE 0.9% 1,000 ML ONE (20:49)
[2022-08-30 21:01] LABS: Albumin 3.7 g/dL (3.4-5.0); Bilirubin Total 0.2 mg/dL (0.2-1.0); Potassium 3.5 mEq/L (3.5-5.1); Protein, Total 6.9 g/dL (6.4-8.2)
--- NOTE | 2022-08-30 21:43 | RAD REPORT ---
EXAM DESCRIPTION: CTAbdomen Pelvis W Contrast - 08/30/2022 9:34 pm CLINICAL HISTORY: Abdominal pain. ABD PAIN COMPARISON: Abdomen Pelvis W Contrast dated 12/11/2021; Abdomen Pelvis W Contrast dated 2; Abdomen Pelvis W Contrast dated 08/12/2021 TECHNIQUE: Biphasic CT imaging of the abdomen and pelvis was performed with 100 ml non-ionic IV cont rast. All CT scans are performed using dose optimization technique as appropriate and may include automated exposure control or mA/KV adjustment according to patient size. FINDINGS: The lung bases are clear. The liver, spleen, pancreas, adrenal glands and kidneys are within normal limits. No bowel obstruction, free air, free fluid or abscess. Moderate retained stool. The appendix is andreia l. No evidence of significant lymphadenopathy. No suspicious bony findings. IMPRESSION: No acute intra-abdominal or pelvic finding.
[2022-08-30] MEDS ORDERED: ACETAMINOPHEN 500 MG TAB ONE (22:15)
--- NOTE | 2022-08-31 00:18 | ER ---
Nurse's Notes [facility] Name: Britney Umana Age: 27 yrs Sex: Female : 1995 Arrival Date: 08/30/2022 Time: 18:37 Bed 25 Private MD: Diagnosis: Abnormal uterine and vaginal bleeding, unspecified Presentation: 08/30 18:44 Chief complaint: Patient states: Vaginal bleeding since 08/04/22. Low abdominal and low ll1 back pain. No fever, some nausea. Coronavirus screen: Vaccine status: Patient reports receiving the 1st dose of the Covid vaccine. Client denies travel out of the [place] in the last 14 days. At this time, the client does not indicate any symptoms associated with coronavirus-19. Ebola Screen: Patient denies travel to an Ebola-affected area in the 21 days before illness onset. Initial Sepsis Screen: Does the patient meet any 2 criteria? No. Patient's initial sepsis screen is negative. Does the patient have a suspected source of infection? No. Patient's initial sepsis screen is negative. Risk Assessment: Do you want to hurt yourself or someone else? Patient reports no desire to harm self or others. Onset of symptoms was August 04, 2022. 18:44 Acuity: CARLYLE 3 ll1 18:44 Method Of Arrival: Ambulatory ll1 Triage Assessment: 18:47 General: Appears uncomfortable, Behavior is calm, cooperative, appropriate for age. ll1 Pain: Complains of pain in pelvis Quality of pain is described as aching. : Reports vaginal bleeding that is. Historical: - Allergies: 18:42 No Known Allergies; ll1 - PMHx: 18:42 Asthma; Depression; ll1 - PSHx: 18:42 tubal ligation; ll1 - Immunization history:: Adult Immunizations up to date, Client reports receiving the 1st dose of the Covid vaccine. - Social history:: Smoking status: Patient reports the use of cigarette tobacco products, denies chronic smoking, but will smoke occasionally, Reported history of juuling and/or vaping. Screenin:56 [facility] ED Fall Risk Assessment (Adult) History of falling in the last 3 months, kd3 including since admission No falls in past 3 months (0 pts) Confusion or Disorientation No (0 pts) Intoxicated or Sedated Yes (3 pts) Impaired Gait No (0 pts) Mobility Assist Device Used No (0 pt) Altered Elimination No (0 pt) Score/Fall Risk Level 0 - 2 = Low Risk Maintained a safe environment. Abuse screen: Denies threats or abuse. Denies injuries from another. Nutritional screening: No deficits noted. Tuberculosis screening: No symptoms or risk factors identified. Assessment: 20:57 GI: Bowel sounds present X 4 quads. Abd is soft X 4 quads. kd3 22:12 General: Appears uncomfortable, Behavior is calm, cooperative. Pain: Complains of pain kd3 in pelvis. Neuro: Level of Consciousness is awake, alert, obeys commands, Oriented to person, place, time, situation. Cardiovascular: Patient's skin is warm and dry. Respiratory: Airway is patent Trachea midline Respiratory effort is even, unlabored, Respiratory pattern is regular, symmetrical. Vital Signs: 18:44 BP 131 / 88; Pulse 89; Resp 16; Temp 98.5; Pulse Ox 98% ; Weight 72.57 kg; Height 5 ft. ll1 2 in. ; Pain 9/10; 20:56 BP 114 / 80; Pulse 75; Resp 19; Pulse Ox 100% on R/A; kd3 22:12 BP 125 / 78; Pulse 74; Resp 19; Pulse Ox 100% ; kd3 18:44 Body Mass Index 29.26 (72.57 kg, 157.48 cm) ll1 18:44 Pain Scale: Adult ll1 ED Course: 18:38 Patient arrived in ED. im 18:42 Arm band placed on. ll1 18:46 Triage completed. ll1 18:55 Chelsea De La Garza PA-C is [facility]. sb4 18:55 Tio Kong MD is Attending Physician. sb4 20:32 Test, Urine Sent. kd3 20:32 Urinalysis w/ reflexes Sent. kd3 20:38 Aura Verde, OBIE is Primary Nurse. kd3 20:38 Urinalysis w/ reflexes Sent. kd3 20:38 Test, Urine Sent. kd3 20:38 Lipase Sent. kd3 20:38 CMP Sent. kd3 20:38 CBC with Diff Sent. kd3 20:38 Inserted saline lock: 20 gauge in left antecubital area, using aseptic technique. Blood kd3 collected. 20:46 Lipase Sent. kd3 20:46 CMP Sent. kd3 20:46 CBC with Diff Sent. kd3 20:46 Urine Culture Sent. kd3 20:56 No provider procedures requiring assistance completed. kd3 20:57 Patient has correct armband on for positive identification. kd3 21:35 CT Abd/Pelvis - IV Contrast Only In Process Unspecified. EDMS 23:29 Transvaginal Study (probe) In Process Unspecified. EDMS 08/31 00:17 Karie De Jesus MD is Referral Physician. sb4 00:38 IV discontinued, intact, bleeding controlled, No redness/swelling at site. Pressure kd3 dressing applied. Administered Medications: 08/30 20:46 Drug: NS 0.9% IV 1000 ml Route: IV; Rate: 1 bolus; Site: left antecubital; kd3 20:47 Drug: TORadol - Ketorolac IVP 15 mg Route: IVP; Site: left antecubital; kd3 22:11 Drug: Acetaminophen PO 1000 mg Route: PO; kd3 Medication: 20:57 VIS not applicable for this client. kd3 Outcome: 22:12 Condition: stable kd3 08/31 00:17 Discharge ordered by . sb4 00:38 Discharged to home ambulatory. kd3 00:38 Discharge instructions given to patient, Instructed on discharge instructions, follow up and referral plans. Demonstrated understanding of instructions, follow-up care. 00:39 Patient left the ED. kd3 Signatures: Dispatcher [employer] EDMS Ata Cortes RN RN ll1 Aura Verde RN RN kd3 Chelsea De La Garza PA-C PAFlavio sb4 Colleen Irene Corrections: (The following items were deleted from the chart) 08/30 18:47 18:44 Pulse 89bpm; Resp 16bpm; Pulse Ox 98%; Temp 98.5F; 72.57 kg; Height 5 ft. 2 in.; ll1 BMI: 29.2; Pain 9/10, Adult; ll1
--- NOTE | 2022-08-31 00:18 | EDPHYS ---
Physician Documentation [facility] Name: Britney Umana Age: 27 yrs Sex: Female : 1995 Arrival Date: 08/30/2022 Time: 18:37 Bed 25 Private MD: ED Physician Tio Kong HPI: 08/30 23:26 This 27 yrs old Female presents to ER via Ambulatory with complaints of sb4 Abdominal Pain, Low Back Pain, Vaginal Bleeding - since 08/04. 23:26 The patient presents with abdominal pain in the lower abdomen. Onset: The sb4 symptoms/episode began/occurred 3 week(s) ago. The symptoms do not radiate. Associated signs and symptoms: Pertinent positives: vaginal bleeding, Pertinent negatives: nausea, vomiting, and diarrhea, dysuria, hematuria, shortness of breath, vomiting. Modifying factors: The symptoms are alleviated by the symptoms are aggravated by nothing. patient states she started her period 3 weeks ago and the bleeding has not stopped. she states it has been dark brown, bright red from day to day. She was started on OCPs 2 days ago without improvement in bleeding. she cannot get an appt with her OBGYN for another month. denies fatigue, shob, weakness, chest pain, nausea, vomiting, urinary symptoms. Historical: - Allergies: 18:42 No Known Allergies; ll1 - PMHx: 18:42 Asthma; Depression; ll1 - PSHx: 18:42 tubal ligation; ll1 - Immunization history:: Adult Immunizations up to date, Client reports receiving the 1st dose of the Covid vaccine. - Social history:: Smoking status: Patient reports the use of cigarette tobacco products, denies chronic smoking, but will smoke occasionally, Reported history of juuling and/or vaping. ROS: 23:30 Constitutional: Negative for fever, chills, and weight loss. sb4 23:30 Abdomen/GI: Positive for abdominal pain, Negative for nausea, vomiting, and diarrhea. 23:30 : Positive for vaginal bleeding, menstrual abnormality, Negative for urinary symptoms, flank pain, burning with urination, difficulty urinating, vaginal discharge. 23:30 All other systems are negative. Exam: 23:30 Constitutional: This is a well developed, well nourished patient who is awake, alert, sb4 and in no acute distress. Head/Face: Normocephalic, atraumatic. Eyes: Extra-ocular motions intact. Periorbital areas with no swelling, redness, or edema. Cardiovascular: Regular rate and rhythm with a normal S1 and S2. Respiratory: Lungs have equal breath sounds bilaterally, clear to auscultation and percussion. No rales, rhonchi or wheezes noted. No increased work of breathing, no retractions or nasal flaring. Abdomen/GI: Soft, non-tender, no distension. Skin: Warm, dry with normal turgor. Normal color with no rashes, no lesions, and no evidence of cellulitis. MS/ Extremity: Pulses equal, no cyanosis. Neurovascular intact. Full, normal range of motion. Neuro: Awake and alert, GCS 15, oriented to person, place, time, and situation. Cranial nerves II-XII grossly intact. Motor strength 5/5 in all extremities. Sensory grossly intact. Cerebellar exam normal. Normal gait. Vital Signs: 18:44 BP 131 / 88; Pulse 89; Resp 16; Temp 98.5; Pulse Ox 98% ; Weight 72.57 kg; Height 5 ft. ll1 2 in. ; Pain 9/10; 20:56 BP 114 / 80; Pulse 75; Resp 19; Pulse Ox 100% on R/A; kd3 22:12 BP 125 / 78; Pulse 74; Resp 19; Pulse Ox 100% ; kd3 18:44 Body Mass Index 29.26 (72.57 kg, 157.48 cm) ll1 18:44 Pain Scale: Adult ll1 MDM: 18:55 Patient medically screened. sb4 23:30 Differential diagnosis: Dysmenorrhea, Ectopic , Endometriosis, Menorrhagia, sb4 Ovarian Torsion, Peritonitis, Pelvic Inflammatory Disease, Pyelonephritis, Tubal Ovarian Abcess. 08/31 01:03 Data reviewed: vital signs, nurses notes, lab test result(s), radiologic studies, I sb4 have discussed the patient's presentation/case with the attending Emergency Department Physician; and as a result, I will discharge patient. Consideration of Admission/Observation Escalation of care including admission/observation considered. I considered the following discharge prescriptions or medication management in the emergency department Antibiotics: At this time antibiotics are not recommended, Pain Medications: At this time, prescription pain medications are not recommended. Counseling: I had a detailed discussion with the patient and/or guardian regarding: the historical points, exam findings, and any diagnostic results supporting the discharge/admit diagnosis, lab results, radiology results, the need for outpatient follow up, an OB/Gyne specialist, to return to the emergency department if symptoms worsen or persist or if there are any questions or concerns that arise at home. Special discussion: Based on the patient's Hx, exam, and Dx evaluation, there is no indication for emergent surgery or inpatient Tx. It is understood by the patient/guardian that if the Sx's persist or worsen they need to return immediately for re-evaluation. 08/30 20:17 Order name: CBC with Diff; Complete Time: 20:54 sb4 08/30 20:17 Order name: CMP; Complete Time: 21:10 sb4 08/30 20:17 Order name: Lipase; Complete Time: 21:10 sb4 08/30 20:17 Order name: Test, Urine; Complete Time: 20:54 sb4 08/30 20:17 Order name: Urinalysis w/ reflexes; Complete Time: 20:54 sb4 08/30 20:46 Order name: Urine Culture EDPA 08/30 21:11 Order name: CT Abd/Pelvis - IV Contrast Only; Complete Time: 21:47 sb4 08/30 22:04 Order name: Transvaginal Study (probe) sb4 08/30 20:17 Order name: IV Saline Lock; Complete Time: 20:38 sb4 08/30 20:17 Order name: Labs collected and sent; Complete Time: 20:38 sb4 Administered Medications: 08/30 20:46 Drug: NS 0.9% IV 1000 ml Route: IV; Rate: 1 bolus; Site: left antecubital; kd3 20:47 Drug: TORadol - Ketorolac IVP 15 mg Route: IVP; Site: left antecubital; kd3 22:11 Drug: Acetaminophen PO 1000 mg Route: PO; kd3 Disposition: 08/31 10:03 Co-signature as Attending Physician, Tio Kong MD I reviewed the patient's care rt provided by the Advanced Practice Provider and agree with the diagnosis and treatment plan. Disposition Summary: 08/31/22 00:17 Discharge Ordered Location: Home sb4 Problem: an ongoing problem sb4 Symptoms: are unchanged sb4 Condition: Stable sb4 Diagnosis - Abnormal uterine and vaginal bleeding, unspecified sb4 Followup: sb4 - With: Karie De Jesus MD - When: 1 week - Reason: Further diagnostic work-up, Recheck today's complaints, Re-evaluation by your physician Discharge Instructions: - Discharge Summary Sheet sb4 - Abnormal Uterine Bleeding sb4 Forms: - Medication Reconciliation Form sb4 - Thank You Letter sb4 - Antibiotic Education sb4 - Prescription Opioid Use sb4 - Patient Portal Instructions sb4 Signatures: Dispatcher [employer] EDAta Ferreira RN RN ll1 Aura Verde RN RN kd3 Chelsea De La Garza PA-C PAFlavio sb4 Tio Kong MD MD rt Corrections: (The following items were deleted from the chart) 08/30 23:31 23:26 patient states she started her period 3 weeks ago and the bleeding has not sb4 stopped. she states it has been dark brown. sb4
[2022-08-31 03:21] VITALS: TEMP 98.5
[2022-08-31 03:23] VITALS: O2SAT 100
[2022-08-31 03:24] VITALS: BP 125/78
--- NOTE | 2022-08-31 19:26 | RAD REPORT ---
EXAM DESCRIPTION: US - Transvaginal Study Probe - 08/30/2022 11:28 pm CLINICAL HISTORY: The patient is 27 years old and is Female; VAGINAL BLEEDING TECHNIQUE: Real-time transvaginal pelvic ultrasound with image documentation. Transvaginal imaging was used for better evaluation of the endometrium and adnexa. COMPARISON: No relevant prior studies available. FINDINGS: UTERUS/CERVIX: The endometrial measures 0.5 cm. The uterus measures 9.4 x 5.5 x 6.0 cm. No myometrial mass. RIGHT OVARY: The right ovary measures 2.8 x 2.3 x 1.9 cm. Normal arterial and venous color Dopple r and spectral waveform is present. Normal blood flow. LEFT OVARY: The left ovary measures 2.6 x 1.8 x 2.1 cm. Normal arterial and venous color Doppler and spectral waveform is present. Normal blood flow. FREE FLUID: No free fluid. BLADDER: Empty bladder which cannot be evaluated with this probe. IMPRESSION: Unremarkable pelvic ultrasound. Electronically signed by: Kat Vargas MD 08/31/2022 12:09 AM CDT Due to temporary technical issues with the PACS/Fluency reporting system, reports are being signed by the in house radiologists without review as a courtesy to insure prompt reporting. The interpreting radiologist is fully responsible for the content of the report.
== END 2022-08-31 00:39 | disposition home or self-care (01) ==
LOC: ER 18:37
DX: N93.9 Abnormal uterine and vaginal bleeding, unspecified (principal); F17.210 Nicotine dependence, cigarettes, uncomplicated
CPT/HCPCS: 87088; 85025; 81001; 87086; 36415; 81025; 87077; 87186; 83690; 80053; 74177; 76830; 96374; 99284; Q9967; J7030

== ENCOUNTER → 2023-05-11 | Emergency (ER) | payer OTHER, SELFPAY ==
[~2023-05-11] MED LIST: CYCLOBENZAPRINE 10 MG TAB ONE; HYDROCODONE/APAP 7.5/325 MG TAB ONE; KETOROLAC 30 MG/ML INJ ONE; dexAMETHasone 10 MG/ML VIAL ONE
[2023-05-11 07:13] LABS: Specific Gravity 1.015 (1.005-1.030)
--- NOTE | 2023-05-11 07:13 | RAD REPORT ---
EXAM DESCRIPTION: CTAbdomen Pelvis Wo Contrast - 05/11/2023 6:56 am CLINICAL HISTORY: back pain COMPARISON: Abdomen Pelvis W Contrast dated 08/30/2022; Abdomen Pelvis W Contrast dated 2; Abdomen Pelvis W Contrast dated 09/13/2021; Abdomen Pelvis W Contrast dated 08/12/2021 TECHNIQUE: CT of the abdomen and pelvis was performed. All CT scans are performed using dose optimization technique as appropriate and may include automated exposure control or mA/KV adjustment according to patient size. FINDINGS: Lower chest: No acute abnormality. Liver: No acute abnormality or suspicious lesions. Biliary: No biliary ductal dilatation. Stomach: No significant focal abnormality. Duodenum: No significant focal abnormality. Pancreas: No significant abnormality. Spleen: No significant abnormality. Adrenal: No suspicious lesions. Kidney/ureter: No hydronephrosis. No renal calculi. Retroperitoneum: No retroperitoneal adenopathy. Vascular: No aneurysm. Bowel: No significant focal abnormality. Normal appendix. Peritoneum: No ascites or free air. Bladder: Grossly unremarkable. Reproductive: No adnexal masses. Bones: No acute fracture. Small disc protrusion at L5-S1 and broad-based disc bulge at L4-5. No high- grade central spinal stenosis. These are similar to 08/30/2022. Other: n/a IMPRESSION: No acute intra-abdominal or pelvic finding. Normal appendix. No urinary tract calculi.
[2023-05-11 07:14] LABS: Specific Gravity 1.015 (1.005-1.030); Urine Bacteria <20 /HPF (<20); Urine Bilirubin NEGATIVE (Negative); Urine Blood Negative (Negative); Urine Clarity Extremely Turbid (Clear); Urine Color Light-Yellow (Yellow); Urine Culture Reflex Order NOT NEEDED; Urine Glucose NEGATIVE (Negative); Urine Ketones NEGATIVE (Negative); Urine Micro Reflex YN NO BILL MICROSCOPIC; Urine Nitrite NEGATIVE (Negative); Urine Protein NEGATIVE (Negative); Urine RBC <5 /HPF (None Seen); Urine Urobilinogen Normal (Normal); Urine WBC <5 /HPF (<5)
--- NOTE | 2023-05-11 07:30 | ER ---
Nurse's Notes [facility] Name: Britney Umana Age: 27 yrs Sex: Female : 1995 Arrival Date: 05/11/2023 Time: 05:46 Bed 4 Private MD: Diagnosis: Sciatica;Intervertebral disc disorders with radiculopathy, lumbosacral region;Low back pain Presentation: 05/10 05:59 Chief complaint: Patient states: Lower back pain onset at 0300 after coughing. Pt cm10 reports taking ibuprofen, naproxen with no relief. Pt also reports using lidocaine patch and ice pack with no relief. Pt states that this has happened to her in the past. Pt reports difficulty sitting and walking. Coronavirus screen: Client denies travel out of the [place] in the last 14 days. At this time, the client does not indicate any symptoms associated with coronavirus-19. Ebola Screen: Patient denies travel to an Ebola-affected area in the 21 days before illness onset. No symptoms or risks identified at this time. Initial Sepsis Screen: Does the patient meet any 2 criteria? No. Patient's initial sepsis screen is negative. Does the patient have a suspected source of infection? No. Patient's initial sepsis screen is negative. Risk Assessment: Do you want to hurt yourself or someone else? Patient reports no desire to harm self or others. Onset of symptoms was May 11, 2023. 05:59 Method Of Arrival: Wheelchair cm10 05:59 Acuity: CARLYLE 3 cm10 Triage Assessment: 06:01 General: Appears in no apparent distress. uncomfortable, Behavior is calm, cooperative. cm10 Pain: Complains of pain in low back area. Neuro: No deficits noted. Level of Consciousness is awake, alert, obeys commands, Oriented to person, place, time, situation. Respiratory: No deficits noted. Airway is patent Respiratory effort is even, unlabored, Respiratory pattern is regular, symmetrical. GI: No deficits noted. No signs and/or symptoms were reported involving the gastrointestinal system. : No deficits noted. No signs and/or symptoms were reported regarding the genitourinary system. Derm: No deficits noted. No signs and/or symptoms reported regarding the dermatologic system. Skin is intact, Skin is pink, warm \\T\\ dry. Musculoskeletal: No deficits noted. Range of motion: intact in all extremities. 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 - Social history:: Smoking status: Patient reports the use of cigarette tobacco products, denies chronic smoking, but will smoke occasionally. - Family history:: not pertinent. Screenin:02 [facility] ED Fall Risk Assessment (Adult) History of falling in the last 3 months, cm10 including since admission No falls in past 3 months (0 pts) Confusion or Disorientation No (0 pts) Intoxicated or Sedated No (0 pts) Impaired Gait Yes (1 pt) Mobility Assist Device Used Yes (1 pt) Altered Elimination No (0 pt) Score/Fall Risk Level 0 - 2 = Low Risk Oriented to surroundings, Maintained a safe environment, Hourly rounding (assess needs \\T\\ fall precautionary measures) done. Abuse screen: Denies threats or abuse. Denies injuries from another. Nutritional screening: No deficits noted. Tuberculosis screening: No symptoms or risk factors identified. Assessment: 06:08 General: Appears uncomfortable, Behavior is cooperative, appropriate for age. Pain: km8 Complains of pain in low back area Pain radiates to bilateral hips Pain currently is 9 out of 10 on a pain scale. Quality of pain is described as aching, sharp, Pain began 3 hours ago. Is continuous, Alleviated by nothing. Aggravated by repositioning. Neuro: Level of Consciousness is awake, alert, obeys commands, Oriented to person, place, time, situation. Cardiovascular: Denies chest pain, shortness of breath, Patient's skin is warm and dry. Respiratory: Airway is patent Respiratory effort is even, unlabored, Respiratory pattern is regular, symmetrical. GI: No signs and/or symptoms were reported involving the gastrointestinal system. : Reports "cloudy urine". EENT: No signs and/or symptoms were reported regarding the EENT system. Derm: No signs and/or symptoms reported regarding the dermatologic system. Skin is intact, is healthy with good turgor, Skin is dry, Skin is pink, warm \\T\\ dry. normal, Skin temperature is warm. Musculoskeletal: Circulation, motion, and sensation intact. Reports difficulty walking due to pain. Vital Signs: 05:59 BP 119 / 76; Pulse 82; Resp 16 S; Temp 98.4(O); Pulse Ox 98% on R/A; Weight 70.31 kg; cm10 Height 5 ft. 2 in. ; Pain 10/10; 07:47 BP 115 / 67; Pulse 78; Resp 15; Pulse Ox 99% ; ko1 05:59 Body Mass Index 28.35 (70.31 kg, 157.48 cm) cm10 05:59 Pain Scale: Adult cm10 [place] Coma Score: 06:08 Eye Response: spontaneous(4). Motor Response: obeys commands(6). Verbal Response: km8 oriented(5). Total: 15. ED Course: 05:50 Patient arrived in ED. gm2 05:50 Tio Kong MD is Attending Physician. rt 06:01 Triage completed. cm10 06:01 Arm band placed on Patient placed in an exam room, on a stretcher. cm10 06:03 Patient has correct armband on for positive identification. Bed in low position. Call cm10 light in reach. Side rails up X2. Provided Education on: ER PROCESS AND PROCEDURES. . 06:05 Stephanie Cruz, OBIE is Primary Nurse. km8 06:08 Pulse ox on. NIBP on. Warm blanket given. km8 06:08 Patient maintains SpO2 saturation greater than 95% on room air. km8 06:56 CT Abd/Pelvis - Without Contrast In Process Unspecified. EDMS 07:12 Attending Physician role handed off by Tio Kong MD corazon 07:12 Ken Tamayo MD is Attending Physician. corazon 07:22 Rip Vaughn MD is Referral Physician. corazon 07:28 Blas Sanchez MD is Referral Physician. corazon 07:47 No provider procedures requiring assistance completed. Patient did not have IV access ko1 during this emergency room visit. Administered Medications: 06:33 Drug: Hydrocodone-Acetaminophen PO (7.5 mg-325 mg) 1 tabs PO once Route: PO; cm10 07:51 Follow up: Response: No adverse reaction; Pain is decreased ko1 06:33 Drug: Cyclobenzaprine PO 10 mg PO once Route: PO; cm10 07:51 Follow up: Response: No adverse reaction; Pain is decreased ko1 07:34 Drug: Dexamethasone IM 10 mg IM once Route: IM; Site: right ventrogluteal; iw 07:51 Follow up: Response: No adverse reaction ko1 07:34 Drug: Ketorolac IM 60 mg IM once Route: IM; Site: right ventrogluteal; iw 07:51 Follow up: Response: No adverse reaction ko1 Medication: 06:02 VIS not applicable for this client. cm10 Outcome: 07:29 Discharge ordered by MD. chandra 07:47 Discharged to home ambulatory, with family, ko1 07:47 Condition: improved 07:47 Discharge instructions given to patient, family, Instructed on discharge instructions, follow up and referral plans. medication usage, Demonstrated understanding of instructions, follow-up care, medications, Prescriptions given X 4, 07:55 Patient left the ED. iw Signatures: Dispatcher [employer] EDKen Heller MD MD cha Williams, Irene, RN OBIE iw Lacy Soliz RN RN ko1 Tio Kong MD MD rt Martinez, Clarissa, RN RN 10 Heide Martinez [facility] Stephanie Cruz RN RN km8
--- NOTE | 2023-05-11 07:30 | EDPHYS ---
Physician Documentation [facility] Name: Britney Umana Age: 27 yrs Sex: Female : 1995 Arrival Date: 05/11/2023 Time: 05:46 Bed 4 Private MD: ED Physician Ken Tamayo HPI: 05/10 06:36 This 27 yrs old Female presents to ER via Wheelchair with complaints of Back rt Pain, Leg Pain, pt unable to walk. she is in alot of pain. 06:36 Patient presents to the ED with lower back pain. Patient states this occurred after rt coughing about 3 AM. States that she had no pain when she went to bed. Says that it feels like it is in the middle of her spine. Has had similar symptoms recently. Reports cloudy urine but denies dysuria, hematuria. Denies other acute complaints, symptoms are moderate severity, aching nature, nonradiating, no other aggravating or elevating factors. Patient did take ibuprofen, naproxen prior to arrival to no relief.. 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 - Social history:: Smoking status: Patient reports the use of cigarette tobacco products, denies chronic smoking, but will smoke occasionally. - Family history:: not pertinent. ROS: 06:36 Constitutional: Negative for fever, chills, and weight loss, Cardiovascular: Negative rt for chest pain, palpitations, and edema, Respiratory: Negative for shortness of breath, cough, wheezing, and pleuritic chest pain, Abdomen/GI: Negative for abdominal pain, nausea, vomiting, diarrhea, and constipation, MS/Extremity: Negative for injury and deformity, Skin: Negative for injury, rash, and discoloration, Neuro: Negative for headache, weakness, numbness, tingling, and seizure, 06:36 Back: Positive for pain at rest, pain with movement, Exam: 06:36 Constitutional: This is a well developed, well nourished patient who is awake, alert, rt and in no acute distress. Head/Face: Normocephalic, atraumatic. Chest/axilla: Normal chest wall appearance and motion. Nontender with no deformity. No lesions are appreciated. Cardiovascular: Regular rate and rhythm with a normal S1 and S2. No gallops, murmurs, or rubs. Normal PMI, no JVD. No pulse deficits. Respiratory: Lungs have equal breath sounds bilaterally, clear to auscultation and percussion. No rales, rhonchi or wheezes noted. No increased work of breathing, no retractions or nasal flaring. Abdomen/GI: Soft, non-tender, with normal bowel sounds. No distension or tympany. No guarding or rebound. No evidence of tenderness throughout. Skin: Warm, dry with normal turgor. Normal color with no rashes, no lesions, and no evidence of cellulitis. MS/ Extremity: Pulses equal, no cyanosis. Neurovascular intact. Full, normal range of motion. Neuro: Awake and alert, GCS 15, oriented to person, place, time, and situation. Cranial nerves II-XII grossly intact. Motor strength 5/5 in all extremities. Sensory grossly intact. Cerebellar exam normal. Normal gait. 06:36 Back: Midline tenderness of the lower lumbar region, no step-offs, no CVAT, Vital Signs: 05:59 BP 119 / 76; Pulse 82; Resp 16 S; Temp 98.4(O); Pulse Ox 98% on R/A; Weight 70.31 kg; cm10 Height 5 ft. 2 in. ; Pain 10/10; 07:47 BP 115 / 67; Pulse 78; Resp 15; Pulse Ox 99% ; ko1 05:59 Body Mass Index 28.35 (70.31 kg, 157.48 cm) cm10 05:59 Pain Scale: Adult cm10 [place] Coma Score: 06:08 Eye Response: spontaneous(4). Motor Response: obeys commands(6). Verbal Response: km8 oriented(5). Total: 15. MDM: 06:13 Patient medically screened. rt 05/10 06:18 Order name: UAM; Complete Time: 07:19 rt 05/10 06:18 Order name: PREGU; Complete Time: 07:19 rt 05/10 06:18 Order name: CT Abd/Pelvis - Without Contrast; Complete Time: 07:19 rt Administered Medications: 06:33 Drug: Hydrocodone-Acetaminophen PO (7.5 mg-325 mg) 1 tabs PO once Route: PO; cm10 07:51 Follow up: Response: No adverse reaction; Pain is decreased ko1 06:33 Drug: Cyclobenzaprine PO 10 mg PO once Route: PO; cm10 07:51 Follow up: Response: No adverse reaction; Pain is decreased ko1 07:34 Drug: Dexamethasone IM 10 mg IM once Route: IM; Site: right ventrogluteal; iw 07:51 Follow up: Response: No adverse reaction ko1 07:34 Drug: Ketorolac IM 60 mg IM once Route: IM; Site: right ventrogluteal; iw 07:51 Follow up: Response: No adverse reaction ko1 Disposition Summary: 05/11/23 07:29 Discharge Ordered Notes: Location: Home corazon Problem: new corazon Symptoms: have improved corazon Condition: Stable corazon Diagnosis - Sciatica corazon - Intervertebral disc disorders with radiculopathy, lumbosacral region corazon - Low back pain corazon Followup: corazon - With: Private Physician - When: 2 - 3 days - Reason: Recheck today's complaints, Continuance of care, Re-evaluation by your physician Followup: corazon - With: Rip Vaughn MD - When: 2 - 3 days - Reason: Recheck today's complaints, Continuance of care, Re-evaluation by your physician Followup: corazon - With: Blas Sanchez MD - When: 2 - 3 days - Reason: Recheck today's complaints, Re-evaluation by your physician Discharge Instructions: - Discharge Summary Sheet corazon - Acute Back Pain, Adult corazon - Herniated Disk corazon - Lumbosacral Radiculopathy corazon - Musculoskeletal Pain corazon - Herniated Disk, Ceue-cu-Foyz corazon Forms: - Medication Reconciliation Form corazon - Thank You Letter corazon - Antibiotic Education corazon - Prescription Opioid Use corazon - Patient Portal Instructions corazon - Leadership Thank You Letter corazon - Work release form lg3 Prescriptions: - acetaminophen-codeine 300-30 mg Oral tablet - take 2 tablet ORAL route every 6 hours as needed for pain; 20 tablet; Refills: corazon 0, Product Selection Permitted - dexamethasone 4 mg Oral tablet - take 1 tablet ORAL route once daily; 5 tablet; Refills: 0, Product Selection corazon Permitted - Diclofenac Sodium 75 mg Oral tablet, delayed release (enteric coated) - take 1 tablet ORAL route 2 times per day; 20 tablet; Refills: 0, Product [facility] Selection Permitted - Cyclobenzaprine 5 mg Oral Tablet - take 1 tablet ORAL route 3 times per day As needed; 15 tablet; Refills: 0, corazon Product Selection Permitted Signatures: Dispatcher [employer] Ken Bryan MD MD cha Williams, Irene, RN RN iw [place], Ryan, MD MD rt Martinez, Clarissa, RN RN cm10 Lacy Soliz RN ko1
[2023-05-11 08:03] VITALS: BP 115/67; TEMP 98.4; O2SAT 99
== END ==
LOC: ER 05:46
DX: M54.30 Sciatica, unspecified side (principal); M51.17 Intervertebral disc disorders with radiculopathy, lumbosacral region
CPT/HCPCS: 74176; 81001; 81025; 96372; 99284; J1100

== ENCOUNTER 2023-08-20 10:17 | Emergency (ER) | payer SELFPAY ==
--- NOTE | 2023-08-20 10:46 | ER ---
Nurse's Notes [facility] Name: Britney Umana Age: 28 yrs Sex: Female : 1995 Arrival Date: 08/20/2023 Time: 10:17 Bed 12 Private MD: Diagnosis: Acute serous otitis media, left ear;Tympanic Membrane Perforation Presentation: 08/19 10:31 Chief complaint: Patient states: LEFT JAW PAIN X 4 DAYS. FEVER AT HOME WAS 102. ap3 Coronavirus screen: Client denies travel out of the [place] in the last 14 days. At this time, the client does not indicate any symptoms associated with coronavirus-19. Ebola Screen: Patient negative for fever greater than or equal to 101.5 degrees Fahrenheit, and additional compatible Ebola Virus Disease symptoms Patient denies exposure to infectious person. Patient denies travel to an Ebola-affected area in the 21 days before illness onset. No symptoms or risks identified at this time. Initial Sepsis Screen: Does the patient meet any 2 criteria? No. Patient's initial sepsis screen is negative. Does the patient have a suspected source of infection? No. Patient's initial sepsis screen is negative. Risk Assessment: Do you want to hurt yourself or someone else? Patient reports no desire to harm self or others. Onset of symptoms was August 16, 2023. 10:31 Method Of Arrival: Ambulatory ap3 10:31 Acuity: CARLYLE 4 ap3 Triage Assessment: 10:33 General: Appears in no apparent distress. comfortable, Behavior is calm, cooperative. ap3 Pain: Complains of pain in mouth. EENT: Reports LEFT JAW PAIN. Neuro: Level of Consciousness is awake, alert, obeys commands, Oriented to person, place, time, situation. 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 - Infectious Disease History:: Denies. - Social history:: Smoking status: Patient reports the use of cigarette tobacco products, denies chronic smoking, but will smoke occasionally. Screenin:58 [facility] ED Fall Risk Assessment (Adult) History of falling in the last 3 months, ap3 including since admission No falls in past 3 months (0 pts) Confusion or Disorientation No (0 pts) Intoxicated or Sedated No (0 pts) Impaired Gait No (0 pts) Mobility Assist Device Used No (0 pt) Altered Elimination No (0 pt) Score/Fall Risk Level 0 - 2 = Low Risk Oriented to surroundings, Maintained a safe environment, Educated pt \T\ family on fall prevention, incl call for assistance when getting out of bed, Assessed \T\ reinforced patient's understanding of fall precautions, Provided non-skid footwear, Hourly rounding (assess needs \T\ fall precautionary measures) done, Used ambulatory aids as needed (educated on \T\ assisted with), Used gait belt as appropriate. Abuse screen: Denies threats or abuse. Nutritional screening: No deficits noted. Tuberculosis screening: No symptoms or risk factors identified. Vital Signs: 10:31 BP 129 / 75; Pulse 90; Resp 18; Temp 98.8(O); Pulse Ox 100% on R/A; Weight 72.57 kg; ap3 Height 5 ft. 2 in. ; 10:31 Body Mass Index 29.26 (72.57 kg, 157.48 cm) ap3 ED Course: 10:22 Patient arrived in ED. mg5 10:25 Jasmeet Romano MD is Attending Physician. ec2 10:32 Triage completed. ap3 10:33 Arm band placed on Patient placed in an exam room. ap3 10:45 Elyse La MD is Referral Physician. ec2 11:09 No provider procedures requiring assistance completed. Patient did not have IV access ap3 during this emergency room visit. 11:10 Patient has correct armband on for positive identification. Bed in low position. Call ap3 light in reach. Side rails up X2. Provided Education on: discharge instructions. school lunch monitor on. Pulse ox on. NIBP on. Administered Medications: 10:58 Drug: Amoxicillin-Clavulanate PO 875 mg PO once Route: PO; ap3 11:11 Follow up: Response: Medication administered at discharge. ap3 Medication: 11:10 VIS not applicable for this client. ap3 Outcome: 10:45 Discharge ordered by . ec2 11:09 Discharged to home ambulatory, ap3 11:09 Condition: good 11:09 Discharge instructions given to patient, Instructed on discharge instructions, follow up and referral plans. Demonstrated understanding of instructions, follow-up care, 11:11 Patient left the ED. ap3 Signatures: Gabriela Byers RN RN ap3 Lisa Stubbs mg5 Jasmeet Romano MD MD ec2 Corrections: (The following items were deleted from the chart) 10:33 10:31 Onset of symptoms was August 20, 2023 ap3 ap3 10:34 10:31 Onset of symptoms was August 18, 2023 ap3 ap3
--- NOTE | 2023-08-20 10:46 | EDPHYS ---
Physician Documentation [facility] Name: Britney Umana Age: 28 yrs Sex: Female : 1995 Arrival Date: 08/20/2023 Time: 10:17 Bed 12 Private MD: ED Physician Jasmeet Romano HPI: 08/19 10:43 This 28 yrs old Female presents to ER via Ambulatory with complaints of Fever, ec2 Ear Pain, Jaw Pain. 10:43 Patient arrives today for evaluation of left ear and jaw pain. Complaining of pain that ec2 is been persistent for the past several days. Also complains of decreased hearing. Reports that she does regularly clean her ear with ear rfid developer. Denies any trauma. No fevers or chills, no nausea or vomiting.. 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 - Infectious Disease History:: Denies. - Social history:: Smoking status: Patient reports the use of cigarette tobacco products, denies chronic smoking, but will smoke occasionally. ROS: 10:43 Constitutional: as per hpi ec2 Exam: 10:43 Constitutional: GEN: NAD Head: atraumatic Eyes: EOMI Ears: External ears are normal. ec2 Left tympanic membrane with perforation noted, no marked erythema. Mouth: Good mouth opening, no trismus, no issues with secretions, no mastoiditis CV: regular rate LUNGS: no respiratory distress ABD: non-distended SKIN: no evidence of rashes MSK: no evidence of trauma NEURO: moves all extremities equally Vital Signs: 10:31 BP 129 / 75; Pulse 90; Resp 18; Temp 98.8(O); Pulse Ox 100% on R/A; Weight 72.57 kg; ap3 Height 5 ft. 2 in. ; 10:31 Body Mass Index 29.26 (72.57 kg, 157.48 cm) ap3 MDM: 10:33 Patient medically screened. ec2 10:43 Data reviewed: vital signs. ED course: Patient arrives today for evaluation of left ear ec2 pain. Emanation remarkable for HEENT findings as noted above. Presentation consistent with tympanic membrane perforation, will start the patient on antibiotics for possible otitis media causing perforation, additionally considered other processes such as mastoiditis, HEENT abscess. Will discharge home. Return precautions given. Will have the patient follow-up with ENT.. Administered Medications: 10:58 Drug: Amoxicillin-Clavulanate PO 875 mg PO once Route: PO; ap3 11:11 Follow up: Response: Medication administered at discharge. ap3 Disposition Summary: 08/20/23 10:45 Discharge Ordered Notes: Location: Home ec2 Condition: Stable ec2 Diagnosis - Acute serous otitis media, left ear ec2 - Tympanic Membrane Perforation ec2 Followup: ec2 - With: Elyse La MD - When: - Reason: Recheck today's complaints Discharge Instructions: - Discharge Summary Sheet ec2 - Otitis Media, Adult, [id number] ec2 Forms: - Medication Reconciliation Form ec2 - Antibiotic Education ec2 - Prescription Opioid Use ec2 - Patient Portal Instructions ec2 - Leadership Thank You Letter ec2 Prescriptions: - Augmentin 875-125 mg Oral tablet - take 1 tablet ORAL route every 12 hours for 7 days; 14 tablet; Refills: 0, ec2 Product Selection Permitted Signatures: Gabriela Byers RN RN ap3 Jasmeet Romano MD MD ec2
[2023-08-20] MEDS ORDERED: AMOX/K CLAV 875 MG TAB ONE (10:55)
[2023-08-20 11:38] VITALS: BP 129/75; TEMP 98.8; O2SAT 100
== END 2023-08-20 11:11 | disposition home or self-care (01) ==
LOC: ER 10:17
DX: H65.02 Acute serous otitis media, left ear (principal); H72.92 Unspecified perforation of tympanic membrane, left ear

== ENCOUNTER 2024-10-14 20:35 | Emergency (ER) | payer SELFPAY ==
[2024-10-14] MEDS ORDERED: ONDANSETRON 4 MG/2 ML VIAL ONE (21:13)
[2024-10-14] MEDS ORDERED: KETOROLAC 30 MG/ML INJ ONE ×2 (21:13→21:26)
[2024-10-14] MEDS ORDERED: NA CHLORIDE 0.9% 1,000 ML ONE (21:14)
[2024-10-14 21:48] LABS: Urine Microscopic Reflex YN NO UMIC
[2024-10-14 21:59] LABS: ALT/SGPT 19.0 U/L (13-56); AST/SGOT 14.0 U/L (15-37); Albumin 3.8 g/dL (3.4-5.0); Albumin/Globulin Ratio 1.2 (1.1-1.8); Alkaline Phosphatase 58.0 U/L (45-117); Anion Gap 11.6 mEq/L (5.0-15.0); BUN Blood Urea Nitrogen 8.0 mg/dL (7-18); Globulin 3.2 g/dL (2.3-3.5); Glucose Level 89.0 mg/dL (74-106); Lipase 19.0 U/L (13-75); Potassium 3.6 mEq/L (3.5-5.1)
[2024-10-14 22:07] LABS: Absolute Lymphocytes (CBC) 3.3 K/uL (0.7-4.9); Hematocrit 39.9 % (36.0-45.0); Hemoglobin 13.3 g/dL (12.0-15.0); MCH 30.0 pg (27.0-35.0); MCHC 33.3 g/dL (32.0-36.0); MCV 90.1 fL (80-100); MPV 7.5 fL (7.6-11.3); Nucleated RBC Absolute Count 0.0 (0-0); Nucleated Red Blood Cells % 0.0 % (0-0); RBC Red Blood Cell Count 4.43 M/uL (3.86-4.86); White Blood Count 9.50 thou/uL (4.3-10.9)
--- NOTE | 2024-10-14 22:28 | RAD REPORT ---
EXAMINATION: CT ABDOMEN AND PELVIS WITH CONTRAST CLINICAL INDICATION: Abdominal pain TECHNIQUE: CT abdomen and pelvis was performed, after the administration of 100 cc Isovue-300.. Sagit carlton and coronal reconstructions were obtained. One or more of the following dose reduction techniques were used: Automated exposure control, adjustment of the mA and kV according to patient si ze, and iterative reconstruction. Unless otherwise specified, incidental findings do not require dedicated imaging follow-up. [id number]. Oral contrast was not given which limits evaluation of bowel and appendix. COMPARISON: .2023 FINDINGS: Liver, spleen, pancreas, adrenals and kidneys appear unremarkable No evidence of diverticulitis. Normal appendix Mild thickening of the wall of the rectosigmoid colon. No adnexal mass : IMPRESSION: Mild thickening of the wall of the rectosigmoid colon probably indicating inflammation.
--- NOTE | 2024-10-14 23:15 | ER ---
Nurse's Notes [facility] Name: Britney Umana Age: 29 yrs Sex: Female : 1995 Arrival Date: 10/14/2024 Time: 20:35 Bed 4 Private MD: Diagnosis: Inflammation of rectosigmoid colon Presentation: 10/14 21:08 Chief complaint: Patient states: Lower abdominal pain and constipation. Pt took a kd3 laxative last night with no relief. PT feel pressure in the perineal area. Pt is tearful in triage. Coronavirus screen: Vaccine status: Patient reports receiving the 1st dose of the Covid vaccine. Ebola Screen: No symptoms or risks identified at this time. Initial Sepsis Screen: Does the patient meet any 2 criteria? No. Patient's initial sepsis screen is negative. Does the patient have a suspected source of infection? No. Patient's initial sepsis screen is negative. Risk Assessment: Do you want to hurt yourself or someone else? Patient reports no desire to harm self or others. Onset of symptoms was October 13, 2024. 21:08 Method Of Arrival: Ambulatory kd3 21:08 Acuity: CARLYLE 3 kd3 Triage Assessment: 21:10 General: Appears distressed, Behavior is cooperative, anxious, crying. Pain: Complains kd3 of pain in suprapubic area, right lower quadrant and left lower quadrant. GI: Reports lower abdominal pain, constipation, nausea. Historical: - Allergies: 21:10 No Known Allergies; kd3 - PMHx: 21:10 Asthma; Depression; kd3 - PSHx: 21:10 tubal ligation; kd3 - Immunization history:: Adult Immunizations up to date. - Infectious Disease History:: Denies. - Social history:: Smoking status: Patient reports the use of cigarette tobacco products, denies chronic smoking, but will smoke occasionally. Screenin:20 [facility] ED Fall Risk Assessment (Adult) History of falling in the last 3 months, jj7 including since admission No falls in past 3 months (0 pts) Confusion or Disorientation No (0 pts) Intoxicated or Sedated No (0 pts) Impaired Gait No (0 pts) Mobility Assist Device Used No (0 pt) Altered Elimination No (0 pt) Score/Fall Risk Level 0 - 2 = Low Risk Oriented to surroundings, Maintained a safe environment, Educated pt \T\ family on fall prevention, incl call for assistance when getting out of bed, Assessed \T\ reinforced patient's understanding of fall precautions. Abuse screen: Denies threats or abuse. Nutritional screening: No deficits noted. Tuberculosis screening: No symptoms or risk factors identified. Assessment: 21:20 General: Appears in no apparent distress. uncomfortable, Behavior is calm, cooperative, jj7 appropriate for age. Pain: Complains of pain in suprapubic area, right lower quadrant and left lower quadrant Pain currently is 9 out of 10 on a pain scale. Neuro: No deficits noted. Level of Consciousness is awake, alert, obeys commands, Oriented to person, place, time, situation, Appropriate for age. Cardiovascular: No deficits noted. Respiratory: No deficits noted. GI: Abd is soft X 4 quads Abdomen is tender to palpation in suprapubic area, right lower quadrant and left lower quadrant Reports lower abdominal pain, constipation, nausea, vomiting. : No deficits noted. EENT: No deficits noted. Derm: No deficits noted. Musculoskeletal: No deficits noted. Vital Signs: 21:08 BP 119 / 76; Pulse 105; Resp 20; Temp 98.9(O); Pulse Ox 99% on R/A; Weight 70.31 kg; kd3 Height 5 ft. 2 in. ; 21:45 BP 118 / 83; Pulse 95; Resp 20; Pulse Ox 100% ; jj7 22:30 BP 116 / 63; Pulse 79; Resp 20; Pulse Ox 100% ; jj7 23:42 BP 115 / 65; Pulse 89; Resp 19; Temp 97.8; Pulse Ox 99% ; Pain 0/10; jj7 21:08 Body Mass Index 28.35 (70.31 kg, 157.48 cm) kd3 23:42 Pain Scale: Adult jj7 ED Course: 20:36 Patient arrived in ED. jj6 20:37 Em Harris FNP-C is PHCP. kb 20:37 Aguila Arnold MD is Attending Physician. kb 21:10 Triage completed. kd3 21:10 Arm band placed on right wrist. kd3 21:12 Cuco Chang, OBIE is Primary Nurse. jj7 21:18 Radiology exam delayed due to lab results not completed at this time. (BUN/Creatinine) nj IV insertion attempt and/or patient not having appropriate IV at this time. 21:20 Patient has correct armband on for positive identification. Bed in low position. Call jj7 light in reach. Adult w/ patient. Provided Education on: USE OF CALL PATRICK. Warm blanket given. 21:23 Inserted saline lock: 20 gauge in right antecubital area, using aseptic technique. sa1 Blood collected. Flushed with 10 mL NS. 21:35 CBC with Diff Sent. jj7 21:35 CMP Sent. jj7 21:36 Lipase Sent. jj7 22:12 CT Abd/Pelvis - IV Contrast Only In Process Unspecified. EDMS 23:43 No provider procedures requiring assistance completed. IV discontinued, intact, jj7 bleeding controlled, No redness/swelling at site. Pressure dressing applied. Administered Medications: 21:20 Drug: Ondansetron IVP 4 mg IVP once; over 2 minutes Route: IVP; Site: right antecubital;jj7 23:40 Follow up: Response: Marked relief of symptoms jj7 21:20 Drug: NS 0.9% IV 1000 ml IV at 1 bolus Per protocol; to be given as a bolus over 60 jj7 minutes Route: IV; Rate: 1 bolus; Site: right antecubital; 23:40 Follow up: IV Status: Completed infusion jj7 21:33 Drug: TORadol - Ketorolac IVP 15 mg IVP once Route: IVP; Site: right antecubital; jj7 23:40 Follow up: Response: Marked relief of symptoms jj7 23:30 Drug: Decadron - Dexamethasone IVP 10 mg IVP once Route: IVP; Site: right antecubital; jj7 23:40 Follow up: Response: Marked relief of symptoms jj7 Medication: 21:20 VIS not applicable for this client. jj7 Outcome: 23:14 Discharge ordered by MD. quintero 23:43 Discharged to home ambulatory, with significant other, jj7 23:43 Condition: improved 23:43 Discharge instructions given to patient, Instructed on discharge instructions, follow up and referral plans. medication usage, Demonstrated understanding of instructions, follow-up care, medications, 23:43 Prescriptions given X 3, 23:44 Patient left the ED. jj7 Signatures: Dispatcher [employer] EDMS Em Harris, A AUXILIARY-C A AUXILIARY-Ckb [place] Jennifer jj6 Aura Verde RN RN kd3 Cuco Chang RN RN jj7 Sultan Marianna sa1 Corrections: (The following items were deleted from the chart) 21:18 21:17 Radiology exam delayed due to lab results not completed at this time. (HCG) nj (BUN/Creatinine) IV insertion attempt and/or patient not having appropriate IV at this time. mei 21:27 21:23 Inserted saline lock: 20 gauge in right antecubital area, using aseptic sa1 technique. sa1
--- NOTE | 2024-10-14 23:15 | EDPHYS ---
Physician Documentation [facility] Name: Britney Umana Age: 29 yrs Sex: Female : 1995 Arrival Date: 10/14/2024 Time: 20:35 Bed 4 Private MD: ED Physician Aguila Arnold HPI: 10/14 23:13 This 29 yrs old Female presents to ER via Ambulatory with complaints of kb Constipation, Nausea/Vomiting, H/O SBO. 23:13 Patient is a 29-year-old female who presents for constipation for a couple of days with kb slight abdominal pain that became severe about 1 hour prior to arrival. Reports nausea with 1 episode of vomiting. States she feels a lot of pressure to the vaginal area when she strains. States she was able to have a small bowel movement today. Historical: - Allergies: 21:10 No Known Allergies; kd3 - PMHx: 21:10 Asthma; Depression; kd3 - PSHx: 21:10 tubal ligation; kd3 - Immunization history:: Adult Immunizations up to date. - Infectious Disease History:: Denies. - Social history:: Smoking status: Patient reports the use of cigarette tobacco products, denies chronic smoking, but will smoke occasionally. ROS: 23:11 Constitutional: As per HPI kb Exam: 23:11 Constitutional: This is a well developed, well nourished patient who is awake, alert, kb and in no acute distress. Head/Face: Normocephalic, atraumatic. ENT: Moist Mucous membranes Cardiovascular: Regular rate Respiratory: Respirations even and unlabored. No increased work of breathing. Talking in full sentences Skin: Warm, dry with normal turgor. Normal color. MS/ Extremity: Pulses equal, no cyanosis. Neurovascular intact. Full, normal range of motion. Neuro: Awake and alert, GCS 15, oriented to person, place, time, and situation. 23:11 Abdomen/GI: Inspection: abdomen appears normal, Bowel sounds: normal, Palpation: moderate abdominal tenderness, in the right lower quadrant and left lower quadrant, Vital Signs: 21:08 BP 119 / 76; Pulse 105; Resp 20; Temp 98.9(O); Pulse Ox 99% on R/A; Weight 70.31 kg; kd3 Height 5 ft. 2 in. ; 21:45 BP 118 / 83; Pulse 95; Resp 20; Pulse Ox 100% ; jj7 22:30 BP 116 / 63; Pulse 79; Resp 20; Pulse Ox 100% ; jj7 23:42 BP 115 / 65; Pulse 89; Resp 19; Temp 97.8; Pulse Ox 99% ; Pain 0/10; jj7 21:08 Body Mass Index 28.35 (70.31 kg, 157.48 cm) kd3 23:42 Pain Scale: Adult jj7 MDM: 21:00 Medical Screening Exam initiated kb 23:12 Differential diagnosis: Diverticulitis, colitis, UTI, small bowel obstruction. Data kb reviewed: vital signs, nurses notes. Counseling: I had a detailed discussion with the patient and/or guardian regarding the historical points, exam findings, and any diagnostic results supporting the discharge/admit diagnosis, lab results, radiology results, the need for outpatient follow up, a family practitioner, a career advisor, to return to the emergency department if symptoms worsen or persist or if there are any questions or concerns that arise at home. 10/14 21:07 Order name: CBC with Diff; Complete Time: 22:09 kb 10/14 21:07 Order name: CMP; Complete Time: 22:06 kb 10/14 21:07 Order name: Lipase; Complete Time: 22:06 kb 10/14 21:07 Order name: UA Rfx Gregorio Cult if indicated; Complete Time: 21:48 kb 10/14 21:07 Order name: CT Abd/Pelvis - IV Contrast Only; Complete Time: 22:36 kb 10/14 21:07 Order name: IV Saline Lock; Complete Time: 21:35 kb 10/14 21:07 Order name: Labs collected and sent; Complete Time: 21:35 kb Administered Medications: 21:20 Drug: Ondansetron IVP 4 mg IVP once; over 2 minutes Route: IVP; Site: right antecubital;jj7 23:40 Follow up: Response: Marked relief of symptoms 7 21:20 Drug: NS 0.9% IV 1000 ml IV at 1 bolus Per protocol; to be given as a bolus over 60 jj7 minutes Route: IV; Rate: 1 bolus; Site: right antecubital; 23:40 Follow up: IV Status: Completed infusion 7 21:33 Drug: TORadol - Ketorolac IVP 15 mg IVP once Route: IVP; Site: right antecubital; jj7 23:40 Follow up: Response: Marked relief of symptoms jj7 23:30 Drug: Decadron - Dexamethasone IVP 10 mg IVP once Route: IVP; Site: right antecubital; jj7 23:40 Follow up: Response: Marked relief of symptoms jj7 Disposition: 10/15 07:33 I reviewed the patient's care provided by the Advanced Practice Provider and agree with tw7 the diagnosis and treatment plan. Disposition Summary: 10/14/24 23:14 Discharge Ordered Notes: Location: Home kb Condition: Stable kb Diagnosis - Inflammation of rectosigmoid colon kb Followup: kb - With: Emergency Department - When: As needed - Reason: Worsening of condition Followup: kb - With: Private Physician - When: 2 - 3 days - Reason: Recheck today's complaints, Continuance of care, Re-evaluation by your physician Discharge Instructions: - Discharge Summary Sheet kb - Colitis kb Forms: - Medication Reconciliation Form kb - Antibiotic Education kb - Prescription Opioid Use kb - Patient Portal Instructions kb - Leadership Thank You Letter kb Prescriptions: - ondansetron 4 mg Oral Tablet,disintegrating - take 1 tablet ORAL route every 6 hours as needed for nausea and vomiting; 12 kb tablet; Refills: 0, Product Selection Permitted - Augmentin 875-125 mg Oral Tablet - take 1 tablet ORAL route every 12 hours for 10 days; 20 tablet; Refills: 0, kb Product Selection Permitted - Diclofenac Sodium 75 mg Oral tablet, delayed release (enteric coated) - take 1 tablet ORAL route 2 times per day As needed; 30 tablet; Refills: 0, kb Product Selection Permitted Signatures: Dispatcher [employer] EDOK Em Harris, RADIAL SAW OPERATOR-C RADIAL SAW OPERATOR-Aura Crandall RN RN kd3 Cuco Chang RN RN jj7 Aguila Arnold MD MD tw7 Corrections: (The following items were deleted from the chart) 10/14 21:08 21:08 CBC+H.LAB.BRZ ordered. EDMS EDMS 21:08 21:08 COMPREHENSIVE METABOLIC PANEL+C.LAB.BRZ ordered. EDMS EDMS 21:08 21:08 LIPASE+C.LAB.BRZ ordered. EDMS EDMS 21:08 21:08 UA Rfx Gregorio Cult if indicated+U.LAB.BRZ ordered. EDMS EDMS 21:08 21:08 Abdomen Pelvis W Con+CT.RAD.BRZ ordered. EDMS EDMS
[2024-10-15 09:18] VITALS: BP 115/65; TEMP 97.8; O2SAT 99
== END 2024-10-14 23:44 | disposition home or self-care (01) ==
LOC: ER 20:35
DX: K51.319 Ulcerative (chronic) rectosigmoiditis with unspecified complications (principal)
CPT/HCPCS: 36415; 74177; 80053; 81003; 83690; 85025; J1100; J2405; J7030; Q9967

== ENCOUNTER 2024-11-24 21:37 | Emergency (ER) | payer SELFPAY ==
[2024-11-24] MEDS ORDERED: ONDANSETRON 4 MG/2 ML VIAL ONE (22:29)
[2024-11-24] MEDS ORDERED: KETOROLAC 30 MG/ML INJ ONE (22:29)
[2024-11-24] MEDS ORDERED: MORPHINE 4 MG/ML SYR ONE (22:30)
[2024-11-24] MEDS ORDERED: FAMOTIDINE 20 MG/2 ML VIAL IV ONE (22:30)
[2024-11-24] MEDS ORDERED: NA CHLORIDE 0.9% 1,000 ML ONE (22:30)
--- NOTE | 2024-11-24 22:44 | RAD REPORT ---
EXAMINATION: Abdomen Pelvis W Contrast CLINICAL INDICATION: Female, 29 years old.ABD PAIN TECHNIQUE: CT abdomen and pelvis was performed, after the administration of IV contrast, [facility]. Axial, sagittal and coronal reconstructions were obtained. One or more of the following dose reduction techniques were used: Automated exposure control, adjustment of the mA and/o r kV according to patient size, and/or iterative reconstruction. Unless otherwise specified, incidental findings do not require dedicated imaging follow-up. [id number]. COMPARISON: 10/30/2024 FINDINGS: LOWER CHEST: No acute process identified. No significant pericardial effusion. UPPER GI: No significant abnormality. LIVER: No significant focal abnormality. GALLBLADDER/BILE DUCTS: No biliary ductal dilatation.? PANCREAS: No mass, ductal dilation, or reno-pancreatic fluid. SPLEEN: Unremarkable. ADRENALS: No adrenal masses. KIDNEYS AND URETERS: No hydronephrosis. No suspicious renal mass. ABDOMINAL AORTA AND OTHER VESSELS: Normal caliber aorta and IVC. PERITONEUM: No abnormal free fluid. No free air. LYMPH NODES: No pathologic lymphadenopathy. ABDOMINAL WALL: Unremarkable SMALL BOWEL/COLON: Small bowel has normal course and caliber. No colonic wall thickening or pericolon ic inflammatory changes. Normal appendix. URINARY BLADDER: Underdistended but grossly unremarkable. REPRODUCTIVE ORGANS: No pathologic process. MUSCULOSKELETAL: No acute or suspicious osseous abnormality. ADDITIONAL FINDINGS: None. IMPRESSION: No acute findings within the abdomen or pelvis. No appendicitis.
[2024-11-24 22:49] LABS: Absolute Lymphocytes (CBC) 2.9 K/uL (0.7-4.9); Hematocrit 34.0 % (36.0-45.0); Hemoglobin 11.6 g/dL (12.0-15.0); MCH 30.6 pg (27.0-35.0); MCHC 34.1 g/dL (32.0-36.0); MCV 89.8 fL (80-100); MPV 7.0 fL (7.6-11.3); Nucleated RBC Absolute Count 0.0 (0-0); Nucleated Red Blood Cells % 0.0 % (0-0); RBC Red Blood Cell Count 3.79 M/uL (3.86-4.86); White Blood Count 8.00 thou/uL (4.3-10.9)
[2024-11-24 23:02] LABS: ALT/SGPT 15 U/L (13-56); Albumin 3.1 g/dL (3.4-5.0); Albumin/Globulin Ratio 1.1 (1.1-1.8); Alkaline Phosphatase 49 U/L (45-117); Anion Gap 8.3 mEq/L (5.0-15.0); BUN Blood Urea Nitrogen 15 mg/dL (7-18); Globulin 2.8 g/dL (2.3-3.5); Glucose Level 70 mg/dL (74-106); Lipase 20 U/L (13-75); Potassium 3.3 mEq/L (3.5-5.1)
[2024-11-24 23:03] LABS: AST/SGOT < 10 U/L (15-37)
[2024-11-25] MEDS ORDERED: NA CHLORIDE 0.9% 1,000 ML ONE (00:57)
[2024-11-25 01:41] LABS: Sqamous Epithelial 20-50 /HPF (None Seen); Urine Culture Reflex Order NOT NEEDED; Urine Microscopic Reflex YN ORDER UMIC
--- NOTE | 2024-11-25 02:15 | EDPHYS ---
Physician Documentation [facility] Name: Britney Umana Age: 29 yrs Sex: Female : 1995 Arrival Date: 11/24/2024 Time: 21:37 Bed 15 Private MD: ED Physician Jose Hernandez HPI: 11/24 22:12 This 29 yrs old Female presents to ER via Unassigned with complaints of sp4 Abdominal Pain. 11/25 20:21 29-year-old female presents with complaint of lower abdominal and pelvic pain acute sp4 onset.. INVENTORY ASSISTANT: 11/24 22:14 LMP 11/16/2024, unknown rg5 Historical: - Allergies: 22:14 No Known Allergies; rg5 - PMHx: 22:14 Anxiety; Asthma; Bipolar disorder; Depression; rg5 - PSHx: 22:14 tubal ligation; rg5 - Immunization history:: Adult Immunizations up to date. - Infectious Disease History:: Denies. - Social history:: Smoking status: Patient reports the use of cigarette tobacco products, denies chronic smoking, but will smoke occasionally. - Family history:: not pertinent. ROS: 11/25 20:21 Constitutional: Negative for fever, chills, and weight loss, positive for lower sp4 abdominal and pelvic pain All other systems are negative, Exam: 20:21 Constitutional: This is a well developed, well nourished patient who is awake, alert, sp4 and in no acute distress. Head/Face: Normocephalic, atraumatic. Eyes: Pupils equal round and reactive to light, extra-ocular motions intact. Lids and lashes normal. Conjunctiva and sclera are not injected. Cornea within normal limits. Periorbital areas with no swelling, redness, or edema. ENT: Nares patent. No nasal discharge, no septal abnormalities noted. Tympanic membranes are normal and external auditory canals are clear. Oropharynx with no redness, swelling, or masses, exudates, or evidence of obstruction, uvula midline. Mucous membranes moist. Neck: Trachea midline, no thyromegaly or masses palpated, and no cervical lymphadenopathy. Supple, full range of motion without nuchal rigidity, or vertebral point tenderness. Chest/axilla: Normal chest wall appearance and motion. Nontender with no deformity. No lesions are appreciated. Cardiovascular: Regular rate and rhythm with a normal S1 and S2. No gallops, murmurs, or rubs. No pulse deficits. Respiratory: Lungs have equal breath sounds bilaterally, clear to auscultation and percussion. No rales, rhonchi or wheezes noted. No increased work of breathing, no retractions or nasal flaring. Abdomen/GI: Soft, with normal bowel sounds. No distension or tympany. No guarding or rebound. No evidence of tenderness throughout. Back: No spinal tenderness. No costovertebral tenderness. Skin: Warm, dry with normal turgor. Normal color with no rashes, no lesions, and no evidence of cellulitis. MS/ Extremity: Pulses equal, no cyanosis. Neurovascular intact. Full, normal range of motion. Neuro: Awake and alert, GCS 15, oriented to person, place, time, and situation. Cranial nerves II-XII grossly intact. Motor strength 5/5 in all extremities. Sensory grossly intact. Psych: Awake, alert, with orientation to person, place and time. Behavior, mood, and affect are within normal limits Vital Signs: 11/24 22:14 BP 107 / 61; Pulse 91; Resp 18; Temp 98; Pulse Ox 100% on R/A; Height 5 ft. 2 in. ; rg5 11/25 00:00 BP 89 / 53; Pulse 98; Resp 18; Pulse Ox 100% ; cp4 01:01 BP 97 / 61; Pulse 89; Resp 18; Pulse Ox 100% ; cp4 02:00 BP 100 / 53; Pulse 71; Resp 18; Pulse Ox 99% ; cp4 03:04 BP 102 / 59; Pulse 67; Resp 18; Pulse Ox 100% ; cp4 Anitra Coma Score: 20:21 Eye Response: spontaneous(4). Motor Response: obeys commands(6). Verbal Response: sp4 oriented(5). Total: 15. MDM: 11/24 22:13 Medical Screening Exam initiated sp4 11/25 01:05 ED course: COMPARISON: 10/30/2024 FINDINGS: LOWER CHEST: No acute process identified. No sp4 significant pericardial effusion. UPPER GI: No significant abnormality. LIVER: No significant focal abnormality. GALLBLADDER/BILE DUCTS: No biliary ductal dilatation.? PANCREAS: No mass, ductal dilation, or reno-pancreatic fluid. SPLEEN: Unremarkable. ADRENALS: No adrenal masses. KIDNEYS AND URETERS: No hydronephrosis. No suspicious renal mass. ABDOMINAL AORTA AND OTHER VESSELS: Normal caliber aorta and IVC. PERITONEUM: No abnormal free fluid. No free air. LYMPH NODES: No pathologic lymphadenopathy. ABDOMINAL WALL: Unremarkable SMALL BOWEL/COLON: Small bowel has normal course and caliber. No colonic wall thickening or pericolonic inflammatory changes. Normal appendix. URINARYBLADDER: Underdistended but grossly unremarkable. REPRODUCTIVE ORGANS: No pathologic process. MUSCULOSKELETAL: No acute or suspicious osseous abnormality. ADDITIONAL FINDINGS: None. IMPRESSION: No acute findings within the abdomen or pelvis. No appendicitis. . 02:12 Differential diagnosis: appendicitis, cervicitis, dysfunctional uterine bleeding, sp4 dysmenorrhea, endometriosis, kidney stone, malignancy, menometrorrhagia. Data reviewed: vital signs, nurses notes, lab test result(s), radiologic studies, CT scan. Consideration of Admission/Observation Escalation of care including admission/observation considered. 20:22 Management of patient was discussed with the following:. ED course: CT negative today, sp4 pain improved, patient stable for discharge home.. 11/24 22:13 Order name: CBC with Diff; Complete Time: 00:58 sp4 11/24 22:13 Order name: CMP; Complete Time: 00:58 sp4 11/24 22:13 Order name: Lipase; Complete Time: 00:58 sp4 11/24 22:13 Order name: Test, Urine; Complete Time: 02:06 sp4 11/24 22:13 Order name: UA Rfx Gregorio Cult if indicated; Complete Time: 02:06 sp4 11/24 22:13 Order name: CT Abd/Pelvis - IV Contrast Only; Complete Time: 00:58 sp4 11/24 22:13 Order name: IV Saline Lock; Complete Time: 22:34 sp4 11/24 22:13 Order name: Labs collected and sent; Complete Time: 22:34 sp4 Administered Medications: 11/24 22:44 Drug: Famotidine IVP 20 mg IVP once; dilute with 10 mL 0.9% NaCl; give over 2 minutes rg5 Route: IVP; Site: right antecubital; 11/25 00:56 Follow up: Response: No adverse reaction cp4 11/24 22:44 Drug: NS 0.9% IV 1000 ml IV at 1 bolus Per protocol; to be given as a bolus over 60 rg5 minutes Route: IV; Rate: 1 bolus; Site: right antecubital; 11/25 01:00 Follow up: IV Status: Completed infusion cp4 11/24 22:45 Drug: TORadol - Ketorolac IVP 30 mg IVP once Route: IVP; Site: right antecubital; rg5 11/25 01:00 Follow up: Response: No adverse reaction; Pain is decreased cp4 11/24 22:45 Drug: Ondansetron IVP 8 mg IVP once; over 2 minutes Route: IVP; Site: right antecubital;rg5 11/25 01:00 Follow up: Response: No adverse reaction; Nausea is decreased cp4 11/24 22:45 Drug: morphine IVP or IV 4 mg IVP once over 4 mins Route: IVP; Infused Over: 4 mins; rg5 Site: right antecubital; 11/25 01:00 Follow up: Response: No adverse reaction; Pain is decreased cp4 01:00 CANCELLED (Incorrect orderr): ns0.45 % 1000 ml IV at 125 ml/hr continuous cp4 01:01 Drug: NS 0.9% IV 1000 ml IV at 1000 ml once; to be given as a bolus over 60 minutes cp4 Route: IV; Rate: 1000 ml; Site: right antecubital; 03:06 Follow up: IV Status: Completed infusion cp4 Disposition: 20:22 Chart complete. sp4 Disposition Summary: 11/25/24 02:15 Discharge Ordered Notes: Location: Home sp4 Problem: new sp4 Symptoms: have improved sp4 Condition: Stable sp4 Diagnosis - Pelvic and perineal pain sp4 - Acute pelvic pain in female sp4 Followup: sp4 - With: Karie De Jesus MD - When: 7 - 10 days - Reason: Recheck today's complaints Discharge Instructions: - Discharge Summary Sheet sp4 - Pelvic Pain, Female sp4 Forms: - Work release form sp4 - Patient Portal Instructions sp4 Prescriptions: - meloxicam 15 mg Oral tablet - take 1 tablet ORAL route daily PRN pain; 30 tablet; Refills: 0, Product sp4 Selection Permitted - dicyclomine 20 mg Oral tablet - take 1 tablet ORAL route 3 times per day PRN abdominal cramps; 30 tablet; sp4 Refills: 0, Product Selection Permitted - ondansetron 8 mg Oral Tablet,disintegrating - take 1 tablet ORAL route every 8 hours PRN nausea; 30 tablet; Refills: 0, sp4 Product Selection Permitted Signatures: Dispatcher [employer] Jose Bedoya MD MD sp4 Karen Pastor cp4 Edenilson Tinsley, RN RN rg5 Corrections: (The following items were deleted from the chart) 01:00 00:59 NS IV 0.45 % 1000 ml IV at 125 ml/hr continuous ordered. cp4 cp4
--- NOTE | 2024-11-25 02:15 | ER ---
Nurse's Notes [facility] Name: Britney Umana Age: 29 yrs Sex: Female : 1995 Arrival Date: 11/24/2024 Time: 21:37 Bed 15 Private MD: Diagnosis: Pelvic and perineal pain;Acute pelvic pain in female Presentation: 11/24 22:10 Chief complaint: EMS states: patient complaint on \T\ off abdominal pain for 1 month but rg5 1 hr ago started having severe pain. Coronavirus screen: Client denies travel out of the [place] in the last 14 days. Ebola Screen: Patient negative for fever greater than or equal to 101.5 degrees Fahrenheit, and additional compatible Ebola Virus Disease symptoms Patient denies exposure to infectious person. Patient denies travel to an Ebola-affected area in the 21 days before illness onset. Initial Sepsis Screen: Does the patient meet any 2 criteria? No. Patient's initial sepsis screen is negative. Does the patient have a suspected source of infection? No. Patient's initial sepsis screen is negative. Risk Assessment: Do you want to hurt yourself or someone else? Patient reports no desire to harm self or others. Onset of symptoms was November 24, 2024. Care prior to arrival: Medication(s) given: Tylenol, 650 mg, tab zofran IV IV initiated. 20 GA, in the right antecubital area. 22:10 Method Of Arrival: EMS: [facility] rg5 22:10 Acuity: CARLYLE 3 rg5 Triage Assessment: 22:14 General: Appears uncomfortable, Behavior is calm, cooperative, appropriate for age. rg5 Pain: Complains of pain in abdomen Pain currently is 6 out of 10 on a pain scale. Quality of pain is described as aching. EENT: No signs and/or symptoms were reported regarding the EENT system. Neuro: Level of Consciousness is awake, alert, obeys commands, Oriented to person, place, time, situation. Cardiovascular: Denies chest pain. Respiratory: Airway is patent Trachea midline Respiratory effort is even, unlabored. GI: Abdomen is round non-distended, Reports upper abdominal pain. : No signs and/or symptoms were reported regarding the genitourinary system. Derm: Skin is healthy with good turgor, Skin is dry, Skin is normal. Musculoskeletal: Circulation, motion, and sensation intact. Capillary refill < 3 seconds, Range of motion: intact in all extremities. SAFETY ADVISOR: 22:14 LMP 11/16/2024, unknown rg5 Historical: - Allergies: 22:14 No Known Allergies; rg5 - PMHx: 22:14 Anxiety; Asthma; Bipolar disorder; Depression; rg5 - PSHx: 22:14 tubal ligation; rg5 - Immunization history:: Adult Immunizations up to date. - Infectious Disease History:: Denies. - Social history:: Smoking status: Patient reports the use of cigarette tobacco products, denies chronic smoking, but will smoke occasionally. - Family history:: not pertinent. Screenin:18 [facility] ED Fall Risk Assessment (Adult) History of falling in the last 3 months, rg5 including since admission No falls in past 3 months (0 pts) Confusion or Disorientation No (0 pts) Intoxicated or Sedated No (0 pts) Impaired Gait No (0 pts) Mobility Assist Device Used No (0 pt) Altered Elimination No (0 pt) Score/Fall Risk Level 0 - 2 = Low Risk Oriented to surroundings, Maintained a safe environment, Hourly rounding (assess needs \T\ fall precautionary measures) done. Abuse screen: Denies threats or abuse. Nutritional screening: No deficits noted. Tuberculosis screening: No symptoms or risk factors identified. Assessment: 22:18 Pain: Complains of pain in abdomen. rg5 23:00 Reassessment: Patient and/or family updated on plan of care and expected duration. Pain rg5 level reassessed. Patient is alert, oriented x 3, equal unlabored respirations, skin warm/dry/pink. Patient states symptoms have improved. 11/25 00:00 Reassessment: Patient and/or family updated on plan of care and expected duration. Pain rg5 level reassessed. Patient is alert, oriented x 3, equal unlabored respirations, skin warm/dry/pink. General: Appears in no apparent distress. comfortable. 02:30 Reassessment: Dispo pending IV fluids. cp4 Vital Signs: 11/24 22:14 BP 107 / 61; Pulse 91; Resp 18; Temp 98; Pulse Ox 100% on R/A; Height 5 ft. 2 in. ; rg5 11/25 00:00 BP 89 / 53; Pulse 98; Resp 18; Pulse Ox 100% ; cp4 01:01 BP 97 / 61; Pulse 89; Resp 18; Pulse Ox 100% ; cp4 02:00 BP 100 / 53; Pulse 71; Resp 18; Pulse Ox 99% ; cp4 03:04 BP 102 / 59; Pulse 67; Resp 18; Pulse Ox 100% ; cp4 Anitra Coma Score: 20:21 Eye Response: spontaneous(4). Motor Response: obeys commands(6). Verbal Response: sp4 oriented(5). Total: 15. ED Course: 11/24 22:09 Patient arrived in ED. rg5 22:10 Edenilson Tinsley, OBIE is Primary Nurse. rg5 22:11 Jose Hernandez MD is Attending Physician. sp4 22:14 Triage completed. rg5 22:14 Arm band placed on. rg5 22:18 Patient has correct armband on for positive identification. Bed in low position. Call rg5 light in reach. Side rails up X 1. Door closed. Noise minimized. Warm blanket given. 22:18 No provider procedures requiring assistance completed. Maintain EMS IV. Dressing rg5 intact. Good blood return noted. Gauge \T\ site: 20g Right AC. Flushed with 10 mL NS. Patient maintains SpO2 saturation greater than 95% on room air. 22:34 CT Abd/Pelvis - IV Contrast Only In Process Unspecified. EDMS 11/25 02:13 Karie De Jesus MD is Referral Physician. sp4 03:05 Provided Education on: pelvic pain. cp4 03:05 intact, bleeding controlled, No redness/swelling at site. Pressure dressing applied. cp4 Administered Medications: 11/24 22:44 Drug: Famotidine IVP 20 mg IVP once; dilute with 10 mL 0.9% NaCl; give over 2 minutes rg5 Route: IVP; Site: right antecubital; 11/25 00:56 Follow up: Response: No adverse reaction cp4 11/24 22:44 Drug: NS 0.9% IV 1000 ml IV at 1 bolus Per protocol; to be given as a bolus over 60 rg5 minutes Route: IV; Rate: 1 bolus; Site: right antecubital; 11/25 01:00 Follow up: IV Status: Completed infusion cp4 11/24 22:45 Drug: TORadol - Ketorolac IVP 30 mg IVP once Route: IVP; Site: right antecubital; rg5 11/25 01:00 Follow up: Response: No adverse reaction; Pain is decreased cp4 11/24 22:45 Drug: Ondansetron IVP 8 mg IVP once; over 2 minutes Route: IVP; Site: right antecubital;rg5 11/25 01:00 Follow up: Response: No adverse reaction; Nausea is decreased cp4 11/24 22:45 Drug: morphine IVP or IV 4 mg IVP once over 4 mins Route: IVP; Infused Over: 4 mins; rg5 Site: right antecubital; 11/25 01:00 Follow up: Response: No adverse reaction; Pain is decreased cp4 01:00 CANCELLED (Incorrect orderr): ns0.45 % 1000 ml IV at 125 ml/hr continuous cp4 01:01 Drug: NS 0.9% IV 1000 ml IV at 1000 ml once; to be given as a bolus over 60 minutes cp4 Route: IV; Rate: 1000 ml; Site: right antecubital; 03:06 Follow up: IV Status: Completed infusion cp4 Medication: 11/24 22:18 VIS not applicable for this client. rg5 Outcome: 11/25 02:15 Discharge ordered by . sp4 03:05 Discharged to home ambulatory, cp4 03:05 Condition: stable 03:05 Discharge instructions given to patient, family, Instructed on discharge instructions, follow up and referral plans. medication usage, Demonstrated understanding of instructions, follow-up care, medications, Prescriptions given X 3, 03:07 Patient left the ED. cp4 Signatures: Dispatcher [employer] Jose Bedoya MD MD sp4 Potter, Christina cp4 Edenilson Tinsley, RN RN rg5
[2024-11-25 03:16] VITALS: TEMP 98
[2024-11-25 03:22] VITALS: BP 102/59; O2SAT 100
== END 2024-11-25 03:07 | disposition home or self-care (01) ==
LOC: ER 21:37
DX: R10.20 Pelvic and perineal pain unspecified side (principal)
CPT/HCPCS: 36415; 74177; 80053; 81001; 81025; 82565; 83690; 85025; 96361; 96374; 96375; 99284; J1885; J2405; J7030; Q9967